=== PATIENT | male | born 1940 | race Caucasian/White ===

== ENCOUNTER → 2017-05-31 | Outpatient (CLI) | payer MEDICARE ==
--- NOTE | 2017-05-31 11:10 | US ---
EXAMINATION TYPE: US duplex aorta DATE OF EXAM: 05/31/2017 COMPARISON: NONE CLINICAL HISTORY: Z13.6 Enc for screening for cardiovascular disorde. EXAM MEASUREMENTS: Abdominal Aorta: Proximal: 2.1 x 2.1 cm Mid: 2.1 x 2.1 cm Distal: 1.7 x 2.1 cm Bifurcation: rt 1.3 x 1.0 cm lt 1.2 x 1.4 cm limited vis due to body habitus, normal aorta as visualized. IMPRESSION: No evidence for abdominal aortic aneurysm.
== END | disposition home or self-care (01) ==
LOC: RADUSWWP 10:08
PROVIDERS: ATTEND Family Medicine
DX: Z13.6 Encounter for screening for cardiovascular disorders (principal)
CPT/HCPCS: 93979

== ENCOUNTER 2018-05-27 13:32 | Inpatient (IN) | payer MEDICARE ==
[2018-05-27] MEDS ORDERED: IPRATROPIUM-ALBUTEROL 3 ML NEB INHALATION STA ×3 (14:02→17:06)
[2018-05-27] MEDS ORDERED: SODIUM CHLORIDE 0.9% 1,000 ML IV STA ×2 (14:02→16:07)
[2018-05-27] MEDS ORDERED: methylPREDNISolone SOD SUCCI 125 MG/2 ML VIAL IV STA (14:02)
--- NOTE | 2018-05-27 14:05 | ED ---
SOB HPI - General Chief Complaint: Shortness of Breath Stated Complaint: ELIUD Time Seen by Provider: 05/27/18 13:51 Source: patient, RN notes reviewed Mode of arrival: ambulatory Limitations: no limitations - History of Present Illness Initial Comments: This is a 78-year-old male history of asthma who states she's been having severe shortness of breath since last night just after he went to bed. He tries home inhalers without much relief. No chest pain reported no fevers chills or sweats he does state he saw his doctor earlier in week was placed on antibiotics and a Medrol Dosepak he is almost always a Dosepak. He has exertional dyspnea. He believes this is an asthma exacerbation he has no other complaints or modifying factors. MD Complaint: shortness of breath - Related Data Home Medications Medication Instructions Recorded Confirmed Aspirin 81 mg PO DAILY 11/26/15 05/27/18 Budesonide/Formoterol Fumarate 2 puff INHALATION RT-BID 11/26/15 05/27/18 [Symbicort 160-4.5 Mcg Inhaler] Cholecalciferol [Vitamin D3] 1,000 unit PO DAILY 11/26/15 05/27/18 Cinnamon Bark [Cinnamon] 500 mg PO BID 11/26/15 05/27/18 Losartan [Cozaar] 25 mg PO DAILY 11/26/15 05/27/18 Metoprolol Tartrate [Lopressor] 75 mg PO BID 11/26/15 05/27/18 Multivitamins, Thera [Multivitamin] 1 tab PO DAILY 11/26/15 05/27/18 Warfarin [Coumadin] 2.5 mg PO SUMOTHSA 11/26/15 05/27/18 Warfarin [Coumadin] 5 mg PO TUWEFR 11/26/15 05/27/18 Azithromycin [Zithromax Z-pack] See Taper PO DIRECTED 05/27/18 05/27/18 Fluticasone Nasal [place] [Flonase 2 spr EA NOSTRIL DAILY 05/27/18 05/27/18 Nasal [place]] Metoprolol Tartrate [Lopressor] 50 mg PO DAILY@1700 05/27/18 05/27/18 Pravastatin Sodium [Pravachol] 80 mg PO DAILY 05/27/18 05/27/18 methylPREDNISolone Dose Pack See Taper PO DIRECTED 05/27/18 05/27/18 [Medrol Dose Pack] Allergies Allergy/AdvReac Type Severity Reaction Status Date / Time No Known Allergies Allergy Verified 05/27/18 13:59 Review of Systems ROS Statement: Those systems with pertinent positive or pertinent negative responses have been documented in the HPI. ROS Other: All systems not noted in ROS Statement are negative. Past Medical History Past Medical History: Atrial Fibrillation, Asthma, Hyperlipidemia, Hypertension History of Any Multi-Drug Resistant Organisms: None Reported Past Surgical History: Heart Catheterization Additional Past Surgical History / Comment(s): EXC CATARACTS. CERVICAL FUSION. TOTAL SUNITHA HIPS. UMB HERNIA. RT SCOPE X2. 16 TOTAL RT KNEE Past Psychological History: No Psychological Hx Reported Smoking Status: Former smoker Past Alcohol Use History: Occasional Past Drug Use History: None Reported - Past Family History Mother Additional Family Medical History / Comment(s): LIVER/COLON CANCER Father Additional Family Medical History / Comment(s): CABG. AGE 83 General Exam - General Exam Comments Initial Comments: This is a well-developed well-nourished awake alert oriented 3 male Limitations: no limitations General appearance: alert, in no apparent distress Head exam: Present: atraumatic, normocephalic, normal inspection Eye exam: Present: normal appearance, PERRL, EOMI. Absent: scleral icterus, conjunctival injection, periorbital swelling ENT exam: Present: normal exam, mucous membranes moist Neck exam: Present: normal inspection, other (No stridor JVD or bruits). Absent : tenderness, meningismus, lymphadenopathy Respiratory exam: Present: wheezes, decreased breath sounds. Absent: respiratory distress, rales, rhonchi, stridor Cardiovascular Exam: Present: regular rate, normal rhythm, normal heart sounds. Absent: systolic murmur, diastolic murmur, rubs, gallop, clicks GI/Abdominal exam: Present: soft, normal bowel sounds. Absent: distended, tenderness, guarding, rebound, rigid Extremities exam: Present: normal inspection, full ROM, normal capillary refill. Absent: tenderness, pedal edema, joint swelling, calf tenderness Back exam: Present: normal inspection Neurological exam: Present: alert, oriented X3, CN II-XII intact Psychiatric exam: Present: normal affect, normal mood Skin exam: Present: warm, dry, intact, normal color. Absent: rash Course Vital Signs 05/27/18 05/27/18 05/27/18 13:46 14:17 14:28 Temperature 98.2 F Pulse Rate 76 104 H 96 Respiratory 18 Rate Blood Pressure 164/89 O2 Sat by Pulse 95 Oximetry 05/27/18 05/27/18 14:40 15:30 Temperature Pulse Rate 88 98 Respiratory 16 Rate Blood Pressure 132/93 O2 Sat by Pulse 96 Oximetry - Reevaluation(s) Reevaluation #1: 05/27/18 15:15 Patient is still dyspneic and only feels better with oxygen. Another updraft has been ordered Reevaluation #2: 05/27/18 17:04 Reevaluation patient reveals minimal improvement thus far with his treatment. The distal of breath will be ordered. Medical Decision Making - Medical Decision Making Patient is feeling to improve with aggressive severe treatment. He has not oral antibiotics and steroids I'll patient and his family. He will be admitted for inpatient treatment. - Lab Data Result diagrams: 05/27/18 14:22 05/27/18 14:22 Lab Results 05/27/18 05/27/18 05/27/18 Range/Units 14:22 14:22 14:22 WBC 6.7 (3.8-10.6) k/uL RBC 5.06 (4.30-5.90) m/uL Hgb 15.2 (13.0-17.5) gm/dL Hct 47.0 (39.0-53.0) % MCV 92.9 (80.0-100.0) fL MCH 30.0 (25.0-35.0) pg MCHC 32.3 (31.0-37.0) g/dL RDW 14.5 (11.5-15.5) % Plt Count 221 (150-450) k/uL Neutrophils % 85 % Lymphocytes % 8 % Monocytes % 4 % Eosinophils % 1 % Basophils % 0 % Neutrophils # 5.7 (1.3-7.7) k/uL Lymphocytes # 0.5 L (1.0-4.8) k/uL Monocytes # 0.3 (0-1.0) k/uL Eosinophils # 0.1 (0-0.7) k/uL Basophils # 0.0 (0-0.2) k/uL PT (9.0-12.0) sec INR (<1.2) APTT (22.0-30.0) sec Sodium 141 (137-145) mmol/L Potassium 4.3 (3.5-5.1) mmol/L Chloride 104 (98-107) mmol/L Carbon Dioxide 27 (22-30) mmol/L Anion Gap 10 mmol/L BUN 27 H (9-20) mg/dL Creatinine 1.04 (0.66-1.25) mg/dL Est GFR (CKD-EPI)AfAm 81 (>60 ml/min/1.73 sqM) Est GFR (CKD-EPI)NonAf 70 (>60 ml/min/1.73 sqM) Glucose 151 H (74-99) mg/dL Calcium 9.0 (8.4-10.2) mg/dL Magnesium 2.0 (1.6-2.3) mg/dL Total Bilirubin 0.6 (0.2-1.3) mg/dL AST 69 H (17-59) U/L ALT 60 (21-72) U/L Alkaline Phosphatase 81 (38-126) U/L Total Creatine Kinase 278 H (55-170) U/L CK-MB (CK-2) 4.3 H (0.0-2.4) ng/mL CK-MB (CK-2) Rel Index 1.5 Troponin I <0.012 (0.000-0.034) ng/mL NT-Pro-B Natriuret Pep pg/mL Total Protein 6.7 (6.3-8.2) g/dL Albumin 4.0 (3.5-5.0) g/dL 05/27/18 05/27/18 Range/Units 14:22 14:22 WBC (3.8-10.6) k/uL RBC (4.30-5.90) m/uL Hgb (13.0-17.5) gm/dL Hct (39.0-53.0) % MCV (80.0-100.0) fL MCH (25.0-35.0) pg MCHC (31.0-37.0) g/dL RDW (11.5-15.5) % Plt Count (150-450) k/uL Neutrophils % % Lymphocytes % % Monocytes % % Eosinophils % % Basophils % % Neutrophils # (1.3-7.7) k/uL Lymphocytes # (1.0-4.8) k/uL Monocytes # (0-1.0) k/uL Eosinophils # (0-0.7) k/uL Basophils # (0-0.2) k/uL PT 39.3 H (9.0-12.0) sec INR 4.1 H (<1.2) APTT 31.8 H (22.0-30.0) sec Sodium (137-145) mmol/L Potassium (3.5-5.1) mmol/L Chloride (98-107) mmol/L Carbon Dioxide (22-30) mmol/L Anion Gap mmol/L BUN (9-20) mg/dL Creatinine (0.66-1.25) mg/dL Est GFR (CKD-EPI)AfAm (>60 ml/min/1.73 sqM) Est GFR (CKD-EPI)NonAf (>60 ml/min/1.73 sqM) Glucose (74-99) mg/dL Calcium (8.4-10.2) mg/dL Magnesium (1.6-2.3) mg/dL Total Bilirubin (0.2-1.3) mg/dL AST (17-59) U/L ALT (21-72) U/L Alkaline Phosphatase (38-126) U/L Total Creatine Kinase (55-170) U/L CK-MB (CK-2) (0.0-2.4) ng/mL CK-MB (CK-2) Rel Index Troponin I (0.000-0.034) ng/mL NT-Pro-B Natriuret Pep 442 pg/mL Total Protein (6.3-8.2) g/dL Albumin (3.5-5.0) g/dL - EKG Data -: EKG Interpreted by Me (EKG shows atrial fibrillation with a rapid ventricular response rate of 105) - Radiology Data Radiology results: report reviewed (I did review the imaging and report no acute findings.), image reviewed Critical Care Time Critical Care Time: Yes Critical Care Time: 39 minutes of critical care time which includes initial presentation with history physical labs x-rays multiple reevaluation patient responsive therapy discuss with the patient family regarding findings discussed with the admitting physician admission orders and documentation of the above. Disposition Clinical Impression: Acute exacerbation of chronic obstructive airways disease, Adult respiratory distress syndrome, Failure of outpatient treatment Disposition: ADMITTED IP TO THIS HOSP Condition: Serious Referrals: Jonny Stuart MD [Primary Care Provider] - 1-2 days
[2018-05-27 14:35] LABS: Basophils % (A) 0 %; Eosinophils # (A) 0.1 k/uL (0-0.7); Eosinophils % (A) 1 %; HGB 15.2 gm/dL (13.0-17.5); Lymphocytes # (A) 0.5 k/uL (1.0-4.8); Lymphocytes % (A) 8 %; MCHC 32.3 g/dL (31.0-37.0); MCV 92.9 fL (80.0-100.0); Mean Platelet Volume 6.4; Monocytes # (A) 0.3 k/uL (0-1.0); Monocytes % (A) 4 %; Neutrophils # (A) 5.7 k/uL (1.3-7.7); Neutrophils % (A) 85 %; Platelet Count 221 k/uL (150-450); RBC 5.06 m/uL (4.30-5.90); RDW 14.5 % (11.5-15.5); WBC 6.7 k/uL (3.8-10.6)
[2018-05-27 14:45] LABS: Potassium 4.3 mmol/L (3.5-5.1); Total Bilirubin 0.6 mg/dL (0.2-1.3); Total Protein 6.7 g/dL (6.3-8.2)
[2018-05-27 14:55] LABS: INR 4.1 (<1.2); Partial Thromboplastin Time 31.8 sec (22.0-30.0); Prothrombin Time 39.3 sec (9.0-12.0)
[2018-05-27 14:59] LABS: Creatine Kinase 278 U/L (55-170)
--- NOTE | 2018-05-27 15:01 | XR ---
EXAMINATION TYPE: XR chest 2V DATE OF EXAM: 05/27/2018 COMPARISON: NONE HISTORY: Dyspnea, difficulty breathing TECHNIQUE: Frontal and lateral views of the chest are obtained. FINDINGS: There is no focal air space opacity, pleural effusion, or pneumothorax seen. The cardiac silhouette size is within normal limits. The osseous structures are intact. There are overlying car diac leads. Atheromatous change present within the aorta. Prominent lung volumes may be indicative of underlying COPD. There is thoracic spondylosis. IMPRESSION: No acute cardiopulmonary process.
[2018-05-27 15:10] LABS: Creatine Kinase MB 4.3 ng/mL (0.0-2.4); Troponin I <0.012 ng/mL (0.000-0.034)
[2018-05-27 18:21] VITALS: BMI 35.9
[2018-05-27] MEDS: methylPREDNISolone SOD SUCCI 125 MG/2 ML VIAL IV SCH ×2 (19:11→22:56)
[2018-05-27] MEDS: METOPROLOL TARTRATE 50 MG TAB PO SCH (19:21)
[2018-05-27 21:04] LABS: Glucose,Whole Blood 203 mg/dL (75-99)
[2018-05-27] MEDS: IPRATROPIUM-ALBUTEROL 3 ML NEB INHALATION SCH ×2 (21:24→23:37)
[2018-05-27] MEDS: INSULIN ASPART 100 UNIT/ML 1 ML 10 ML VIAL SQ SCH (21:37)
[2018-05-28] MEDS: IPRATROPIUM-ALBUTEROL 3 ML NEB INHALATION SCH ×5 (03:16→21:01)
[2018-05-28 06:10] LABS: Glucose,Whole Blood 172 mg/dL (75-99)
[2018-05-28] MEDS: methylPREDNISolone SOD SUCCI 125 MG/2 ML VIAL IV SCH ×2 (06:21→12:44)
[2018-05-28] MEDS: INSULIN ASPART 100 UNIT/ML 1 ML 10 ML VIAL SQ SCH ×4 (06:23→21:37)
[2018-05-28 07:03] LABS: INR 3.1 (<1.2); Prothrombin Time 29.9 sec (9.0-12.0)
[2018-05-28] MEDS: PRAVASTATIN SODIUM 80 MG TAB PO SCH (08:21)
[2018-05-28] MEDS: METOPROLOL TARTRATE 50 MG TAB PO SCH ×2 (08:21→17:45)
[2018-05-28] MEDS: CHOLECALCIFEROL 1,000 UNIT TAB PO SCH (08:21)
[2018-05-28] MEDS: ASPIRIN 81 MG PO SCH (08:21)
[2018-05-28] MEDS: LOSARTAN 25 MG TAB PO SCH (08:21)
[2018-05-28] MEDS ORDERED: AZITHROMYCIN 250 MG TAB PO SCH (09:00)
[2018-05-28 12:22] LABS: Glucose,Whole Blood 141 mg/dL (75-99)
[2018-05-28] MEDS: MULTIVITAMINS, THERA 1 EACH TAB PO SCH (12:44)
[2018-05-28] MEDS: FLUTICASONE 50MCG/SPRAY NASAL 16GM EA NOSTRIL SCH (12:44)
--- NOTE | 2018-05-28 13:32 | P.CRDCN ---
History of Present Illness History of present illness: This is a pleasant 78 showed male past medical history significant for chronic persistent atrial fibrillation status post failed cardioversion on long-term anticoagulation with Coumadin, asthma, dyslipidemia and hypertension. He denies history of coronary artery disease. We have asked to see him in consultation secondary to atrial fibrillation with poorly controlled ventricular rate. He follows with Dr. Guerrier in the office. He presented to the hospital yesterday with symptoms of shortness of breath and cough. He has been diagnosed with an acute exacerbation of COPD. He denies symptoms of chest discomfort, palpitations or dizziness. EKG on arrival revealed atrial fibrillation with a rate of 105 with right bundle branch block. He is currently maintained on Lopressor 75 mg twice a day with an additional dose of 50 mg taken around dinnertime. Chest x-ray on admission is negative for acute cardiopulmonary process. Laboratory data reviewed, WBC 6.7, hemoglobin 15.2, platelets 221, sodium 141, potassium 4.3, creatinine 1.04, magnesium 2.0, cardiac enzymes negative 1, NT proBNP 442, INR 4.1 on admission repeat this morning 3.1. Coumadin was held last night. Per the patient he had his level checked in the office last week and advised to take an additional dose of 5 mg. Most recent echocardiogram obtained in the office February 2018 reveals preserved left ventricular systolic function with ejection fraction 50-55%, mild mitral regurgitation and mildly dilated left atrium. At the time of my exam: CONSTITUTIONAL: Denies fever. Denies chills. EYES: Denies blurred vision. Denies vision changes. Denies eye pain. EARS, NOSE, MOUTH & THROAT: Denies headache. Denies sore throat. Denies ear pain. CARDIOVASCULAR: Denies chest pain. Denies shortness of breath. Denies orthopnea. Denies PND. Denies palpitations. RESPIRATORY: Complains of cough. GASTROINTESTINAL: Denies abdominal pain. Denies diarrhea. Denies constipation. Denies nausea. Denies vomiting. MUSCULOSKELETAL: Denies myalgias. INTEGUMENTARY: Denies pruitis. Denies rash. NEUROLOGIC: Denies numbness. Denies tingling. Denies weakness. PSYCHIATRIC: Denies anxiety. Denies depression. ENDOCRINE: Denies fatigue. Denies weight change. Denies polydipsia. Denies polyurina. GENITOURINARY: Denies burning, hematuria or urgency with micturation. HEMATOLOGIC: Denies history of anemia. Denies bleeding. Blood pressure 146/93 heart rate 102 afebrile maintaining oxygen saturation on room air GENERAL: This is a 78-year-old Arlene male in no apparent distress at the time of my examination. HEENT: Head is atraumatic, normocephalic. Pupils are equal, round. Sclerae anicteric. Conjunctivae are clear. Mucous membranes of the mouth are moist. Neck is supple. There is no jugular venous distention. No carotid bruit is heard. LUNGS: Clear to auscultation no wheezes, rales or rhonchi. No chest wall tenderness is noted on palpation or with deep breathing. HEART: Regular rate and rhythm without murmurs, rubs or gallops. S1 and S2 heard. ABDOMEN: Soft, nontender. Bowel sounds are heard. No organomegaly noted. EXTREMITIES: No evidence of peripheral edema and no calf tenderness noted. VASCULAR: Radial and dorsalis pedis pulses palpated, no evidence of clubbing. NEUROLOGIC: Patient is awake, alert and oriented x3. ASSESSMENT Permanent atrial fibrillation with poorly controlled ventricular rate on long- term anticoagulation with Coumadin Supratherapeutic INR, Coumadin was held last night Hypertension Dyslipidemia PLAN Continue current medical regimen. Ongoing telemetry monitoring. Review of the office records reveals this is a gentleman who frequently struggles with poorly controlled ventricular rates. Considering he is receiving duoneb as well as IV steroids we will not add any further medication at this time however if his rates continue to remain elevated we will consider adding Cardizem. Thank you kindly for this consultation. The above impression and plan of care have been discussed and directed by the signing physician. Teresita Peña, nurse practitioner, acting as scribe for signing physician. Past Medical History Past Medical History: Atrial Fibrillation, Asthma, Hyperlipidemia, Hypertension History of Any Multi-Drug Resistant Organisms: None Reported Past Surgical History: Heart Catheterization Additional Past Surgical History / Comment(s): EXC CATARACTS. CERVICAL FUSION. TOTAL SUNITHA HIPS. UMB HERNIA. RT SCOPE X2. 7--16 TOTAL RT KNEE Past Anesthesia/Blood Transfusion Reactions: No Reported Reaction Past Psychological History: No Psychological Hx Reported Smoking Status: Former smoker Past Alcohol Use History: Occasional Additional Past Alcohol Use History / Comment(s): SMOKED 15 YEARS EST, 1 PPD, QUIT 1988 EST. ALCOHOL ADMITS TO 2 SHOT OF ALCOHOL A DAY. Past Drug Use History: None Reported - Past Family History Mother Additional Family Medical History / Comment(s): LIVER/COLON CANCER Father Family Medical History: Myocardial Infarction ([place]) Additional Family Medical History / Comment(s): CABG. AGE 83 Medications and Allergies Home Medications Medication Instructions Recorded Confirmed Type Aspirin 81 mg PO DAILY 11/26/15 05/27/18 History Budesonide/Formoterol Fumarate 2 puff INHALATION RT-BID 11/26/15 05/27/18 History [Symbicort 160-4.5 Mcg Inhaler] Cholecalciferol [Vitamin D3] 1,000 unit PO DAILY 11/26/15 05/27/18 History Cinnamon Bark [Cinnamon] 500 mg PO BID 11/26/15 05/27/18 History Losartan [Cozaar] 25 mg PO DAILY 11/26/15 05/27/18 History Metoprolol Tartrate [Lopressor] 75 mg PO BID 11/26/15 05/27/18 History Multivitamins, Thera [Multivitamin] 1 tab PO DAILY 11/26/15 05/27/18 History Warfarin [Coumadin] 2.5 mg PO SUMOTHSA 11/26/15 05/27/18 History Warfarin [Coumadin] 5 mg PO TUWEFR 11/26/15 05/27/18 History Azithromycin [Zithromax Z-pack] See Taper PO DIRECTED 05/27/18 05/27/18 History Fluticasone Nasal [place] [Flonase 2 spr EA NOSTRIL DAILY 05/27/18 05/27/18 History Nasal [place]] Metoprolol Tartrate [Lopressor] 50 mg PO DAILY@1700 05/27/18 05/27/18 History Pravastatin Sodium [Pravachol] 80 mg PO DAILY 05/27/18 05/27/18 History methylPREDNISolone Dose Pack See Taper PO DIRECTED 05/27/18 05/27/18 History [Medrol Dose Pack] Allergies Allergy/AdvReac Type Severity Reaction Status Date / Time No Known Allergies Allergy Verified 05/27/18 13:59 Physical Exam Vitals: Vital Signs Temp Pulse Pulse Pulse Resp BP BP 05/28/18 12:11 102 H 05/28/18 12:02 108 H 05/28/18 08:52 110 H 05/28/18 08:34 100 05/28/18 08:00 98.1 F 110 H 146/93 05/28/18 04:00 98.1 F 108 H 18 135/78 05/28/18 03:26 118 H 05/28/18 03:16 117 H 05/28/18 00:00 97.8 F 100 18 124/87 05/27/18 23:46 108 H 05/27/18 23:37 109 H 05/27/18 21:35 112 H 05/27/18 21:24 110 H 20 05/27/18 20:00 98.2 F 104 H 20 143/73 05/27/18 18:03 116 H 20 146/75 05/27/18 17:39 121 H 05/27/18 17:29 117 H 05/27/18 17:28 98.1 F 107 H 18 128/94 05/27/18 17:00 105 H 13 120/98 05/27/18 16:30 115 H 10 L 128/92 05/27/18 16:00 110 H 18 122/76 05/27/18 15:40 112 H 05/27/18 15:30 98 05/27/18 14:40 88 16 132/93 05/27/18 14:28 96 05/27/18 14:17 104 H 05/27/18 13:46 98.2 F 76 18 164/89 Pulse Ox 05/28/18 12:11 05/28/18 12:02 05/28/18 08:52 05/28/18 08:34 05/28/18 08:00 93 L 05/28/18 04:00 94 L 05/28/18 03:26 05/28/18 03:16 05/28/18 00:00 93 L 05/27/18 23:46 05/27/18 23:37 05/27/18 21:35 05/27/18 21:24 92 L 05/27/18 20:00 97 05/27/18 18:03 94 L 05/27/18 17:39 05/27/18 17:29 05/27/18 17:28 95 05/27/18 17:00 95 05/27/18 16:30 94 L 05/27/18 16:00 97 05/27/18 15:40 05/27/18 15:30 05/27/18 14:40 96 05/27/18 14:28 05/27/18 14:17 05/27/18 13:46 95 Intake and Output 05/27/18 05/28/18 05/28/18 22:59 06:59 14:59 Intake Total 416 Output Total 1 Balance -1 416 Intake: Oral 416 Output: Urine/Stool Mix 1 Other: # Voids 1 Weight 113.4 kg 120.1 kg Results 05/27/18 14:22 05/27/18 14:22 Cardiac Enzymes 05/27/18 05/27/18 Range/Units 14:22 14:22 AST 69 H (17-59) U/L CK-MB (CK-2) 4.3 H (0.0-2.4) ng/mL Troponin I <0.012 (0.000-0.034) ng/mL Coagulation 05/27/18 05/28/18 Range/Units 14:22 06:20 PT 39.3 H 29.9 H (9.0-12.0) sec APTT 31.8 H (22.0-30.0) sec CBC 05/27/18 Range/Units 14:22 WBC 6.7 (3.8-10.6) k/uL RBC 5.06 (4.30-5.90) m/uL Hgb 15.2 (13.0-17.5) gm/dL Hct 47.0 (39.0-53.0) % Plt Count 221 (150-450) k/uL Comprehensive Metabolic Panel 05/27/18 Range/Units 14:22 Sodium 141 (137-145) mmol/L Potassium 4.3 (3.5-5.1) mmol/L Chloride 104 (98-107) mmol/L Carbon Dioxide 27 (22-30) mmol/L BUN 27 H (9-20) mg/dL Creatinine 1.04 (0.66-1.25) mg/dL Glucose 151 H (74-99) mg/dL Calcium 9.0 (8.4-10.2) mg/dL AST 69 H (17-59) U/L ALT 60 (21-72) U/L Alkaline Phosphatase 81 (38-126) U/L Total Protein 6.7 (6.3-8.2) g/dL Albumin 4.0 (3.5-5.0) g/dL Current Medications Generic Name Dose Route Start Last Admin Trade Name Freq PRN Reason Stop Dose Admin Albuterol/Ipratropium 3 ml 05/27/18 21:00 05/28/18 12:01 Duoneb 0.5 Mg-3 Mg/3 Ml Soln INHALATION 3 ml RT-Q4H [facility] Administration Aspirin 81 mg 05/28/18 09:00 05/28/18 08:21 Aspirin PO 81 mg DAILY [facility] Administration Budesonide 1 mg 05/28/18 20:00 Pulmicort INHALATION RT-BID [facility] Cholecalciferol 1,000 unit 05/28/18 09:00 05/28/18 08:21 Vitamin D3 PO 1,000 unit DAILY [facility] Administration Doxycycline Monohydrate 100 mg 05/28/18 21:00 Vibramycin PO BID [facility] Fluticasone Propionate 2 spray 05/28/18 09:00 05/28/18 12:44 Flonase Nasal [place] EA NOSTRIL 2 spray DAILY [facility] Administration Formoterol Fumarate 20 mcg 05/28/18 20:00 Perforomist INHALATION RT-BID [facility] Insulin Aspart 0 unit 05/27/18 21:17 05/28/18 12:44 Novolog SQ 2 unit ACHS [facility] Administration Protocol Losartan Potassium 25 mg 05/28/18 09:00 05/28/18 08:21 Cozaar PO 25 mg DAILY [facility] Administration Methylprednisolone Sodium Succinate 60 mg 05/27/18 18:00 05/28/18 12:44 Solu-Medrol IV 60 mg Q6HR [facility] Administration Metoprolol Tartrate 75 mg 05/28/18 09:00 05/28/18 08:21 Lopressor PO 75 mg DAILY [facility] Administration Metoprolol Tartrate 50 mg 05/27/18 19:30 05/27/18 19:21 Lopressor PO 50 mg DAILY@1700 [facility] Administration Multivitamins 1 each 05/28/18 12:00 05/28/18 12:44 Theragran PO 1 each DAILY@1200 [facility] Administration Pravastatin Sodium 80 mg 05/28/18 09:00 05/28/18 08:21 Pravachol PO 80 mg DAILY [facility] Administration Warfarin Sodium 5 mg 05/30/18 17:12 Coumadin PO TUWEFR [facility] Warfarin Sodium 2.5 mg 05/27/18 17:15 Coumadin PO SUMOTHSA [facility] Intake and Output 05/27/18 05/28/18 05/28/18 22:59 06:59 14:59 Intake Total 416 Output Total 1 Balance -1 416 Intake: Oral 416 Output: Urine/Stool Mix 1 Other: # Voids 1 Weight 113.4 kg 120.1 kg 05/27/18 14:22 05/27/18 14:22
--- NOTE | 2018-05-28 14:01 | CONS ---
CONSULTATION DATE OF SERVICE: May 28, 2018 This is a 78-year-old male who presented to the emergency department with complaints of having an asthma attack. He complains of shortness of breath, chest tightness, wheezing, coughing about a day or so prior to admission. He was tried using his regular medications which include a Ventolin HFA inhaler and Symbicort, but he states that they did not really help. He was seen in the emergency room. The patient was admitted to the hospital for an asthma exacerbation. He recently finished off some antibiotics and a Medrol Dosepak given to him by his primary doctor, Dr. Stuart in [place]. He was apparently being treated for asthma exacerbation and possible pneumonia. The patient sees my partner, Dr. Sauceda. HOME MEDICATIONS: Include Symbicort, vitamin D3, Sinemet, Cozaar, metoprolol, multivitamins, Coumadin, Zithromax, which he just finished, Flonase, metoprolol, pravastatin and Medrol Dosepak, which he just finished. ALLERGIES: Denied. MEDICAL HISTORY: Atrial fibrillation, asthma, hyperlipidemia, hypertension. SURGICAL HISTORY: Includes heart catheterization, cataract surgery, cervical fusion, bilateral hip surgery, umbilical hernia repair, right knee scope. SOCIAL HISTORY: Positive for previous tobacco use. He smoked for about 12 or so years when he was younger. Does not smoke currently. OCCUPATIONAL HISTORY: Noncontributory. Illicit drug history is negative. FAMILY HISTORY: Positive for liver and colon cancer as well as bypass grafting. REVIEW OF SYSTEMS: Constitutional: Negative. Neurologic: Negative. HEENT negative. CARDIOVASCULAR: Irregular rapid heartbeat. PULMONARY: Shortness of breath, chest tightness, wheezing and cough. GI/ negative. RHEUMATOLOGIC/IMMUNOLOGIC negative. ENDOCRINOLOGIC and DERMATOLOGIC: Negative. It should be noted the patient has a history of chronic atrial fibrillation. The patient developed a rapid ventricular response as a result of his history of chronic atrial fibrillation. For that, he was transferred down from the 4th floor to the 3rd. I think he was started up on four and was transferred down to the cardiac floor on 3 because of the RVR. PHYSICAL EXAMINATION: Current vital signs are reviewed temperature 98.1. Heart rate about 110, respiratory rate 18, blood pressure 146/93, mean 110, room air saturation 93-94 percent. Appears in no acute distress. HEENT examination is grossly unremarkable. Mucous membranes are moist. No nasal O2 noted. NECK: Supple. Full range of motion. No adenopathy or thyromegaly. Neck veins are flat. Cardiovascular examination reveals a regular rhythm and rate. Heart rate about 110. He is clearly in atrial fibrillation. S1, S2 normal. No murmur. LUNGS: Some expiratory wheezes and rhonchi. There is prolongation on forced maneuver. No crackles. Breath sounds equal bilaterally. ABDOMEN: Soft. Bowel sounds are heard. Extremities are intact. No cyanosis, clubbing, or edema. Skin without rash. Neurologic examination is brief but nonfocal. LABS: Reviewed. White count, hemoglobin, hematocrit and platelet count are all normal. PT/INR were 29.9 and 3.1 today. Sodium, potassium, chloride normal. CO2 normal. Anion gap is 10. BUN and creatinine were 27, 1.04. The rest of the labs look good. Chest x-ray is unremarkable. EKG is consistent with atrial fibrillation. Medications are reviewed. ASSESSMENT: 1. Acute asthma exacerbation, possibly complicated by purulent tracheobronchitis. 2. Atrial fibrillation, chronically, now with rapid ventricular response. 3. Obesity. 4. Vitamin D deficiency. 5. History of hypertension. 6. Hyperlipidemia. 7. History of cataract surgery. 8. History of multiple orthopedic procedures. 9. Recent purulent tracheobronchitis/bronchopneumonia, treated by his primary doctor, Dr. Jonny Stuart. 10.Chronic anticoagulation with Coumadin because of his atrial fibrillation. PLAN: His medications reviewed. We will make sure that he is an appropriate medications for his asthma flare up. That would include short-acting beta agonist, short-acting muscarinic antagonist, long-acting beta agonist, inhaled corticosteroids, systemic corticosteroids and oral antibiotics. Additional recommendations and suggestions are forthcoming. We will continue to follow. We will await Cardiology input for his rapid ventricular response. MMODL / IJN: [id number] / MTDD
[2018-05-28 16:50] LABS: Glucose,Whole Blood 163 mg/dL (75-99)
[2018-05-28] MEDS ORDERED: METOPROLOL TARTRATE 50 MG TAB PO SCH (17:00)
[2018-05-28] MEDS: methylPREDNISolone SOD SUCCI 40 MG/ML 1 ML VIAL IV SCH ×2 (17:44→23:25)
--- NOTE | 2018-05-28 18:33 | HP ---
HISTORY AND PHYSICAL DATE OF ADMISSION: May 27, 2018. DATE OF SERVICE: May 28, 2018. PRESENTING COMPLAINT: Short of breath, wheezing. HISTORY OF PRESENT COMPLAINT: Very pleasant 78-year-old patient of Dr. Stuart who follows with [employer] Dr. Sauceda. Chronic stable medical conditions include hypertension, hyperlipidemia, obesity. Three years ago, started getting short of breath and a lot of wheezing, had a cough, some clear sputum. No fever, some chills. Continued to get worse. This started off as an upper respiratory tract symptoms with some sinus drainage. Nasal congestion was also was his was having it. Decreased appetite. Tired, run down. Patient did go to a family doctor. Did feel better. Decided to come in. Was admitted with acute asthma exacerbation. Also found to be in atrial fibrillation, rapid ventricular rate. Admitted for the same. Does feel tired and run down. Denied any fever. There was no chest pain. REVIEW OF SYSTEMS: CONSTITUTIONAL: Tired. HEENT as above. RESPIRATORY: As above. CARDIOVASCULAR: No chest pain or pressure. GASTROINTESTINAL: None. GENITOURINARY: None. MUSCULOSKELETAL: None. DERMATOLOGICAL, HEMATOLOGIC, LYMPHATICS none. PSYCHIATRY: None. NEUROLOGICAL: None. PAST MEDICAL HISTORY: Atrial fibrillation, asthma, hyperlipidemia, hypertension. PAST SURGICAL HISTORY: Cardiac catheterization, cervical fusion, total bilateral hips, right knee replacement, umbilical hernia repair, cataract extraction. SOCIAL HISTORY: Has 2 shots daily of alcohol. Smoked a pack a day for 15 years. Stopped in 1988. . Retired. FAMILY HISTORY: Of liver and colon cancer, myocardial infarction. HOME MEDICATIONS: 1. Multivitamin 1 tablet p.o. daily. 2. Zithromax. 3. Z-Edgard. 4. Medrol Dosepak. 5. Pravachol 80 mg p.o. daily. 6. Lopressor 50 mg p.o. daily. 7. Flonase. 8. Lopressor 75 mg b.i.d. 9. Cozaar 25 mg a day. 10.Symbicort 160/4.5, 2 puffs b.i.d. 11.Coumadin 5 mg on Tuesday, Tuesday, Tuesday and 2.5 mg on Tuesday, Tuesday, , and Tuesday. 12.Cinnamon 500 mg p.o. b.i.d. 13.Vitamin D3 1000 units p.o. daily. 14.Aspirin 81 mg p.o. daily. ALLERGIES: None. PHYSICAL EXAMINATION: VITAL SIGNS ON PRESENTATION: Temperature 98.2, pulse 104, respiration 18, blood pressure 152/89, pulse ox 95% on room air. GENERAL APPEARANCE: Well built. BMI 38, sitting up. Tired. EYES: Pupils equal. Conjunctivae normal. HEENT: External appearance of nose and ears normal. Oral cavity normal. NECK: JVD not raised. Mass not palpable. RESPIRATORY: Effort increased. LUNGS: Decreased breath sounds. Prolonged expiration. Some wheezing. CARDIOVASCULAR: Heart sounds regular. No edema. ABDOMEN: Distended, soft. Liver and spleen not palpable. LYMPHATICS: No lymph nodes palpable in the neck or axilla. PSYCHIATRY: Alert and oriented x3. Mood and affect normal. NEUROLOGICAL: Pupils equal. Cranial nerves grossly intact. Power and sensation grossly intact. INVESTIGATIONS: White count 6.7, hemoglobin 15.2, INR 4.1, potassium 4.3, BUN 27, creatinine 1.04. Accu-Cheks 203, 172. Troponin less than 0.012. ProBNP 442. EKG tracing personally reviewed by me shows atrial fibrillation with a rate of 105. Chest x-ray film reviewed by me shows borderline cardiomegaly. No obvious infiltrates. ASSESSMENT: 1. Acute moderate asthma exacerbation from acute tracheobronchitis. 2. Persistent atrial fibrillation, rate uncontrolled. 3. Hyperlipidemia. 4. Essential hypertension. 5. Obesity BMI 38. PLAN: Patient is put on IV Solu-Medrol, bronchodilators, inhaled steroids. Home medications are resumed. Consultations both made to Pulmonary and Cardiology. Care was discussed with the patient and at the bedside. We will hold off Coumadin today. The patient probably needs 2 nights in the hospital. Questions were discussed. Copy to Dr. Stuart. MMODL / IJN: [id number] /
[2018-05-28] MEDS: FORMOTEROL FUMARATE 20 MCG/2 ML NEBU INHALATION SCH (21:01)
[2018-05-28] MEDS: BUDESONIDE 1 MG/2 ML NEBU INHALATION SCH (21:01)
[2018-05-28 21:04] LABS: Glucose,Whole Blood 146 mg/dL (75-99)
[2018-05-28] MEDS: DOXYCYCLINE 100 MG CAP PO SCH (21:37)
[2018-05-29] MEDS: IPRATROPIUM-ALBUTEROL 3 ML NEB INHALATION SCH ×5 (00:15→16:00)
[2018-05-29 00:46] VITALS: TEMP 97.1
[2018-05-29 06:15] LABS: INR 2.7 (<1.2); Prothrombin Time 25.7 sec (9.0-12.0)
[2018-05-29 06:27] LABS: Glucose,Whole Blood 160 mg/dL (75-99)
[2018-05-29] MEDS: INSULIN ASPART 100 UNIT/ML 1 ML 10 ML VIAL SQ SCH ×2 (06:33→12:31)
[2018-05-29] MEDS: FLUTICASONE 50MCG/SPRAY NASAL 16GM EA NOSTRIL SCH (08:27)
[2018-05-29] MEDS: MULTIVITAMINS, THERA 1 EACH TAB PO SCH (08:28)
[2018-05-29] MEDS: CHOLECALCIFEROL 1,000 UNIT TAB PO SCH (08:28)
[2018-05-29] MEDS: LOSARTAN 25 MG TAB PO SCH (08:28)
[2018-05-29] MEDS: methylPREDNISolone SOD SUCCI 40 MG/ML 1 ML VIAL IV SCH (08:28)
[2018-05-29] MEDS: ASPIRIN 81 MG PO SCH (08:28)
[2018-05-29] MEDS: PRAVASTATIN SODIUM 80 MG TAB PO SCH (08:28)
[2018-05-29] MEDS: DOXYCYCLINE 100 MG CAP PO SCH (08:28)
[2018-05-29] MEDS: METOPROLOL TARTRATE 50 MG TAB PO SCH (08:31)
[2018-05-29] MEDS: FORMOTEROL FUMARATE 20 MCG/2 ML NEBU INHALATION SCH (08:41)
[2018-05-29] MEDS: BUDESONIDE 1 MG/2 ML NEBU INHALATION SCH (08:41)
[2018-05-29 11:22] LABS: Glucose,Whole Blood 158 mg/dL (75-99)
[2018-05-29 11:27] VITALS: BP 117/78; RESP 16
[2018-05-29 12:23] VITALS: PULSE 68
[2018-05-29 12:31] LABS: Hemoglobin A1C 6.1 % (4.0-6.0)
--- NOTE | 2018-05-29 14:15 | P.PN ---
Subjective Progress Note Date: 05/29/18 This is a pleasant 78 showed male past medical history significant for chronic persistent atrial fibrillation status post failed cardioversion on long-term anticoagulation with Coumadin, asthma, dyslipidemia and hypertension. He denies history of coronary artery disease. We were asked to see him in consultation secondary to atrial fibrillation with poorly controlled ventricular rate. He follows with Dr. Burgess in the office. He presented to the hospital with symptoms of shortness of breath and cough. He has been diagnosed with an acute exacerbation of COPD. He denies symptoms of chest discomfort, palpitations or dizziness. EKG on arrival revealed atrial fibrillation with a rate of 105 with right bundle branch block. His strips today continue to show atrial fibrillation, heart rate in the 90s, blood pressure 120/80, INR today 2.7. A long discussion with the patient today regarding anticoagulation with one of the newer agents, as he did come in with an elevated INR and according to the patient has had some difficulty in maintaining steady INRs. Willing to be placed on one of the newer anticoagulants, we will check on coverage regarding this Objective - Vital Signs Vital signs: Vital Signs Temp 97.1 F L 05/29/18 08:25 Pulse 68 05/29/18 12:22 Resp 16 05/29/18 11:20 BP 117/78 05/29/18 11:20 Pulse Ox 94 L 05/29/18 11:20 Intake & Output 05/28/18 05/29/18 05/29/18 18:59 06:59 18:59 Intake Total 1256 480 582 Balance 1256 480 582 Weight 119.7 kg Intake: Intake, IV Titration 600 Amount Sodium Chloride 0.9% 1, 600 000 ml @ 100 mls/hr IV . Q10H STA Rx#:[id number] Oral [phone] Other: # Voids 2 2 1 - Exam Blood pressure 146/93 heart rate 102 afebrile maintaining oxygen saturation on room air GENERAL: This is a 78-year-old Arlene male in no apparent distress at the time of my examination. HEENT: Head is atraumatic, normocephalic. Pupils are equal, round. Sclerae anicteric. Conjunctivae are clear. Mucous membranes of the mouth are moist. Neck is supple. There is no jugular venous distention. No carotid bruit is heard. LUNGS: Clear to auscultation no wheezes, rales or rhonchi. No chest wall tenderness is noted on palpation or with deep breathing. HEART: Regular rate and rhythm without murmurs, rubs or gallops. S1 and S2 heard. ABDOMEN: Soft, nontender. Bowel sounds are heard. No organomegaly noted. EXTREMITIES: No evidence of peripheral edema and no calf tenderness noted. VASCULAR: Radial and dorsalis pedis pulses palpated, no evidence of clubbing. NEUROLOGIC: Patient is awake, alert and oriented x3. - Labs CBC & Chem 7: 05/27/18 14:22 05/27/18 14:22 Labs: Abnormal Lab Results - Last 24 Hours (Table) 05/28/18 05/28/18 05/28/18 Range/Units 06:20 16:41 21:03 PT (9.0-12.0) sec INR (<1.2) POC Glucose (mg/dL) 163 H 146 H (75-99) mg/dL Hemoglobin A1c 6.1 H (4.0-6.0) % 05/29/18 05/29/18 05/29/18 Range/Units 05:32 06:25 11:20 PT 25.7 H (9.0-12.0) sec INR 2.7 H (<1.2) POC Glucose (mg/dL) 160 H 158 H (75-99) mg/dL Hemoglobin A1c (4.0-6.0) % Assessment and Plan Plan: ASSESSMENT and plan #1 chronic persistent atrial fibrillation, rate under better control #2 Supratherapeutic INR, on admission, we will check to see if the patient has coverage for Eliquis, if so we will initiate Eliquis 5 mg one tablet by mouth twice a day #3 Hypertension #4 Dyslipidemia Plan Cardiology's perspective, if the patient has coverage we will start him on Eliquis 5 mg one tablet by mouth twice a day 10 you the heparin. Continue the rest of the patient's medication, heart rate today is under much better control. DNP note has been reviewed, I agree with a documented findings and plan of care. Patient was seen and examined.
[2018-05-29] MEDS ORDERED: OSELTAMIVIR 75 MG CAP PO STA (15:07)
--- NOTE | 2018-05-29 15:09 | P.PN ---
Subjective Progress Note Date: 05/29/18 78-year-old male patient was Hospital as for an acute COPD exacerbation that followed a symptoms of URI and bronchitis. The patient has been hostile for the past 2 days. Feeling much better. He is feeling that he is back to his baseline. Cough has subsided. No significant shortness of breath on today's evaluation. He is typically on Symbicort as maintenance and he uses S cane had an as-needed basis. He has a nebulizer at home however he has not been using it at all. No chest pain. No angina. He will be switched from Coumadin to Eliquis regarding his atrial fibrillation. He has history of hypertension and hyperlipidemia. Objective - Vital Signs Vital signs: Vital Signs Temp 97.1 F L 05/29/18 08:25 Pulse 68 05/29/18 12:22 Resp 16 05/29/18 11:20 BP 117/78 05/29/18 11:20 Pulse Ox 94 L 05/29/18 11:20 Intake & Output 05/28/18 05/29/18 05/29/18 18:59 06:59 18:59 Intake Total 1256 480 582 Balance 1256 480 582 Weight 119.7 kg Intake: Intake, IV Titration 600 Amount Sodium Chloride 0.9% 1, 600 000 ml @ 100 mls/hr IV . Q10H STA Rx#:[id number] Oral [phone] Other: # Voids 2 2 1 - Exam The patient appeared well nourished and normally developed. Vital signs as documented. Head exam is unremarkable. No scleral icterus or corneal arcus noted. Neck is without jugular venous distension, thyromegaly, or carotid bruits. Carotid upstrokes are brisk bilaterally. Lungs are clear to auscultation and percussion. Breath sounds are diminished bilaterally. No signs of an acute bronchospasm or wheezing on today's evaluation. Overall lung exam is improved considerably. Cardiac exam reveals the PMI to be normally sized and situated. Rhythm is irregular. First and second heart sounds normal. No murmurs, rubs or gallops. Abdominal exam reveals normal bowel sounds, no masses, no organomegaly and no aortic enlargement. Extremities are nonedematous and both femoral and pedal pulses are normal.Examination of the skin revealed no evidence of significant rashes, suspicious appearing nevi or other concerning lesions. Neurologically the patient is awake and alert and there is no focal neurological deficit - Labs CBC & Chem 7: 05/27/18 14:22 05/27/18 14:22 Labs: Abnormal Lab Results - Last 24 Hours (Table) 05/28/18 05/28/18 05/28/18 Range/Units 06:20 16:41 21:03 PT (9.0-12.0) sec INR (<1.2) POC Glucose (mg/dL) 163 H 146 H (75-99) mg/dL Hemoglobin A1c 6.1 H (4.0-6.0) % Influenza Type A RNA (Not Detectd) 05/29/18 05/29/18 05/29/18 Range/Units 05:32 06:25 11:20 PT 25.7 H (9.0-12.0) sec INR 2.7 H (<1.2) POC Glucose (mg/dL) 160 H 158 H (75-99) mg/dL Hemoglobin A1c (4.0-6.0) % Influenza Type A RNA (Not Detectd) 05/29/18 Range/Units 14:00 PT (9.0-12.0) sec INR (<1.2) POC Glucose (mg/dL) (75-99) mg/dL Hemoglobin A1c (4.0-6.0) % Influenza Type A RNA Detected H (Not Detectd) Assessment and Plan Plan: Assessment 1 exacerbation of a chronic COPD/asthma secondary to bronchitis/URI. Patient is recovered 2 history of atrial fibrillation 3 obesity with a BMI of 37.9 4 hypertension 5 hyperlipidemia 6 degenerative arthritis Plan The patient can discharge home on a prednisone burst taper. He'll be given Symbicort as maintenance and Ventolin HFA when necessary. He'll be given albuterol when necessary via his nebulizer.. At evaluation will be switched from warfarin to Eliquis. He will see me back in the office in a few weeks time in follow-up. He is clear for discharge from the pulmonary standpoint.
[2018-05-29] MEDS ORDERED: WARFARIN 2.5 MG TAB PO SCH (18:00)
[2018-05-29] MEDS ORDERED: APIXABAN 5 MG TAB PO SCH (21:00)
--- NOTE | 2018-05-30 06:17 | DS ---
DISCHARGE SUMMARY DATE OF ADMISSION: 05/27/2018 DATE OF DISCHARGE: 05/29/2018 FINAL DIAGNOSES: 1. Acute moderate asthma exacerbation secondary to acute influenza A. 2. Persistent atrial fibrillation, rate uncontrolled on presentation. 3. Hyperlipidemia. 4. Essential hypertension. 5. Obesity, body mass index 38. HOSPITAL COURSE: This patient presented with not feeling well, congested, short of breath. Found to have asthma exacerbation. The patient's was also sick earlier. Patient did come back positive for influenza A. The patient did respond well to bronchodilators, steroids. Doing much better on the day of discharge. Heart rate was initially controlled, did come down. PHYSICAL EXAMINATION: On examination, afebrile, pulse 95, respiration 18, blood pressure 128/85, pulse ox 93% on room air. LUNGS: Improved air entry. CARDIOVASCULAR: Heart sounds irregular. LABS: Influenza A positive. INR 2.7. CONSULTATION: Dr. Alvarez and colleagues from Pulmonary; Dr. Stefani Viera from Cardiology. The patient was cleared by the consultants to go home today. Care was discussed at length with the patient's . Questions were answered. Discussion and discharge planning more than 35 minutes. DISCHARGE MEDICATIONS: 1. Aspirin 81 mg a day. 2. Symbicort 160/4.5 two puffs b.i.d. 3. Cozaar 25 mg daily. 4. Lopressor 75 mg b.i.d. 5. Multivitamin 1 tablet p.o. daily. 6. Flonase 2 sprays each nostril daily. 7. Lopressor 50 mg b.i.d. 8. Pravachol 80 mg p.o. daily. 9. Eliquis 5 mg b.i.d. 10.DuoNeb q.i.d. p.r.n. 11.Tamiflu 75 mg q.12, ten capsules. 12.Prednisone taper. Follow up with Dr. Burgess on 06/23/2018. Follow up with Dr. Stuart on 06/01/2018. Follow up with Dr. Sauceda on 06/28/2018. MMFABL / DEJANN: [id number] /
[2018-05-30] MEDS ORDERED: WARFARIN 5 MG TAB PO SCH (18:00)
== END 2018-05-29 16:50 | disposition home or self-care (01) | DRG 194 ==
LOC: EC 13:32 → 3NMEDONC 17:14 → 3SCARD 20:00
PROVIDERS: ADMIT Hospitalist; ATTEND Hospitalist
DX: J10.1 Influenza due to other identified influenza virus with other respiratory manifestations (principal); J45.901 Unspecified asthma with (acute) exacerbation; I48.1 Persistent atrial fibrillation; J44.0 Chronic obstructive pulmonary disease with (acute) lower respiratory infection; J44.1 Chronic obstructive pulmonary disease with (acute) exacerbation; E55.9 Vitamin D deficiency, unspecified; E66.9 Obesity, unspecified; E78.5 Hyperlipidemia, unspecified; I10 Essential (primary) hypertension; I45.10 Unspecified right bundle-branch block; I48.2 Chronic atrial fibrillation; J20.9 Acute bronchitis, unspecified; M19.90 Unspecified osteoarthritis, unspecified site; R79.1 Abnormal coagulation profile; Z68.38 Body mass index [BMI] 38.0-38.9, adult; Z79.01 Long term (current) use of anticoagulants; Z79.51 Long term (current) use of inhaled steroids; Z79.82 Long term (current) use of aspirin; Z79.899 Other long term (current) drug therapy; Z80.0 Family history of malignant neoplasm of digestive organs; Z82.49 Family history of ischemic heart disease and other diseases of the circulatory system; Z87.891 Personal history of nicotine dependence; Z96.651 Presence of right artificial knee joint; Z98.49 Cataract extraction status, unspecified eye; T45.515A Adverse effect of anticoagulants, initial encounter; Z98.1 Arthrodesis status; Z87.01 Personal history of pneumonia (recurrent)
CPT/HCPCS: 36415; 71046; 80053; 82550; 82553; 83036; 83735; 83880; 84484; 85025; 85610; 85730; 87502; 93005; 94640; 94760; 96361; 96374; 99291

== ENCOUNTER → 2021-11-09 | Outpatient (CLI) | payer MEDICARE ==
--- NOTE | 2021-11-09 16:30 | MR ---
EXAMINATION TYPE: MR cervical spine wo/w con DATE OF EXAM: 11/09/2021 COMPARISON: HISTORY: Cervicalgia, pain x 50 years CONTRAST: Performed utilizing 12 mL intravenous Gadavist gadolinium contrast. TECHNIQUE: Multiplanar multiecho imaging on a 3.0 Dary magnet is performed through the cervical spin e. FINDINGS: The craniovertebral junction is normal. Vertebral body alignment has some scoliosis. Dif fuse loss of disc height throughout the cervical spine. C7-T1: No focal disc herniation or significant disc bulge is evident. No spinal canal stenosis or n eural foraminal stenosis is present. C6-7: Endplate spurring and central anterior thecal sac compression. No cord contact is evident. No s trung canal stenosis is present. Moderate bilateral foraminal narrowing is from 100 feet.. C5-6: There is loss of disc height is level. Uncovertebral joint producing severe bilateral foraminal stenosis. No apices spinal canal stenosis present. Small amount of central spurring is present. No c ord contact is evident.. C4-5: Loss of disc height is present at this level. Endplate spurring is moderate intrahepatic sac co mpression is uncertain) spinal cord. Moderate right and severe left foraminal stenosis is. C3-4: Disc space narrowing is present. Endplate spurring is greater to the right paracentral region a nd close approximation of the spinal cord. Some cord flattening may be present. Subtle signal change posterior to the C4 level may be within the spinal cord. C2-3: Central broad-based disc bulge is present with anterior thecal sac compression. Left foramen is patent. Right foramen narrowing.. No abnormal enhancement is present following contrast administration. IMPRESSIONS: 1. Multilevel degenerative disc changes with endplate spurring greatest at C3-4 in the right paracent ral region.. Some cord signal abnormality without loss of volume is present. No syrinx is present. No enhancement is evident.
== END | disposition home or self-care (01) ==
LOC: RADMRIMAIN 12:27
PROVIDERS: ATTEND Family Medicine
DX: M54.2 Cervicalgia (principal)
CPT/HCPCS: 72156; A9585

== ENCOUNTER → 2024-03-29 | Outpatient (CLI) | payer MEDICARE ==
--- NOTE | 2024-03-29 11:41 | XR ---
EXAMINATION TYPE: XR chest 2V DATE OF EXAM: 03/29/2024 10:27 AM COMPARISON: None CLINICAL INDICATION: Male, 84 years old with history of R05.9 Cough; [facility] TECHNIQUE: XR chest 2V Frontal and lateral views of the chest. FINDINGS: Lungs/Pleura: Blunting of the right costophrenic angle. There is no evidence of pleural effusion, foc al consolidation, or pneumothorax. Pulmonary vascularity: Unremarkable. Heart/mediastinum: Cardiomediastinal silhouette is enlarged and stable. Atherosclerotic calcificatio ns are seen in the aorta. Musculoskeletal: No acute osseous pathology. IMPRESSION: Right pleural effusion. No evidence for airspace disease. [facility], , 03/29/2024 11:38 AM
== END | disposition home or self-care (01) ==
LOC: RADXRMAIN 09:51
PROVIDERS: ATTEND Internal Medicine
DX: J90 Pleural effusion, not elsewhere classified (principal); I70.0 Atherosclerosis of aorta
CPT/HCPCS: 71046

== ENCOUNTER 2024-07-27 11:44 | Inpatient (IN) | payer MEDICARE ==
--- NOTE | 2024-07-27 11:49 | ED ---
SOB HPI - General Source: patient, RN notes reviewed Mode of arrival: wheelchair Limitations: no limitations <Bridgett Coleman - Last Filed: 07/27/24 11:48> - General Source: patient, family, RN notes reviewed Mode of arrival: wheelchair Limitations: no limitations <Jairo Peñaloza - Last Filed: 07/27/24 15:11> - General Stated Complaint: ELIUD Time Seen by Provider: 07/27/24 11:48 - History of Present Illness Initial Comments: Quick note:84 year old male presented to the ER for evaluation of shortness of breath. Patient states he was admitted at [facility] last week and had 1.5 L of fluid drained off of his right lung. He states that shortness of breath and returned and he believes he has more fluid on his lungs. No fevers. No home O2 use. (Bridgett Coleman) Patient is a 84-year-old male presenting to the emergency department with concerns with difficulty breathing. Onset of symptoms was 4 days ago. Patient does have occasional cough. No fever. Patient does have history of asthma/C OPD. No leg pain or leg swelling. Patient does have history of what sounds to be pleural effusions and has needed thoracentesis twice, last was just a couple of weeks ago where they drained a liter and a half off. Patient does have history of renal cancer and brain metastasis however no active cancer known at this time. (Jairo Peñaloza) - Related Data Home Medications Medication Instructions Recorded Confirmed Aspirin 81 mg PO DAILY 11/26/15 05/27/18 Budesonide/Formoterol Fumarate 2 puff INHALATION RT-BID 11/26/15 05/27/18 [Symbicort 160-4.5 Mcg Inhaler] Cholecalciferol [Vitamin D3 (25 1,000 unit PO DAILY 11/26/15 05/27/18 Mcg = 1000 Iu)] Cinnamon Bark [Cinnamon] 500 mg PO BID 11/26/15 05/27/18 Losartan [Cozaar] 25 mg PO DAILY 11/26/15 05/27/18 Metoprolol Tartrate [Lopressor] 75 mg PO BID 11/26/15 05/27/18 Multivitamins, Thera [Multivitamin 1 tab PO DAILY 11/26/15 05/27/18 (formulary)] Fluticasone Nasal [place] [Flonase 2 spr EA NOSTRIL DAILY 05/27/18 05/27/18 Nasal [place]] Metoprolol Tartrate [Lopressor] 50 mg PO DAILY@1700 05/27/18 05/27/18 Pravastatin Sodium [Pravachol] 80 mg PO DAILY 05/27/18 05/27/18 Previous Rx's Medication Instructions Recorded Apixaban [Eliquis] 5 mg PO BID #60 tab 05/29/18 Ipratropium-Albuterol Nebulize 3 ml INHALATION QID PRN 30 Days #1 05/29/18 [Duoneb 0.5 mg-3 mg/3 ml Soln] box Oseltamivir [Tamiflu] 75 mg PO Q12HR #10 cap 05/29/18 predniSONE 10 mg PO DAILY #30 tab 05/29/18 Allergies Allergy/AdvReac Type Severity Reaction Status Date / Time acetaminophen [From [place]] Allergy Rash/Hives Verified 07/27/24 11:49 empagliflozin Allergy Rash/Hives Verified 07/27/24 11:49 [From [place]] hydrocodone [From [place]] Allergy Rash/Hives Verified 07/27/24 11:49 Review of Systems ROS Other: All systems not noted in ROS Statement are negative. <Bridgett Coleman - Last Filed: 07/27/24 11:48> ROS Other: All systems not noted in ROS Statement are negative. Constitutional: Denies: fever Eyes: Denies: eye pain ENT: Denies: ear pain Respiratory: Reports: as per HPI, cough, dyspnea Cardiovascular: Denies: chest pain, edema <Jairo Peñaloza - Last Filed: 07/27/24 15:11> ROS Statement: Those systems with pertinent positive or pertinent negative responses have been documented in the HPI. Past Medical History Past Medical History: Atrial Fibrillation, Asthma, Hyperlipidemia, Hypertension History of Any Multi-Drug Resistant Organisms: None Reported Past Surgical History: Heart Catheterization Additional Past Surgical History / Comment(s): EXC CATARACTS. CERVICAL FUSION. TOTAL SUNITHA HIPS. UMB HERNIA. RT SCOPE X2. 7-26-16 TOTAL RT KNEE Past Anesthesia/Blood Transfusion Reactions: No Reported Reaction Past Psychological History: No Psychological Hx Reported Past Alcohol Use History: Occasional Additional Past Alcohol Use History / Comment(s): SMOKED 17 YEARS EST, 1 PPD, QUIT 1988 EST. ALCOHOL ADMITS TO 2 SHOT OF ALCOHOL A DAY. Past Drug Use History: None Reported - Past Family History Mother Additional Family Medical History / Comment(s): LIVER/COLON CANCER Father Family Medical History: Myocardial Infarction ([place]) Additional Family Medical History / Comment(s): CABG. AGE 83 <Bridgett Coleman - Last Filed: 07/27/24 11:48> General Exam <Bridgett Coleman - Last Filed: 07/27/24 11:48> Limitations: no limitations General appearance: alert, in no apparent distress Head exam: Present: normocephalic Eye exam: Present: normal appearance Neck exam: Present: normal inspection Respiratory exam: Present: wheezes, rales, decreased breath sounds Cardiovascular Exam: Present: regular rate, normal rhythm GI/Abdominal exam: Present: soft. Absent: tenderness Extremities exam: Present: normal inspection. Absent: pedal edema, calf tenderness Neurological exam: Present: alert Psychiatric exam: Present: normal affect, normal mood Skin exam: Present: normal color <Jairo Peñaloza - Last Filed: 07/27/24 15:11> - General Exam Comments Initial Comments: Visual Physical Exam Vital signs reviewed General: Well-appearing, nontoxic, no acute distress. Head: Normocephalic, atraumatic Eyes: PERRLA, EOMI ENT: Airway patent Chest: Nonlabored breathing Skin: No visual rash, normal skin tone Neuro: Alert and oriented 3 Musculoskeletal: No gross abnormalities (Bridgett Coleman) Course Vital Signs 07/27/24 07/27/24 07/27/24 11:46 12:48 13:00 Temperature 98 F Pulse Rate 90 56 L 60 Respiratory 22 16 20 Rate Blood Pressure 155/77 131/61 130/60 O2 Sat by Pulse 100 93 L 95 Oximetry 07/27/24 07/27/24 07/27/24 13:05 13:11 13:18 Temperature Pulse Rate 68 77 Respiratory 16 Rate Blood Pressure O2 Sat by Pulse Oximetry Medical Decision Making <Bridgett Coleman - Last Filed: 07/27/24 11:48> - Lab Data Result diagrams: 07/27/24 11:50 07/27/24 11:50 <Jairo Peñaloza - Last Filed: 07/27/24 15:11> - Medical Decision Making I performed the quick note portion of this chart. Electronically signed by Bridgett Coleman PA-C (Bridgett Coleman) EKG interpreted by myself shows A-fib with a rate of 60. Indeterminate axis. Q waves V1 through V4 with borderline ST change V3 V4. Was pt. sent in by a medical professional or institution ([facility] Bird, [employer], urgent care, hospital, or retirement...) When possible be specific @ -No Did you speak to anyone other than the patient for history (EMS, parent, family, police, friend...)? What history was obtained from this source @ - is present helps provide history including history of recent thoracentesis Did you review nursing and triage notes (agree or disagree)? Why? @ -I reviewed and agree with nursing and triage notes Were old charts reviewed (outside hosp., previous admission, EMS record, old EKG, old radiological studies, urgent care reports/EKG's, retirement records)? Report findings @ -No old charts were reviewed Differential Diagnosis (chest pain, altered mental status, abdominal pain women, abdominal pain men, vaginal bleeding, weakness, fever, dyspnea, syncope, headache, dizziness, GI bleed, back pain, seizure, CVA, palpatations, mental health, musculoskeletal)? @ -Differential Dyspnea: Coronary syndrome, arrhythmia, tamponade, asthma, COPD, pulmonary embolism, pneumonia, pneumothorax, pulmonary effusion, anaphylaxis, diabetic ketoacidosis, flailed chest, pulmonary contusion, diaphragmatic rupture, anemia, neuromuscular, this is not meant to be an all-inclusive list. EKG interpreted by me (3pts min.). @ -As above X-rays interpreted by me (1pt min.). @ -Chest x-ray shows small to moderate-sized right-sided effusion. CT interpreted by me (1pt min.). @ -None done U/S interpreted by me (1pt. min.). @ -None done What testing was considered but not performed or refused? (CT, X-rays, U/S, labs)? Why? @ -None What meds were considered but not given or refused? Why? @ -None Did you discuss the management of the patient with other professionals (professionals i.e. MONTRELL Bird, [employer], lab, RT, psych nurse, social welfare clerk, audio video repairer, teacher, horticultural technical officer, case management social worker)? Give summary @ -Case discussed with Dr. Martino who will admit his patient Was smoking cessation discussed for >3mins.? @ -No Was critical care preformed (if so, how long)? @ -No Were there social determinants of health that impacted care today? How? (Homelessness, low income, unemployed, alcoholism, drug addiction, transportat ion, low edu. Level, literacy, decrease access to med. care, half-way, rehab)? @ -No Was there de-escalation of care discussed even if they declined (Discuss DNR or withdrawal of care, Hospice)? DNR status @ -No What co-morbidities impacted this encounter? (DM, HTN, Smoking, COPD, CAD, Cancer, CVA, ARF, Chemo, Hep., AIDS, mental health diagnosis, sleep apnea, morbid obesity)? @ -History of previous pleural effusions. History of COPD/asthma Was patient admitted / discharged? Hospital course, mention meds given and route, prescriptions, significant lab abnormalities, going to OR and other pertinent info. @ -Patient presents with recurrent dyspnea. Patient does have effusion on the right side. Patient has some improvement with nebulizer treatment. Patient will be admitted with pulmonary consult, patient previously has seen Dr. Garcia. Admission orders written. Patient and family were updated. Undiagnosed new problem with uncertain prognosis? @ -No Drug Therapy requiring intensive monitoring for toxicity (Heparin, Nitro, Insulin, Cardizem)? @ -No Were any procedures done? @ -No Diagnosis/symptom? @ -Pleural effusion, COPD Acute, or Chronic, or Acute on Chronic? @ -Acute on chronic, acute on chronic Uncomplicated (without systemic symptoms) or Complicated (systemic symptoms)? @ -Default Side effects of treatment? @ -No Exacerbation, Progression, or Severe Exacerbation? @ -Exacerbation of COPD Poses a threat to life or bodily function? How? (Chest pain, [place], [place], pneumonia, PE, COPD, DKA, ARF, appy, cholecystitis, CVA, Diverticulitis, Homicidal, Suicidal, threat to staff... and all critical care pts) @ -Threat to pulmonary function (Jairo Peñaloza) - Lab Data Lab Results 07/27/24 07/27/24 07/27/24 Range/Units 11:50 11:50 11:50 WBC 8.4 (3.8-10.6) k/uL RBC 4.40 (4.30-5.90) m/uL Hgb 12.2 L (13.0-17.5) gm/dL Hct 38.5 L (39.0-53.0) % MCV 87.6 (80.0-100.0) fL MCH 27.8 (25.0-35.0) pg MCHC 31.7 (31.0-37.0) g/dL RDW 16.5 H (11.5-15.5) % Plt Count 247 (150-450) k/uL MPV 7.1 Neutrophils % 73 % Lymphocytes % 14 % Monocytes % 4 % Eosinophils % 8 % Basophils % 0 % Neutrophils # 6.1 (1.3-7.7) k/uL Lymphocytes # 1.2 (1.0-4.8) k/uL Monocytes # 0.4 (0-1.0) k/uL Eosinophils # 0.7 (0-0.7) k/uL Basophils # 0.0 (0-0.2) k/uL Anisocytosis Slight PT (10.0-12.5) sec INR (<1.2) APTT (22.0-30.0) sec Sodium 133 L (137-145) mmol/L Potassium 4.7 (3.5-5.1) mmol/L Chloride 96 L (98-107) mmol/L Carbon Dioxide 30 (22-30) mmol/L Anion Gap 7 mmol/L BUN 24 H (9-20) mg/dL Creatinine 1.24 (0.66-1.25) mg/dL Est GFR (CKD-EPI)AfAm 63 (>60 ml/min/1.73 sqM) Est GFR (CKD-EPI)NonAf 54 (>60 ml/min/1.73 sqM) Glucose 112 H (74-99) mg/dL Plasma Lactic Acid Omid (0.7-2.0) mmol/L Calcium 8.8 (8.4-10.2) mg/dL Magnesium (1.6-2.3) mg/dL Total Bilirubin 0.7 (0.2-1.3) mg/dL AST 25 (17-59) U/L ALT 18 (4-49) U/L Alkaline Phosphatase 94 (38-126) U/L Troponin I (0.000-0.034) ng/mL NT-Pro-B Natriuret Pep pg/mL Total Protein 6.4 (6.3-8.2) g/dL Albumin 3.9 (3.5-5.0) g/dL Influenza Type A (PCR) Not Detected (Not Detectd) Influenza Type B (PCR) Not Detected (Not Detectd) RSV (PCR) Not Detected (Not Detectd) SARS-CoV-2 (PCR) Not Detected (Not Detectd) 07/27/24 07/27/24 07/27/24 Range/Units 12:49 12:49 12:49 WBC (3.8-10.6) k/uL RBC (4.30-5.90) m/uL Hgb (13.0-17.5) gm/dL Hct (39.0-53.0) % MCV (80.0-100.0) fL MCH (25.0-35.0) pg MCHC (31.0-37.0) g/dL RDW (11.5-15.5) % Plt Count (150-450) k/uL MPV Neutrophils % % Lymphocytes % % Monocytes % % Eosinophils % % Basophils % % Neutrophils # (1.3-7.7) k/uL Lymphocytes # (1.0-4.8) k/uL Monocytes # (0-1.0) k/uL Eosinophils # (0-0.7) k/uL Basophils # (0-0.2) k/uL Anisocytosis PT 11.6 (10.0-12.5) sec INR 1.1 (<1.2) APTT 26.6 (22.0-30.0) sec Sodium (137-145) mmol/L Potassium (3.5-5.1) mmol/L Chloride (98-107) mmol/L Carbon Dioxide (22-30) mmol/L Anion Gap mmol/L BUN (9-20) mg/dL Creatinine (0.66-1.25) mg/dL Est GFR (CKD-EPI)AfAm (>60 ml/min/1.73 sqM) Est GFR (CKD-EPI)NonAf (>60 ml/min/1.73 sqM) Glucose (74-99) mg/dL Plasma Lactic Acid Omid 0.9 (0.7-2.0) mmol/L Calcium (8.4-10.2) mg/dL Magnesium 2.1 (1.6-2.3) mg/dL Total Bilirubin (0.2-1.3) mg/dL AST (17-59) U/L ALT (4-49) U/L Alkaline Phosphatase (38-126) U/L Troponin I (0.000-0.034) ng/mL NT-Pro-B Natriuret Pep 5410 pg/mL Total Protein (6.3-8.2) g/dL Albumin (3.5-5.0) g/dL Influenza Type A (PCR) (Not Detectd) Influenza Type B (PCR) (Not Detectd) RSV (PCR) (Not Detectd) SARS-CoV-2 (PCR) (Not Detectd) 07/27/24 Range/Units 12:49 WBC (3.8-10.6) k/uL RBC (4.30-5.90) m/uL Hgb (13.0-17.5) gm/dL Hct (39.0-53.0) % MCV (80.0-100.0) fL MCH (25.0-35.0) pg MCHC (31.0-37.0) g/dL RDW (11.5-15.5) % Plt Count (150-450) k/uL MPV Neutrophils % % Lymphocytes % % Monocytes % % Eosinophils % % Basophils % % Neutrophils # (1.3-7.7) k/uL Lymphocytes # (1.0-4.8) k/uL Monocytes # (0-1.0) k/uL Eosinophils # (0-0.7) k/uL Basophils # (0-0.2) k/uL Anisocytosis PT (10.0-12.5) sec INR (<1.2) APTT (22.0-30.0) sec Sodium (137-145) mmol/L Potassium (3.5-5.1) mmol/L Chloride (98-107) mmol/L Carbon Dioxide (22-30) mmol/L Anion Gap mmol/L BUN (9-20) mg/dL Creatinine (0.66-1.25) mg/dL Est GFR (CKD-EPI)AfAm (>60 ml/min/1.73 sqM) Est GFR (CKD-EPI)NonAf (>60 ml/min/1.73 sqM) Glucose (74-99) mg/dL Plasma Lactic Acid Omid (0.7-2.0) mmol/L Calcium (8.4-10.2) mg/dL Magnesium (1.6-2.3) mg/dL Total Bilirubin (0.2-1.3) mg/dL AST (17-59) U/L ALT (4-49) U/L Alkaline Phosphatase (38-126) U/L Troponin I <0.012 (0.000-0.034) ng/mL NT-Pro-B Natriuret Pep pg/mL Total Protein (6.3-8.2) g/dL Albumin (3.5-5.0) g/dL Influenza Type A (PCR) (Not Detectd) Influenza Type B (PCR) (Not Detectd) RSV (PCR) (Not Detectd) SARS-CoV-2 (PCR) (Not Detectd) Disposition <Bridgett Coleman - Last Filed: 07/27/24 11:48> Is patient prescribed a controlled substance at d/c from ED?: No Time of Disposition: 15:11 <Jairo Peñaloza - Last Filed: 07/27/24 15:11> Clinical Impression: Acute exacerbation of chronic obstructive airways disease, Pleural effusion Disposition: ADMITTED IP TO THIS HOSP Referrals: Messi Martino MD [Primary Care Provider] - 1-2 days
[2024-07-27 12:14] LABS: Anisocytosis Slight; Basophils % (A) 0 %; Eosinophils # (A) 0.7 k/uL (0-0.7); Eosinophils % (A) 8 %; HCT 38.5 % (39.0-53.0); HGB 12.2 gm/dL (13.0-17.5); Lymphocytes # (A) 1.2 k/uL (1.0-4.8); Lymphocytes % (A) 14 %; MCH 27.8 pg (25.0-35.0); MCHC 31.7 g/dL (31.0-37.0); MCV 87.6 fL (80.0-100.0); Mean Platelet Volume 7.1; Monocytes # (A) 0.4 k/uL (0-1.0); Monocytes % (A) 4 %; Neutrophils # (A) 6.1 k/uL (1.3-7.7); Neutrophils % (A) 73 %; Platelet Count 247 k/uL (150-450); RDW 16.5 % (11.5-15.5); WBC 8.4 k/uL (3.8-10.6)
[2024-07-27 12:29] LABS: ALT 18 U/L (4-49); AST 25 U/L (17-59); African American GFR (CKD) 63 (>60 ml/min/1.73 sqM); Albumin 3.9 g/dL (3.5-5.0); Alkaline Phosphatase 94 U/L (38-126); Anion Gap 7 mmol/L; Blood Urea Nitrogen 24 mg/dL (9-20); Calcium 8.8 mg/dL (8.4-10.2); Carbon Dioxide 30 mmol/L (22-30); Chloride 96 mmol/L (98-107); Glucose 112 mg/dL (74-99); Non-African American GFR(CKD) 54 (>60 ml/min/1.73 sqM); Potassium 4.7 mmol/L (3.5-5.1); Sodium 133 mmol/L (137-145); Total Bilirubin 0.7 mg/dL (0.2-1.3); Total Protein 6.4 g/dL (6.3-8.2)
[2024-07-27 12:47] LABS: Influenza A Not Detected (Not Detectd); Influenza B Not Detected (Not Detectd); RSV Not Detected (Not Detectd)
[2024-07-27] MEDS: methylPREDNISolone SOD SUCCI 125 MG/2 ML VIAL IV STA (12:58)
[2024-07-27] MEDS: IPRATROPIUM-ALBUTEROL 3 ML NEB INHALATION STA (13:05)
[2024-07-27 13:23] LABS: INR 1.1 (<1.2); Partial Thromboplastin Time 26.6 sec (22.0-30.0); Prothrombin Time 11.6 sec (10.0-12.5)
[2024-07-27 13:29] LABS: Magnesium 2.1 mg/dL (1.6-2.3)
--- NOTE | 2024-07-27 13:58 | XR ---
EXAMINATION TYPE: XR chest 2V DATE OF EXAM: 07/27/2024 CLINICAL INDICATION: Male, 84 years old with history of sob, TECHNIQUE: Frontal and lateral views of the chest are obtained. COMPARISON: Prior chest x-ray March 29, 2024 FINDINGS: Persistent cardiomegaly. New single lead pacemaker/AICD with lead terminating in the right ventricle. Persistent atherosclerotic thoracic aorta. More prominent small to moderate sized right pl eural effusion . Patchy left basilar opacity favors atelectasis. The osseous structures remain demine ralized. IMPRESSION: Slightly more prominent small to moderate size right pleural effusion. Cardiomegaly is re demonstrated. [facility], , 07/27/2024 1:56 PM
[2024-07-27] MEDS ORDERED: IPRATROPIUM-ALBUTEROL 3 ML NEB INHALATION PRN (15:11)
[2024-07-27] MEDS ORDERED: NALOXONE 0.4 MG/ML 1 ML VIAL IVP PRN (15:11)
[2024-07-27] MEDS: FUROSEMIDE 10 MG/ML 4 ML VIAL IV STA (15:39)
[2024-07-27] MEDS ORDERED: FUROSEMIDE 20 MG TAB PO PRN (16:18)
[2024-07-27] MEDS ORDERED: ALBUTEROL NEBULIZED 2.5 MG/3 ML INHALATION PRN (16:18)
[2024-07-27] MEDS: IPRATROPIUM-ALBUTEROL 3 ML NEB INHALATION SCH (16:27)
[2024-07-27] MEDS: methylPREDNISolone SOD SUCCI 125 MG/2 ML VIAL IV SCH (18:00)
--- NOTE | 2024-07-27 19:01 | P.CNPUL ---
History of Present Illness Consult date: 07/27/24 Reason for consult: dyspnea, pleural effusion History of present illness: 85-year-old male patient, presented to the emergency department with worsening shortness of breath. The patient is known to me and he has multiple medical problems and comorbidities. More recently, the patient was diagnosed having metastatic renal cell carcinoma. He has undergone a right nephrectomy that was performed at [facility]. 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 Subsequently, the patient was admitted to [facility] for acute chest pain and the patient was diagnosed having an acute myocardial infarction he underwent cardiac catheterization and coronary stenting x 3 involving the LAD and circumflex and obtuse marginal on 01/24/2024. He was also found to have severe ischemic cardiomyopathy I last saw the patient in my office back in April 2024. At that time, his chest x-ray showed a moderate-sized right- sided pleural effusion. He was hypoxic and he was placed on oxygen 2 L/min nasal cannula. Since then, the patient was seen and [facility] the patient underwent thoracentesis of the right lung approximately a week ago and a total of 1.5 L of fluid was drained from the right lung. The fluid was nonmalignant. He shortness of breath improved and subsequently recurred. No fever. No chest pain. He came into the emergency and the patient's white cell count is at 8.4 with a hemoglobin 12.2 and a platelet count of 247. Coagulation profile is within normal limits. BUN 25 with a creatinine 1.2. Sodium levels at 133. proBNP level is 5410 and troponins are negative and the viral screen came back negative. A follow-up chest x-ray was done in the emergency and the patient was found to have a small to moderate-sized right-sided pleural effusion. Based on that a pulmonary consultation was requested. The patient is currently on room air oxygen with a pulse ox of 96%. He was hospitalized accordingly. The patient's comorbid conditions include metastatic renal cell carcinoma, coronary artery disease with previous [place] requiring coronary stenting x 3 do on 01/24/2024,CHF, AICD, history of right-sided pleural effusion, moderate persistent bronchial asthma, asbestosis, chronic A-fib, obesity and obstructive sleep apnea and the patient has not been tolerant to CPAP therapy. He is currently on Eliquis for anticoagulants. He takes antiplatelet agents with aspirin and Plavix. Review of Systems Constitutional: Reports fatigue, Reports weight gain Eyes: denies as per HPI, denies blurred vision, denies bulging eye, denies decreased vision, denies diplopia, denies discharge, denies dry eye, denies irritation, denies itching, denies pain, denies photophobia, denies loss of peripheral vision, denies loss of vision, denies tunnel vision/blind spots Ears: deny: decreased hearing, ear discharge, earache, tinnitus Ears, nose, mouth and throat: Reports as per HPI Breasts: absent: as per HPI, gynecomastia Cardiovascular: Reports decreased exercise tolerance, Reports dyspnea on exertion, Reports irregular heart beat Respiratory: Reports as per HPI, Reports dyspnea, Reports sleep apnea, Reports snoring Gastrointestinal: Reports as per HPI Genitourinary: Reports as per HPI Musculoskeletal: Reports as per HPI Musculoskeletal: absent: ankle pain, ankle stiffness, ankle swelling, as per HPI, elbow pain, elbow stiffness, elbow swelling, foot pain, foot stiffness, foot swelling, hand pain, hand stiffness, hand swelling, hip pain, hip stiffness, hip swelling, knee pain, knee stiffness, knee swelling, shoulder pain, shoulder stiffness, shoulder swelling, wrist pain, wrist stiffness, wrist swelling Integumentary: Reports as per HPI Neurological: Reports as per HPI Psychiatric: Reports as per HPI Endocrine: Reports as per HPI Hematologic/Lymphatic: Reports as per HPI Allergic/Immunologic: Reports as per HPI Past Medical History Past Medical History: Atrial Fibrillation, Asthma, Coronary Artery Disease (CAD) (Previous history of myocardial infarction and coronary stenting x 3), Cancer (Renal cell carcinoma, metastatic), Hyperlipidemia, Hypertension, Sleep Apnea/CPAP/BIPAP History of Any Multi-Drug Resistant Organisms: None Reported Past Surgical History: Heart Catheterization Additional Past Surgical History / Comment(s): EXC CATARACTS. CERVICAL FUSION. TOTAL SUNITHA HIPS. UMB HERNIA. RT SCOPE X2. 7-26-16 TOTAL RT KNEE Past Anesthesia/Blood Transfusion Reactions: No Reported Reaction Past Psychological History: No Psychological Hx Reported Past Alcohol Use History: Occasional Additional Past Alcohol Use History / Comment(s): SMOKED 17 YEARS EST, 1 PPD, QUIT 1988 EST. ALCOHOL ADMITS TO 2 SHOT OF ALCOHOL A DAY. Past Drug Use History: None Reported - Past Family History Mother Additional Family Medical History / Comment(s): LIVER/COLON CANCER Father Family Medical History: Myocardial Infarction (HI) Additional Family Medical History / Comment(s): CABG. AGE 83 Medications and Allergies Home Medications Medication Instructions Recorded Confirmed Type Cholecalciferol [Vitamin D3 (25 25 mcg PO DAILY 11/26/15 07/27/24 History Mcg = 1000 Iu)] Cinnamon Bark [Cinnamon] 500 mg PO DAILY 11/26/15 07/27/24 History Losartan [Cozaar] 12.5 mg PO HS 11/26/15 07/27/24 History Pravastatin Sodium [Pravachol] 80 mg PO HS 05/27/18 07/27/24 History Apixaban [Eliquis] 5 mg PO BID #60 tab 05/29/18 07/27/24 Rx Albuterol Inhaler [Ventolin Hfa 2 puff INHALATION RT-Q4H PRN 07/27/24 07/27/24 History Inhaler] Clopidogrel [Plavix] 75 mg PO DAILY 07/27/24 07/27/24 History Digoxin [Digitek] 125 mcg PO Q2D 07/27/24 07/27/24 History Fluticasone Propion/Salmeterol 2 puff INHALATION RT-BID 07/27/24 07/27/24 History [Advair Hfa 45-21 Mcg Inhaler] Furosemide [Lasix] 20 mg PO DAILY PRN 07/27/24 07/27/24 History Levothyroxine Sodium [Synthroid] 25 mcg PO AC-BRKFST 07/27/24 07/27/24 History Metoprolol Succinate [Toprol XL] 50 mg PO BID 07/27/24 07/27/24 History Allergies Allergy/AdvReac Type Severity Reaction Status Date / Time empagliflozin Allergy Rash/Hives Verified 07/27/24 15:27 [From Jardiance] acetaminophen [From Hanna] AdvReac Nausea & Verified 07/27/24 15:27 Vomiting hydrocodone [From Hanna] AdvReac Nausea & Verified 07/27/24 15:27 Vomiting Physical Exam Vitals: Vital Signs Temp Pulse Resp BP Pulse Ox 07/27/24 18:00 86 16 130/70 94 L 07/27/24 16:50 76 16 120/74 96 07/27/24 16:39 82 07/27/24 16:27 80 07/27/24 16:00 60 16 103/60 98 07/27/24 14:00 64 16 134/61 98 07/27/24 13:18 77 07/27/24 13:11 16 07/27/24 13:05 68 07/27/24 13:00 60 20 130/60 95 07/27/24 12:48 56 L 16 131/61 93 L 07/27/24 11:46 98 F 90 22 155/77 100 Intake and Output 07/27/24 07/27/24 07/27/24 06:59 14:59 22:59 Other: Weight 95.254 kg The patient appeared well nourished and normally developed. Vital signs as documented. Patient is a body mass index of 30 Head exam is unremarkable. No scleral icterus or corneal arcus noted. Neck is without jugular venous distension, thyromegaly, or carotid bruits. Carotid upstrokes are brisk bilaterally. Lungs are clear to auscultation and percussion. There is diminished breath sound right lung base along with dullness to percussion Cardiac exam reveals the PMI to be normally sized and situated. Irregular consistent with atrial fibrillation with a controlled rate. First and second heart sounds normal. No murmurs, rubs or gallops. Abdominal exam reveals normal bowel sounds, no masses, no organomegaly and no aortic enlargement. Extremities are nonedematous and both femoral and pedal pulses are normal. Examination of the skin revealed no evidence of significant rashes, suspicious appearing nevi or other concerning lesions. Neurologically, the patient is awake and alert and the patient does not have any focal neurological deficit. Cranial nerves are essentially intact. Results - Laboratory Findings CBC and BMP: 07/27/24 11:50 07/27/24 11:50 PT/INR, D-dimer PT 11.6 sec (10.0-12.5) 07/27/24 12:49 INR 1.1 (<1.2) 07/27/24 12:49 Abnormal lab findings: Abnormal Labs 07/27/24 07/27/24 11:50 11:50 Hgb 12.2 L Hct 38.5 L RDW 16.5 H Sodium 133 L Chloride 96 L BUN 24 H Glucose 112 H - Diagnostic Findings Chest x-ray: image reviewed Assessment and Plan Plan: Acute on chronic shortness of breath, multifactorial. The patient is known to have CHF/ischemic cardiomyopathy and the patient has developed a right-sided pleural effusion. This was noted few months back and the patient has undergone recent thoracentesis at [facility] with removal of 1.5 L of pleural fluid. The fluid was nonmalignant, The analysis is not available. Chest x-ray shows a small to moderate-sized right-sided pleural effusion. proBNP is also elevated. metastatic renal cell carcinoma. This patient was diagnosed having renal cell carcinoma right-sided and the patient underwent a right nephrectomy. Noted the patient had encountered headaches and further workup showed that the patient had a brain lesion for which he underwent a craniotomy and the headaches have subsided. He is being treated through [facility] by the oncology, neurosurgery and urology teams. coronary arteriosclerosis. The patient is post [place] and he had cath and stenting [place] x 3 , [facility], 01/24/24, and the patient had stenting of LAD, Cx and OM and he has an AICD systolic heart failure, ayatolic heart failure, post AICD moderate persistent asthma, The patient is well controlled on a combination of Symbicort and Singulair. He is stable for now and he has no new complaints. His postnasal drainage is nonallergic in nature. chronic rhinitis,nonallergic in nature asbestosis atrial fibrillation, chronic osteoarthritis obesity obstructive sleep apnea syndrome, OREN with an AHI of 44 and severe nocturnal oxygen desaturation. He ass declining CPAP therapy and he was encouraged to loose weight. He totally understand the ill effect of OREN on asthma, cardiac disease and atrial fibrillation. He meanwhile had significant weight loss as the patient receiving therapy for renal cancer Plan Patient is currently on room air oxygen Patient is complaining of exertional dyspnea and even dyspnea at rest Reviewed the chest x-ray the pleural effusion is small to moderate in size I am going to keep anticoagulation on hold and the patient will be taken off the Eliquis for now Will obtain a noncontrast CAT scan of the chest to evaluate the right-sided pleural effusion and the mediastinum to rule out any metastatic disease Will start the patient on diuretics with IV Lasix 20 mg every 12 hours Will consider thoracentesis if there is no improvement within the next 24 hours. Will review all of the records from [facility] and [facility].
--- NOTE | 2024-07-27 19:52 | CT ---
EXAMINATION TYPE: CT chest wo con DATE OF EXAM: 07/27/2024 7:31 PM COMPARISON: Plain film same day CLINICAL INDICATION: Male, 84 years old with history of pleural effusion, rule out mets; PHH, Pleural effusion, rule out mets. TECHNIQUE: Multiple axial images were obtained through the chest. Sagittal and coronal reformats were created for review. MIP was performed on a separate workstation. Contrast used: mL of (None if empty) Oral contrast used: (None if empty) CT DLP: 549.3 mGycm, Automated exposure control for dose reduction was used. FINDINGS: LUNGS/ PLEURA: No focal consolidation, pneumothorax. There is a small to moderate right pleural effus ion. No pulmonary nodules or thickened pleura identified on the right. Few intrafissural lymph node a long the left major fissure. Ground glass opacity in the superior segment of the left lower lobe on t he periphery series 204 image 86. AIRWAY: Patent and unremarkable. HEART: Cardiomegaly is demonstrated. Severe coronary artery calcifications present. MEDIASTINUM: Prominent mediastinal lymph nodes pretracheal measuring up to 8 mm prevascular measuring up to 8 mm VASCULATURE: No aortic aneurysm. MUSCULOSKELETAL: Moderate disc degeneration changes are present throughout the thoracolumbar spine se condary to osteophyte formation and facet joint arthropathy. SOFT TISSUES/LYMPH NODES: Unremarkable. Scattered Schmorl's nodes are seen throughout the spine with surrounding sclerosis. LOWER NECK: No significant findings. UPPER ABDOMEN: No significant findings. IMPRESSION: 1. Right small to moderate pleural effusion without definitive nodularity to the pleura to suggest m alignant effusion. Few prominent nonenlarged by CT criteria lymph nodes in the mediastinum. Consider PET/CT for further evaluation. 2. Groundglass opacity in the superior segment of the left lower lobe medially. Correlate for pneumo danie. 3. Cardiomegaly. 4. Moderate to severe coronary artery atherosclerosis. 5. Moderate Aortic valve calcifications. [facility], , 07/27/2024 7:49 PM
[2024-07-27] MEDS: SYMBICORT 80-4.5 MCG INHALER INHALATION SCH (20:06)
[2024-07-27] MEDS: METOPROLOL SUCCINATE (ER) 50 MG TAB.ER.24H PO SCH (22:31)
[2024-07-27] MEDS: LOSARTAN 25 MG TAB PO SCH (22:31)
[2024-07-27] MEDS: PRAVASTATIN SODIUM 80 MG TAB PO SCH (22:31)
[2024-07-27] MEDS: FUROSEMIDE 10 MG/ML 2 ML VIAL IV SCH (22:31)
[2024-07-28] MEDS: LEVOTHYROXINE 25 MCG TAB PO SCH (06:05)
[2024-07-28] MEDS ORDERED: NON FORMULARY DRUG (Cinnamon Bark [Cinnamon] 500 MG Capsule) PO SCH (09:00)
[2024-07-28] MEDS: CHOLECALCIFEROL 25 MCG (1000 IU) TABLET PO SCH (09:09)
[2024-07-28] MEDS: CLOPIDOGREL 75 MG TAB PO SCH (09:09)
[2024-07-28 09:25] LABS: Basophils # (A) 0.01 X 10*3/uL (0.00-0.10); Basophils % (A) 0.1 %; Eosinophils # (A) 0 X 10*3/uL (0.04-0.35); Eosinophils % (A) 0 %; HCT 37.3 % (39.6-50.0); HGB 12.3 g/dL (13.0-17.0); Lymphocytes # (A) 0.53 X 10*3/uL (0.90-5.00); Lymphocytes % (A) 6.6 %; MCH 28.1 pg (27.0-32.0); MCV 85.4 FL (80.0-97.0); Mean Platelet Volume 9.2 FL (9.5-12.2); Monocytes # (A) 0.04 X 10*3/uL (0.20-1.00); Monocytes % (A) 0.5 %; NRBC Per 100 WBC 0 X 10*3/uL (0.00-0.01); Neutrophils # (A) 7.42 X 10*3/uL (1.80-7.70); Neutrophils % (A) 92.6 %; Platelet Count 223 X 10*3/uL (140-440); RBC 4.37 X 10*6/uL (4.40-5.60); RDW 15.9 % (11.5-14.5); WBC 8.02 X 10*3/uL (4.50-10.00)
[2024-07-28 09:28] LABS: ALT 17 U/L (10-49); AST 22 U/L (14-35); Albumin 4.1 g/dL (3.8-4.9); Albumin/Globulin Ratio 1.95 Ratio (1.60-3.17); Alkaline Phosphatase 91 U/L (41-126); BUN/Creat Ratio 20.08 Ratio (12.00-20.00); Blood Urea Nitrogen 26.1 mg/dL (9.0-27.0); Carbon Dioxide 26.5 mmol/L (21.6-31.8); Chloride 96 mmol/L (96-109); Globulin 2.1 g/dL (1.6-3.3); Glucose 180 mg/dL (70-110); Potassium 4.3 mmol/L (3.5-5.5); Sodium 136 mmol/L (135-145); Total Bilirubin 0.5 mg/dL (0.3-1.2); Total Protein 6.2 g/dL (6.2-8.2)
--- NOTE | 2024-07-28 12:18 | XR ---
EXAMINATION TYPE: XR chest 1V portable DATE OF EXAM: 07/28/2024 12:12 PM COMPARISON: Chest radiographs from 07/27/2024, CT chest 07/27/2024 TECHNIQUE: XR chest 1V portable Portable AP radiograph of the chest. CLINICAL INDICATION:Male, 84 years old with history of post thoracentesis; FINDINGS: Lungs/Pleura: Decreasing small right pleural effusion with associated atelectasis. No focal consolida tion or pneumothorax. Pulmonary vascularity: Unremarkable. Heart/mediastinum: Cardiomediastinal silhouette is enlarged and stable. Single-lead cardiac conductio n device overlying the left hemithorax with lead projecting over the right ventricle. Musculoskeletal: No acute osseous pathology. IMPRESSION: Decreased small right pleural effusion status post thoracentesis with associated atelectasis. No pneu mothorax. [facility], , 07/28/2024 12:15 PM
--- NOTE | 2024-07-28 14:40 | P.PN ---
Subjective Progress Note Date: 07/28/24 85-year-old male patient, presented to the emergency department with worsening shortness of breath. The patient is known to me and he has multiple medical problems and comorbidities. More recently, the patient was diagnosed having metastatic renal cell carcinoma. He has undergone a right nephrectomy that was performed at [facility]. 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 Subsequently, the patient was admitted to [facility] for acute chest pain and the patient was diagnosed having an acute myocardial infarction he underwent cardiac catheterization and coronary stenting x 3 involving the LAD a nd circumflex and obtuse marginal on 01/24/2024. He was also found to have severe ischemic cardiomyopathy I last saw the patient in my office back in April 2024. At that time, his chest x-ray showed a moderate-sized right- sided pleural effusion. He was hypoxic and he was placed on oxygen 2 L/min nasal cannula. Since then, the patient was seen and [facility] the patient underwent thoracentesis of the right lung approximately a week ago and a total of 1.5 L of fluid was drained from the right lung. The fluid was nonmalignant. He shortness of breath improved and subsequently recurred. No fever. No chest pain. He came into the emergency and the patient's white cell count is at 8.4 with a hemoglobin 12.2 and a platelet count of 247. Coagulation profile is within normal limits. BUN 25 with a creatinine 1.2. Sodium levels at 133. proBNP level is 5410 and troponins are negative and the viral screen came back negative. A follow-up chest x-ray was done in the emergency and the patient was found to have a small to moderate-sized right-sided pleural effusion. Based on that a pulmonary consultation was requested. The patient is currently on room air oxygen with a pulse ox of 96%. He was hospitalized accordingly. The patient's comorbid conditions include metastatic renal cell carcinoma, coronary artery disease with previous [place] requiring coronary stenting x 3 do on 01/24/2024,CHF, AICD, history of right-sided pleural effusion, moderate persistent bronchial asthma, asbestosis, chronic A-fib, obesity and obstructive sleep apnea and the patient has not been tolerant to CPAP therapy. He is currently on Eliquis for anticoagulants. He takes antiplatelet agents with aspirin and Plavix. On 07/28/2024, the patient continues to have shortness of breath. Reviewed the CAT scan of the chest that was obtained yesterday and this was a noncontrast CAT scan of the chest. The patient was found to have a moderate-sized right-sided pleural effusion along with compressive atelectatic changes right lung base. In addition, there is cardiomegaly, moderate to severe atherosclerotic changes and nodularity along the right pleura and some nonspecific mediastinal lymph nodes were also noted. The white cell count is at 8 with a heme of 12.3 and a platelet count of 223. Electrolytes are stable. BUN is 26 with a creatinine of 1.3. The patient remains on IV Lasix. He remains on room air oxygen. Objective - Vital Signs Vital signs: Vital Signs Temp 98.2 F 07/28/24 08:00 Pulse 76 07/28/24 08:37 Resp 17 07/28/24 08:00 BP 109/60 07/28/24 08:00 Pulse Ox 94 L 07/28/24 08:23 FiO2 21 07/28/24 08:23 Intake & Output 07/27/24 07/28/24 07/28/24 18:59 06:59 18:59 Weight 95.254 kg 95.254 kg Other: # Voids 2 - Exam The patient appeared well nourished and normally developed. Vital signs as documented. Patient is a body mass index of 30 Head exam is unremarkable. No scleral icterus or corneal arcus noted. Neck is without jugular venous distension, thyromegaly, or carotid bruits. Carotid upstrokes are brisk bilaterally. Lungs are clear to auscultation and percussion. There is diminished breath sound right lung base along with dullness to percussion Cardiac exam reveals the PMI to be normally sized and situated. Irregular consistent with atrial fibrillation with a controlled rate. First and second heart sounds normal. No murmurs, rubs or gallops. Abdominal exam reveals normal bowel sounds, no masses, no organomegaly and no aortic enlargement. Extremities are nonedematous and both femoral and pedal pulses are normal. Examination of the skin revealed no evidence of significant rashes, suspicious appearing nevi or other concerning lesions. Neurologically, the patient is awake and alert and the patient does not have any focal neurological deficit. Cranial nerves are essentially intact. - Labs CBC & Chem 7: 07/28/24 03:57 07/28/24 03:57 Labs: Abnormal Lab Results - Last 24 Hours (Table) 07/27/24 07/27/24 07/28/24 Range/Units 11:50 11:50 03:57 RBC 4.37 L (4.40-5.60) X 10*6/uL Hgb 12.2 L 12.3 L (13.0-17.5) gm/dL Hct 38.5 L 37.3 L (39.0-53.0) % RDW 16.5 H 15.9 H (11.5-15.5) % MPV 9.2 L (9.5-12.2) FL Lymphocytes # 0.53 L (0.90-5.00) X 10*3/uL Monocytes # 0.04 L (0.20-1.00) X 10*3/uL Eosinophils # 0 L (0.04-0.35) X 10*3/uL Sodium 133 L (137-145) mmol/L Chloride 96 L (98-107) mmol/L Anion Gap (4.00-12.00) mmol/L BUN 24 H (9-20) mg/dL Est GFR (CKD-EPI) (>=60) BUN/Creatinine Ratio (12.00-20.00) Ratio Glucose 112 H (74-99) mg/dL 07/28/24 Range/Units 03:57 RBC (4.40-5.60) X 10*6/uL Hgb (13.0-17.5) gm/dL Hct (39.0-53.0) % RDW (11.5-15.5) % MPV (9.5-12.2) FL Lymphocytes # (0.90-5.00) X 10*3/uL Monocytes # (0.20-1.00) X 10*3/uL Eosinophils # (0.04-0.35) X 10*3/uL Sodium (137-145) mmol/L Chloride (98-107) mmol/L Anion Gap 13.50 H (4.00-12.00) mmol/L BUN (9-20) mg/dL Est GFR (CKD-EPI) 55 L (>=60) BUN/Creatinine Ratio 20.08 H (12.00-20.00) Ratio Glucose 180 H (74-99) mg/dL Assessment and Plan Plan: Acute on chronic shortness of breath, multifactorial. The patient is known to have CHF/ischemic cardiomyopathy and the patient has developed a right-sided pleural effusion. This was noted few months back and the patient has undergone recent thoracentesis at [facility] with removal of 1.5 L of pleural fluid. The fluid was nonmalignant, The analysis is not available. Chest x-ray shows a small to moderate-sized right-sided pleural effusion. proBNP is also elevated. metastatic renal cell carcinoma. This patient was diagnosed having renal cell carcinoma right-sided and the patient underwent a right nephrectomy. Noted the patient had encountered headaches and further workup showed that the patient had a brain lesion for which he underwent a craniotomy and the headaches have subsided. He is being treated through [facility] by the oncology, neurosurgery and urology teams. coronary arteriosclerosis. The patient is post [place] and he had cath and stenting [place] x 3 , [facility], 01/24/24, and the patient had stenting of LAD, Cx and OM and he has an AICD systolic heart failure, ayatolic heart failure, post AICD moderate persistent asthma, The patient is well controlled on a combination of Symbicort and Singulair. He is stable for now and he has no new complaints. His postnasal drainage is nonallergic in nature. chronic rhinitis,nonallergic in nature asbestosis atrial fibrillation, chronic osteoarthritis obesity obstructive sleep apnea syndrome, OREN with an AHI of 44 and severe nocturnal oxygen desaturation. He ass declining CPAP therapy and he was encouraged to loose weight. He totally understand the ill effect of OREN on asthma, cardiac disease and atrial fibrillation. He meanwhile had significant weight loss as the patient receiving therapy for renal cancer Plan Patient is currently on room air oxygen Patient is complaining of exertional dyspnea and even dyspnea at rest Reviewed the chest x-ray the pleural effusion is small to moderate in size Reviewed the CAT scan of the chest and there is a suspicion for malignant right- sided pleural effusion We will perform a diagnostic and therapeutic thoracentesis today Will restart anticoagulation for thoracentesis Switch Lasix to p.o. Will follow
--- NOTE | 2024-07-28 14:41 | P.PCN ---
Date of Procedure: 07/28/24 Preoperative Diagnosis: Pleural effusion, right Postoperative Diagnosis: Same Procedure(s) Performed: Thoracentesis, right Anesthesia: local Surgeon: Eamon Sacueda Estimated Blood Loss (ml): 0 Pathology: other Condition: stable Disposition: floor Operative Findings: A time out was performed and the chest x-ray was reviewed, the appropriate side was confirmed and marked. My hands were washed immediately prior to the procedure. I wore a surgical cap, mask with protective eyewear, sterile gown and sterile gloves throughout the procedure. The patient was prepped and draped in a sterile manner using chlorhexidine scrub after the appropriate level was percussed and confirmed by ultrasound. 1% lidocaine was used to anesthesize the skin, subcutaneous tissue, superior aspect of the rib periosteum and parietal pleura. A finder needle was then introduced over the superior aspect of the rib to locate the pleural fluid; 2colored fluid was aspirated at a depth of approximately 2 cm. A 10-blade scalpel was used to elsa the skin at the insertion site. The [id number] needle was then introduced through the skin incision into the pleural space using negative aspiration pressure and the red colometric indicator to confirm appropriate positioning of the needle. The thora centesis catheter was then threaded without difficulty. 1200 ml of turbid colored fluid was removed without difficulty. The catheter was then removed. No immediate complications were noted during the procedure. A post-procedure chest x-ray is pending at the time of this note. The fluid will be sent for studies. Estimated blood loss is 0cc
[2024-07-28] MEDS: FUROSEMIDE 40 MG TAB PO SCH (17:19)
[2024-07-28 20:08] VITALS: RESP 18
--- NOTE | 2024-07-29 06:58 | P.HPIM ---
History of Present Illness H&P Date: 07/28/24 Miguel A Romo, is an 84-year-old male who presented to [facility] emergency room with a chief complaint of worsening shortness of breath He was evaluated in the emergency room vital examination on presentation revealed a temperature of 98 pulse 90 respiration 22 blood pressure 155/77 pulse ox 93% on room air Laboratory data revealed a white blood count of 8.4 hemoglobin 12.2 platelet count 247 sodium 133 potassium 4.7 chloride 96 CO2 30 BUN 24 creatinine 1.24 BNP 5410 troponin 0.012 Testing in the emergency room revealed chest x-ray done in the emergency room revealed small to moderate size right pleural effusion and cardiomegaly. EKG revealed atrial fibrillation with incomplete right bundle branch block Patient was admitted to medical floor for further evaluation and treatment, pulmonary consultation was requested. Past Medical History Past Medical History: Atrial Fibrillation, Asthma, Coronary Artery Disease (CAD), Cancer, Hyperlipidemia, Hypertension, Sleep Apnea/CPAP/BIPAP Additional Past Medical History / Comment(s): ICD placed in 2024. pt says he doesn't wear bipap at home. History of Any Multi-Drug Resistant Organisms: None Reported Past Surgical History: Heart Catheterization Additional Past Surgical History / Comment(s): EXC CATARACTS. CERVICAL FUSION. TOTAL SUNITHA HIPS. UMB HERNIA. RT SCOPE X2. TOTAL RT KNEE. Past Anesthesia/Blood Transfusion Reactions: No Reported Reaction Past Psychological History: No Psychological Hx Reported Smoking Status: Never smoker Past Alcohol Use History: Occasional Additional Past Alcohol Use History / Comment(s): SMOKED 15 YEARS EST, 1 PPD, Q UIT 1988 EST. ALCOHOL ADMITS TO 2 SHOT OF ALCOHOL A DAY. Past Drug Use History: None Reported - Past Family History Mother Additional Family Medical History / Comment(s): LIVER/COLON CANCER. Father Family Medical History: Myocardial Infarction ([place]) Additional Family Medical History / Comment(s): CABG. AGE 83. Medications and Allergies Home Medications Medication Instructions Recorded Confirmed Type Cholecalciferol [Vitamin D3 (25 25 mcg PO DAILY 11/26/15 07/27/24 History Mcg = 1000 Iu)] Cinnamon Bark [Cinnamon] 500 mg PO DAILY 11/26/15 07/27/24 History Losartan [Cozaar] 12.5 mg PO HS 11/26/15 07/27/24 History Pravastatin Sodium [Pravachol] 80 mg PO HS 05/27/18 07/27/24 History Apixaban [Eliquis] 5 mg PO BID #60 tab 05/29/18 07/27/24 Rx Albuterol Inhaler [Ventolin Hfa 2 puff INHALATION RT-Q4H PRN 07/27/24 07/27/24 History Inhaler] Clopidogrel [Plavix] 75 mg PO DAILY 07/27/24 07/27/24 History Digoxin [Digitek] 125 mcg PO Q2D 07/27/24 07/27/24 History Fluticasone Propion/Salmeterol 2 puff INHALATION RT-BID 07/27/24 07/27/24 History [Advair Hfa 45-21 Mcg Inhaler] Furosemide [Lasix] 20 mg PO DAILY PRN 07/27/24 07/27/24 History Levothyroxine Sodium [Synthroid] 25 mcg PO AC-BRKFST 07/27/24 07/27/24 History Metoprolol Succinate [Toprol XL] 50 mg PO BID 07/27/24 07/27/24 History Allergies Allergy/AdvReac Type Severity Reaction Status Date / Time empagliflozin Allergy Rash/Hives Verified 07/27/24 15:27 [From Jardiance] acetaminophen [From Wilson] AdvReac Nausea & Verified 07/27/24 15:27 Vomiting hydrocodone [From Wilson] AdvReac Nausea & Verified 07/27/24 15:27 Vomiting Physical Exam Vitals: Vital Signs Temp Pulse Pulse Resp BP BP Pulse Ox 07/28/24 08:37 76 07/28/24 08:23 72 94 L 07/28/24 08:00 98.2 F 84 17 109/60 95 07/28/24 01:11 98.1 F 82 17 116/57 92 L 07/27/24 21:24 97.8 F 63 18 135/69 99 07/27/24 21:03 78 18 122/79 90 L 07/27/24 20:17 72 07/27/24 20:07 68 07/27/24 19:33 97.9 F 71 18 122/79 95 07/27/24 18:00 86 16 130/70 94 L 07/27/24 16:50 76 16 120/74 96 07/27/24 16:39 82 07/27/24 16:27 80 07/27/24 16:00 60 16 103/60 98 07/27/24 14:00 64 16 134/61 98 07/27/24 13:18 77 07/27/24 13:11 16 07/27/24 13:05 68 07/27/24 13:00 60 20 130/60 95 07/27/24 12:48 56 L 16 131/61 93 L 07/27/24 11:46 98 F 90 22 155/77 100 FiO2 07/28/24 08:37 07/28/24 08:23 21 07/28/24 08:00 07/28/24 01:11 07/27/24 21:24 07/27/24 21:03 07/27/24 20:17 07/27/24 20:07 07/27/24 19:33 07/27/24 18:00 07/27/24 16:50 07/27/24 16:39 07/27/24 16:27 07/27/24 16:00 07/27/24 14:00 07/27/24 13:18 07/27/24 13:11 07/27/24 13:05 07/27/24 13:00 07/27/24 12:48 07/27/24 11:46 Intake and Output 07/27/24 07/28/24 07/28/24 22:59 06:59 14:59 Other: # Voids 2 Weight 95.254 kg In general patient is alert and oriented x 3 in no distress HEENT head normocephalic and atraumatic Neck is supple no JVD no goiter no lymphadenopathy no carotid bruit Chest examination is clear to auscultation no crackles no wheezing Cardiac exam reveals regular heart sounds S1 and S2 no gallops no murmurs Abdomen is soft nontender no organomegaly with normal bowel sounds Extremity exam reveals no edema no cyanosis or clubbing Neurological examination reveals no gross focal deficits Results CBC & Chem 7: 07/28/24 03:57 07/28/24 03:57 Labs: Abnormal Lab Results - Last 24 Hours (Table) 07/27/24 07/27/24 07/28/24 Range/Units 11:50 11:50 03:57 RBC 4.37 L (4.40-5.60) X 10*6/uL Hgb 12.2 L 12.3 L (13.0-17.5) gm/dL Hct 38.5 L 37.3 L (39.0-53.0) % RDW 16.5 H 15.9 H (11.5-15.5) % MPV 9.2 L (9.5-12.2) FL Lymphocytes # 0.53 L (0.90-5.00) X 10*3/uL Monocytes # 0.04 L (0.20-1.00) X 10*3/uL Eosinophils # 0 L (0.04-0.35) X 10*3/uL Sodium 133 L (137-145) mmol/L Chloride 96 L (98-107) mmol/L Anion Gap (4.00-12.00) mmol/L BUN 24 H (9-20) mg/dL Est GFR (CKD-EPI) (>=60) BUN/Creatinine Ratio (12.00-20.00) Ratio Glucose 112 H (74-99) mg/dL / Range/Units 03:57 RBC (4.40-5.60) X 10*6/uL Hgb (13.0-17.5) gm/dL Hct (39.0-53.0) % RDW (11.5-15.5) % MPV (9.5-12.2) FL Lymphocytes # (0.90-5.00) X 10*3/uL Monocytes # (0.20-1.00) X 10*3/uL Eosinophils # (0.04-0.35) X 10*3/uL Sodium (137-145) mmol/L Chloride (98-107) mmol/L Anion Gap 13.50 H (4.00-12.00) mmol/L BUN (9-20) mg/dL Est GFR (CKD-EPI) 55 L (>=60) BUN/Creatinine Ratio 20.08 H (12.00-20.00) Ratio Glucose 180 H (74-99) mg/dL Thrombosis Risk Factor Assmnt - Choose All That Apply Any of the Below Risk Factors Present?: Yes Each Factor Represents 1 point: Abnormal pulmonary function (COPD), Obesity (BMI >25) Other Risk Factors: Yes Each Risk Factor Represents 3 Points: Age 75 years or older Thrombosis Risk Factor Assessment Total Risk Factor Score: 5 Thrombosis Risk Factor Assessment Level: High Risk Assessment and Plan Plan: Worsening shortness of breath, Right-sided pleural effusion Underlying history of asthma Underlying history of congestive heart failure with cardiomyopathy Underlying history of coronary artery disease with history of cardiac catheterization and stent placement in 2023 Underlying history of metastatic renal cell carcinoma, status post right nep hrectomy Underlying history of chronic atrial fibrillation Underlying history of obstructive sleep apnea Underlying history of osteoarthritis Underlying history of morbid obesity Remote history of asbestos exposure At this time patient was seen and examined Home medications reviewed and reordered Anticoagulation is on hold for possible thoracentesis Pulmonary consultation was requested
--- NOTE | 2024-07-29 07:28 | P.PN ---
Subjective Progress Note Date: 07/29/24 Miguel A Romo, is an 84-year-old male who presented to [facility] emergency room with a chief complaint of worsening shortness of breath He was evaluated in the emergency room vital examination on presentation revealed a temperature of 98 pulse 90 respiration 22 blood pressure 155/77 pulse ox 93% on room air Laboratory data revealed a white blood count of 8.4 hemoglobin 12.2 platelet c ount 247 sodium 133 potassium 4.7 chloride 96 CO2 30 BUN 24 creatinine 1.24 BNP 5410 troponin 0.012 Testing in the emergency room revealed chest x-ray done in the emergency room revealed small to moderate size right pleural effusion and cardiomegaly. EKG revealed atrial fibrillation with incomplete right bundle branch block Patient was admitted to medical floor for further evaluation and treatment, pulmonary consultation was requested. On 07/29/2024 patient was seen and examined on the medical floor he is alert and oriented x 3 in no apparent distress there is no fever or chills no headache or dizziness no chest pain, his shortness of breath has improved and he has minimal cough there is no nausea or vomiting no abdominal pain no diarrhea no blood in the stools no burning with urination no frequency or urgency and no hematuria. Objective - Vital Signs Vital signs: Vital Signs Temp 98.5 F 07/29/24 01:15 Pulse 71 07/29/24 01:15 Resp 18 07/29/24 01:15 BP 102/58 07/29/24 01:15 Pulse Ox 94 L 07/29/24 01:15 FiO2 21 07/28/24 08:23 Intake & Output 07/28/24 07/28/24 07/29/24 06:59 18:59 06:59 Intake Total 920 Balance 920 Weight 95.254 kg Intake: Oral 920 Other: # Voids 2 2 3 - Exam In general patient is alert and oriented x 3 in no distress HEENT head normocephalic and atraumatic Neck is supple no JVD no goiter no lymphadenopathy no carotid bruit Chest examination is clear to auscultation no crackles no wheezing Cardiac exam reveals regular heart sounds S1 and S2 no gallops no murmurs Abdomen is soft nontender no organomegaly with normal bowel sounds Extremity exam reveals no edema no cyanosis or clubbing Neurological examination reveals no gross focal deficits - Labs CBC & Chem 7: 07/28/24 03:57 07/28/24 03:57 Labs: Abnormal Lab Results - Last 24 Hours (Table) 07/28/24 07/28/24 Range/Units 03:57 03:57 RBC 4.37 L (4.40-5.60) X 10*6/uL Hgb 12.3 L (13.0-17.0) g/dL Hct 37.3 L (39.6-50.0) % RDW 15.9 H (11.5-14.5) % MPV 9.2 L (9.5-12.2) FL Lymphocytes # 0.53 L (0.90-5.00) X 10*3/uL Monocytes # 0.04 L (0.20-1.00) X 10*3/uL Eosinophils # 0 L (0.04-0.35) X 10*3/uL Anion Gap 13.50 H (4.00-12.00) mmol/L Est GFR (CKD-EPI) 55 L (>=60) BUN/Creatinine Ratio 20.08 H (12.00-20.00) Ratio Glucose 180 H (70-110) mg/dL Assessment and Plan Plan: Worsening shortness of breath, Right-sided pleural effusion Underlying history of asthma Underlying history of congestive heart failure with cardiomyopathy Underlying history of coronary artery disease with history of cardiac catheterization and stent placement in 2023 Underlying history of metastatic renal cell carcinoma, status post right nephrectomy Underlying history of chronic atrial fibrillation Underlying history of obstructive sleep apnea Underlying history of osteoarthritis Underlying history of morbid obesity Remote history of asbestos exposure At this time patient was seen and examined Home medications reviewed and reordered Anticoagulation is on hold for possible thoracentesis Pulmonary consultation was requested
[2024-07-29 07:54] LABS: Anisocytosis Slight; Basophils % (A) 0 %; Eosinophils % (A) 0 %; HCT 36.7 % (39.0-53.0); HGB 11.8 gm/dL (13.0-17.5); Lymphocytes # (A) 0.5 k/uL (1.0-4.8); Lymphocytes % (A) 3 %; MCHC 32.2 g/dL (31.0-37.0); MCV 86.8 fL (80.0-100.0); Mean Platelet Volume 7.3; Monocytes # (A) 0.3 k/uL (0-1.0); Monocytes % (A) 2 %; Neutrophils # (A) 13.9 k/uL (1.3-7.7); Neutrophils % (A) 94 %; Platelet Count 253 k/uL (150-450); RBC 4.23 m/uL (4.30-5.90); RDW 16.6 % (11.5-15.5); WBC 14.7 k/uL (3.8-10.6)
[2024-07-29 07:56] LABS: Glucose, BF Source Pleural Fluid; Glucose, Body Fluid 217 mg/dL; LDH, Body Fluid Source Pleural Fluid; T. Protein, Body Fluid Source Pleural Fluid; Total Protein, Body Fluid 3170 mg/dL
[2024-07-29 08:03] LABS: Appearance,BF Blood Tinged (Clear)
[2024-07-29 08:16] LABS: ALT 18 U/L (4-49); AST 21 U/L (17-59); African American GFR (CKD) 82 (>60 ml/min/1.73 sqM); Albumin 4.1 g/dL (3.5-5.0); Albumin/Globulin Ratio 1.7; Alkaline Phosphatase 74 U/L (38-126); Anion Gap 11 mmol/L; Blood Urea Nitrogen 35 mg/dL (9-20); Calcium 8.9 mg/dL (8.4-10.2); Carbon Dioxide 29 mmol/L (22-30); Chloride 92 mmol/L (98-107); Globulin 2.4 g/dL; Glucose 159 mg/dL (74-99); Non-African American GFR(CKD) 71 (>60 ml/min/1.73 sqM); Potassium 4.2 mmol/L (3.5-5.1); Sodium 132 mmol/L (137-145); Total Bilirubin 0.7 mg/dL (0.2-1.3); Total Protein 6.5 g/dL (6.3-8.2)
[2024-07-29 08:41] VITALS: BP 118/66; TEMP 98.1
[2024-07-29] MEDS: APIXABAN 5 MG TAB PO SCH (09:49)
[2024-07-29] MEDS: DIGOXIN 125 MCG TAB PO SCH (09:50)
[2024-07-29 12:58] VITALS: PULSE 70
--- NOTE | 2024-07-29 14:32 | P.PN ---
Subjective Progress Note Date: 07/29/24 85-year-old male patient, presented to the emergency department with worsening shortness of breath. The patient is known to me and he has multiple medical problems and comorbidities. More recently, the patient was diagnosed having metastatic renal cell carcinoma. He has undergone a right nephrectomy that was performed at [facility]. 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 Subsequently, the patient was admitted to [facility] for acute chest pain and the patient was diagnosed having an acute myocardial infarction he underwent cardiac catheterization and coronary stenting x 3 involving the LAD a nd circumflex and obtuse marginal on 01/24/2024. He was also found to have severe ischemic cardiomyopathy I last saw the patient in my office back in April 2024. At that time, his chest x-ray showed a moderate-sized right- sided pleural effusion. He was hypoxic and he was placed on oxygen 2 L/min nasal cannula. Since then, the patient was seen and [facility] the patient underwent thoracentesis of the right lung approximately a week ago and a total of 1.5 L of fluid was drained from the right lung. The fluid was nonmalignant. He shortness of breath improved and subsequently recurred. No fever. No chest pain. He came into the emergency and the patient's white cell count is at 8.4 with a hemoglobin 12.2 and a platelet count of 247. Coagulation profile is within normal limits. BUN 25 with a creatinine 1.2. Sodium levels at 133. proBNP level is 5410 and troponins are negative and the viral screen came back negative. A follow-up chest x-ray was done in the emergency and the patient was found to have a small to moderate-sized right-sided pleural effusion. Based on that a pulmonary consultation was requested. The patient is currently on room air oxygen with a pulse ox of 96%. He was hospitalized accordingly. The patient's comorbid conditions include metastatic renal cell carcinoma, coronary artery disease with previous NH requiring coronary stenting x 3 do on 01/24/2024,CHF, AICD, history of right-sided pleural effusion, moderate persistent bronchial asthma, asbestosis, chronic A-fib, obesity and obstructive sleep apnea and the patient has not been tolerant to CPAP therapy. He is currently on Eliquis for anticoagulants. He takes antiplatelet agents with aspirin and Plavix. On 07/28/2024, the patient continues to have shortness of breath. Reviewed the CAT scan of the chest that was obtained yesterday and this was a noncontrast CAT scan of the chest. The patient was found to have a moderate-sized right-sided pleural effusion along with compressive atelectatic changes right lung base. In addition, there is cardiomegaly, moderate to severe atherosclerotic changes and nodularity along the right pleura and some nonspecific mediastinal lymph nodes were also noted. The white cell count is at 8 with a heme of 12.3 and a platelet count of 223. Electrolytes are stable. BUN is 26 with a creatinine of 1.3. The patient remains on IV Lasix. He remains on room air oxygen. On 07/29/2024, the patient is feeling better following his thoracentesis. No complication following the procedure. He is calm and comfortable. No respiratory difficulties and he remains on room air oxygen. The white cell count is 14 with a hemoglobin 9.8 and a platelet count of 253. Electrolytes are all stable with a BUN of 75 and a creatinine of 0.99. The fluid chemistry showed a protein level that is consistent with transudate. LDH is slightly elevated. Cytology still pending for now. No chest pain. No pleurisy. No hemoptysis. No swelling in lower extremities. Objective - Vital Signs Vital signs: Vital Signs Temp 98.1 F 07/29/24 07:05 Pulse 76 07/29/24 07:05 Resp 18 07/29/24 07:05 BP 118/66 07/29/24 07:05 Pulse Ox 98 07/29/24 07:05 FiO2 21 07/28/24 08:23 Intake & Output 07/28/24 07/29/24 07/29/24 18:59 06:59 18:59 Intake Total 920 Balance 920 Intake: Oral 920 Other: Voiding Method Toilet # Voids 2 3 - Exam The patient appeared well nourished and normally developed. Vital signs as documented. Patient is a body mass index of 30 Head exam is unremarkable. No scleral icterus or corneal arcus noted. Neck is without jugular venous distension, thyromegaly, or carotid bruits. Carotid upstrokes are brisk bilaterally. Lungs are clear to auscultation and percussion. There is diminished breath sound right lung base along with dullness to percussion Cardiac exam reveals the PMI to be normally sized and situated. Irregular consistent with atrial fibrillation with a controlled rate. First and second heart sounds normal. No murmurs, rubs or gallops. Abdominal exam reveals normal bowel sounds, no masses, no organomegaly and no aortic enlargement. Extremities are nonedematous and both femoral and pedal pulses are normal. Examination of the skin revealed no evidence of significant rashes, suspicious appearing nevi or other concerning lesions. Neurologically, the patient is awake and alert and the patient does not have any focal neurological deficit. Cranial nerves are essentially intact. - Labs CBC & Chem 7: 07/29/24 07:16 07/29/24 07:16 Labs: Abnormal Lab Results - Last 24 Hours (Table) 07/28/24 07/29/24 07/29/24 Range/Units 12:15 07:16 07:16 WBC 14.7 H (3.8-10.6) k/uL RBC 4.23 L (4.30-5.90) m/uL Hgb 11.8 L (13.0-17.5) gm/dL Hct 36.7 L (39.0-53.0) % RDW 16.6 H (11.5-15.5) % Neutrophils # 13.9 H (1.3-7.7) k/uL Lymphocytes # 0.5 L (1.0-4.8) k/uL Sodium 132 L (137-145) mmol/L Chloride 92 L (98-107) mmol/L BUN 35 H (9-20) mg/dL Glucose 159 H (74-99) mg/dL Fluid Appearance Blood Tinged A (Clear) Assessment and Plan Plan: Acute on chronic shortness of breath, multifactorial. The patient is known to have CHF/ischemic cardiomyopathy and the patient has developed a right-sided pleural effusion. This was noted few months back and the patient has undergone recent thoracentesis at [facility] with removal of 1.5 L of pleural fluid. The fluid was nonmalignant, The analysis is not available. Chest x-ray shows a small to moderate-sized right-sided pleural effusion. proBNP is also elevated. Noted the patient underwent another thoracentesis on 07/28/2024. I performed the procedure and a total of 1.2 L of fluid was aspirated. No complications. Clinically much improved. Fluid cytology still pending for now. The fluid is a chance that based on the protein criteria. LDH is also low. metastatic renal cell carcinoma. This patient was diagnosed having renal cell carcinoma right-sided and the patient underwent a right nephrectomy. Noted the patient had encountered headaches and further workup showed that the patient had a brain lesion for which he underwent a craniotomy and the headaches have subsided. He is being treated through [facility] by the oncology, neurosurgery and urology teams. coronary arteriosclerosis. The patient is post NH and he had cath and stenting NH x 3 , [facility], 01/24/24, and the patient had stenting of LAD, Cx and OM and he has an AICD systolic heart failure, ayatolic heart failure, post AICD moderate persistent asthma, The patient is well controlled on a combination of Symbicort and Singulair. He is stable for now and he has no new complaints. His postnasal drainage is nonallergic in nature. chronic rhinitis,nonallergic in nature asbestosis atrial fibrillation, chronic osteoarthritis obesity obstructive sleep apnea syndrome, OREN with an AHI of 44 and severe nocturnal oxygen desaturation. He ass declining CPAP therapy and he was encouraged to lo ose weight. He totally understand the ill effect of OREN on asthma, cardiac disease and atrial fibrillation. He meanwhile had significant weight loss as the patient receiving therapy for renal cancer Plan Patient is currently on room air oxygen Patient is complaining of exertional dyspnea and even dyspnea at rest Reviewed the chest x-ray the pleural effusion is small to moderate in size Reviewed the CAT scan of the chest and there is a suspicion for malignant right- sided pleural effusion Thoracentesis was done and a total of 1.2 L of fluid was aspirated from the right lung without any complications. The patient is already feeling better and the patient can be discharged home on oral Lasix to be followed up on outpatient basis. This fluid cytology will be checked on outpatient basis.
--- NOTE | 2024-07-31 11:38 | CDI ---
Documentation Clarification Form Date: 07/31/2024 11:24:45 AM From: Sophie Leigh Phone: Admit Date: 07/27/2024 03:29:00 PM Patient Name: Miguel A Romo Visit Number: [id number] Discharge Date: 07/29/2024 03:23:00 PM ATTENTION: The Clinical Documentation Specialists (CDI) and [facility] Coding Staff appreciate your assistance in clarifying documentation. Please respond to the clarification below the line at the bottom and electronically sign. The CDI & [facility] Coding staff will review the response and follow-up if needed. Please note: Queries are made part of the Legal Health Record. If you have any questions, please contact the author of this message via ITS. Doctor/Provider: Eamon Sauceda Your patient has the documented diagnosis of unspecified CHF in consult note . Additional information regarding the type of CHF is requested. History/Risk Factors: pt is 84-year-old male who presented [facility] emergency room with a chief complaint of worseningshortness of breath He was evaluated in the emergency room vital examination on presentation revealed a temperature of 98 pulse 90 respiration 22 [id number] pulse ox 93% on room air The patient's comorbid conditions includemetastaticrenal cell carcinoma, coronary artery diseasewithprevious MIrequiringcoronary stentingx 3 do on 01/24/2024,CHF,AICD, history of right-sidedpleural effusion, moderate pers istentbronchial asthma,asbestosis,chronic A-fib,obesityandobstructive sleep apneaand the patienthas not beentolerant toCPAPtherapy. He is currently on Eliquisfor anticoagulants. He takes antiplatelet agents with aspirin and Plavix. Clinical Indicators: Laboratory data revealed a white blood count of 8. 4 hemoglobin 12. 2 platelet count 247 sodium 133 potassium 4. 7 chloride 96 CO2 30 BUN 24 creatinine 1. 24 BNP 5410 troponin 0. 012 Echocardiogram Results: EKG revealedatrial fibrillationwith incompleteright bundle branch block Chest X Ray: chest x-raydone in the emergency room revealed small to moderate size rightpleural effusionandcardiomegaly On 07/27 consult note -systolic heart failure, ayatolicheart failure, postAICD On 07/28 pn -On07/28/2024, the patient continues to haveshortness of breath. Reviewed the CAT scanof the chest that was obtained yesterday and this was a noncontrastCAT scanof the chest. The patient was found to have a moderate-sized right-sided pleural effusionalong withcompressiveatelectatic changes right lung base. In addition, there iscardiomegaly, moderate to severeatheroscleroticchanges and nodularity along the right pleura and some nonspecific mediastinal lymphnodes were also noted. The white cell count is at 8 with a heme of 12. 3 and a platelet count of 223. Electrolytes are stable. BUN is 26 with a creatinine of 1. 3. The patient remains on IV Lasix. He remains on room air oxygen. On 07/29 pn -Acute on chronicshortness of breath, multifactorial. The patient is known to haveCHF/ischemic cardiomyopathyand the patient has developed a right-sided pleural effusion. This was noted few months back and [facility] withrem[facility]of [facility]. 5 L of pleural fluid. The fluid was nonmalignant, Theanalysisis not available. Chest x-ray shows a small to moderate-sized right-sidedpleural effusion. proBNP is also elevated. Noted the patient underwent anotherthoracentesison07/28/2024. I performed the procedure and a total of 1. 2 L of fluid wasaspirated. No complications. Clinically much improved. Fluid cytology still pending for now. The fluid is a chance that based on the protein criteria. LDH is also low. Treatment: thoracentesis rt side , Will start the patient on diuretics with IV Lasix 20 mg every 12 hours In your professional opinion, can you please clarify the type of CHF if known? [ ] Acute Systolic Heart Failure (reduced EF) [ ] Chronic Systolic Heart Failure (reduced EF) [ ] Acute on Chronic Systolic Heart Failure (reduced EF) [ ] Acute Diastolic Heart Failure (preserved EF) [ x ] Chronic Diastolic Heart Failure (preserved EF) [ ] Acute on Chronic Diastolic Heart Failure (preserved EF) [ ] Acute Systolic & Diastolic Heart Failure [ ] Chronic Systolic & Diastolic Heart Failure [ ] Acute on Chronic Heart Failure Systolic & Diastolic Heart Failure [ ] Other, please specify [ ] Unable to determine (Template Last Revised: June 2020) MTDD
== END 2024-07-29 15:23 | disposition home or self-care (01) | DRG 187 ==
LOC: EC 11:44 → 4SSUR 15:29
PROVIDERS: ADMIT Internal Medicine; ATTEND Internal Medicine
PROC: 0W993ZZ Drainage of Right Pleural Cavity, Percutaneous Approach (ICD-10-PCS; principal; 2024-07-28)
DX: J90 Pleural effusion, not elsewhere classified (principal); I48.20 Chronic atrial fibrillation, unspecified; I50.32 Chronic diastolic (congestive) heart failure; I11.0 Hypertensive heart disease with heart failure; J44.1 Chronic obstructive pulmonary disease with (acute) exacerbation; E66.9 Obesity, unspecified; I25.5 Ischemic cardiomyopathy; J45.40 Moderate persistent asthma, uncomplicated; I25.10 Atherosclerotic heart disease of native coronary artery without angina pectoris; G47.33 Obstructive sleep apnea (adult) (pediatric); J31.0 Chronic rhinitis; M19.90 Unspecified osteoarthritis, unspecified site; I45.10 Unspecified right bundle-branch block; R09.02 Hypoxemia; Z77.090 Contact with and (suspected) exposure to asbestos; Z85.528 Personal history of other malignant neoplasm of kidney; Z79.82 Long term (current) use of aspirin; Z95.5 Presence of coronary angioplasty implant and graft; I25.2 Old myocardial infarction; Z79.890 Hormone replacement therapy; Z88.8 Allergy status to other drugs, medicaments and biological substances; Z79.01 Long term (current) use of anticoagulants; Z79.02 Long term (current) use of antithrombotics/antiplatelets; Z79.51 Long term (current) use of inhaled steroids; Z95.810 Presence of automatic (implantable) cardiac defibrillator; Z90.5 Acquired absence of kidney; Z68.30 Body mass index [BMI] 30.0-30.9, adult
CPT/HCPCS: 36415; 71045; 71046; 71250; 80053; 80162; 82945; 83605; 83615; 83735; 83880; 84157; 84484; 85025; 85610; 85730; 87070; 87205; 87636; 88108; 88305; 89050; 93005; 94640; 94760; 96374; 96375; 96376; 99285

== ENCOUNTER 2024-08-27 11:25 | Day surgery (SDC) | payer MEDICARE ==
[2024-08-27 11:51] VITALS: TEMP 97.4
--- NOTE | 2024-08-27 12:51 | P.PCN ---
Date of Procedure: 08/27/24 Operative Findings: Preoperative Diagnosis: Pleural effusion, right Postoperative Diagnosis: Same Procedure(s) Performed: Thoracentesis, right Anesthesia: local Surgeon: Eamon Sauceda Estimated Blood Loss (ml): 0 Pathology: other Condition: stable Disposition: home Operative Findings: A time out was performed and the chest x-ray was reviewed, the appropriate side was confirmed and marked. My hands were washed immediately prior to the p rocedure. I wore a surgical cap, mask with protective eyewear, sterile gown and sterile gloves throughout the procedure. The patient was prepped and draped in a sterile manner using chlorhexidine scrub after the appropriate level was percussed and confirmed by ultrasound. 1% lidocaine was used to anesthesize the skin, subcutaneous tissue, superior aspect of the rib periosteum and parietal pleura. A finder needle was then introduced over the superior aspect of the rib to locate the pleural fluid; 2colored fluid was aspirated at a depth of approximately 2 cm. A 10-blade scalpel was used to elsa the skin at the insertion site. The [id number] needle was then introduced through the skin incision into the pleural space using negative aspiration pressure and the red colometric indicator to confirm appropriate positioning of the needle. The thoracentesis catheter was then threaded without difficulty. 1400 ml of turbid colored fluid was removed without difficulty. The catheter was then removed. No immediate complications were noted during the procedure. A post-procedure chest x-ray is pending at the time of this note. The fluid will be sent for studies. Estimated blood loss is 0cc
[2024-08-27 13:03] VITALS: RESP 18
[2024-08-27 13:27] VITALS: BP 107/63
--- NOTE | 2024-08-27 13:55 | XR ---
EXAMINATION TYPE: XR chest 1V portable DATE OF EXAM: 08/27/2024 1:18 PM COMPARISON: 08/24/2024 CLINICAL INDICATION: Male, 84 years old with history of POST THORACENTESIS, , FINDINGS: Left anterior chest wall AICD generator with right atrial and right ventricular leads. Heart borderli ne enlarged. Mild perihilar dominance. Interval improvement of previous right pleural effusion but no w with a small to moderate-sized right pneumothorax measuring up to 2.9 cm at the lung base and 8 mm along the lateral upper chest. IMPRESSION: Interval right-sided thoracentesis with improvement in the pleural effusion. However, there is now a small to moderate pneumothorax measuring 2.9 cm at the base and 8 mm at the upper chest. Possibly gladys und 30% in size. [facility], , 08/27/2024 1:53 PM
[2024-08-27 14:42] VITALS: PULSE 81
[2024-08-27 19:21] LABS: Appearance,BF Slightly Cloudy (Clear)
[2024-08-27 21:09] LABS: Glucose, BF Source Pleural Fluid; Glucose, Body Fluid 112 mg/dL; LDH, Body Fluid Source Pleural Fluid; T. Protein, Body Fluid Source Pleural Fluid; Total Protein, Body Fluid 3440 mg/dL
== END 2024-08-27 14:09 | disposition home or self-care (01) ==
LOC: ORWHC2ENDO 11:25
PROVIDERS: ATTEND Internal Medicine Critical Care Medicine
DX: J90 Pleural effusion, not elsewhere classified (principal); Z88.5 Allergy status to narcotic agent; Z88.8 Allergy status to other drugs, medicaments and biological substances; Z88.6 Allergy status to analgesic agent
CPT/HCPCS: 32554; 71045; 82945; 83615; 84157; 89050

== ENCOUNTER 2024-08-28 13:39 | Inpatient (IN) | payer MEDICARE ==
[2024-08-28 14:19] LABS: Basophils # (A) 0.01 10*3/uL (0.00-0.10); Basophils % (A) 0.1 %; Eosinophils # (A) 0.01 10*3/uL (0.04-0.35); Eosinophils % (A) 0.1 %; HCT 37.7 % (39.6-50.0); HGB 12.9 g/dL (13.0-17.0); Lymphocytes # (A) 0.52 10*3/uL (0.90-5.00); Lymphocytes % (A) 5.9 %; MCH 29.3 pg (27.0-32.0); MCHC 34.2 g/dL (32.0-37.0); MCV 85.7 fL (80.0-97.0); Mean Platelet Volume 9.2 fL (9.5-12.2); Monocytes # (A) 0.16 10*3/uL (0.20-1.00); Monocytes % (A) 1.8 %; Neutrophils # (A) 8.14 10*3/uL (1.80-7.70); Neutrophils % (A) 91.8 %; Platelet Count 217 10*3/uL (140-440); RDW 14.1 % (11.5-14.5); WBC 8.87 10*3/uL (4.50-10.00)
[2024-08-28 14:29] LABS: INR 1.1 (<1.2); Partial Thromboplastin Time 25.7 sec (22.0-30.0); Prothrombin Time 11.6 sec (10.0-12.5)
[2024-08-28] MEDS ORDERED: ONDANSETRON 4 MG/2 ML VIAL IVP PRN (14:32)
[2024-08-28] MEDS ORDERED: NALOXONE 0.4 MG/ML 1 ML VIAL IV PRN (14:32)
--- NOTE | 2024-08-28 14:32 | ED ---
General Adult HPI - General Chief complaint: Shortness of Breath Stated complaint: ELIUD Time Seen by Provider: 08/28/24 13:43 Source: patient Mode of arrival: ambulatory Limitations: no limitations - History of Present Illness Initial comments: 84-year-old male presents emergency department with chief complaint of collapsed lung. Patient states that he had his fourth thoracentesis by and has been a recurrent issue. Patient has a collapsed lung. Patient was sent in for admission and further evaluation by pulmonary and psych patient denies any difficulty breathing at this time denies chest pain headache dizziness no other complaints. - Related Data Home Medications Medication Instructions Recorded Confirmed Losartan [Cozaar] 12.5 mg PO HS 11/26/15 08/24/24 Pravastatin Sodium [Pravachol] 80 mg PO HS 05/27/18 08/24/24 Albuterol Inhaler [Ventolin Hfa 2 puff INHALATION RT-Q4H PRN 07/27/24 08/24/24 Inhaler] Clopidogrel [Plavix] 75 mg PO DAILY 07/27/24 08/24/24 Digoxin [Digitek] 125 mcg PO Q2D 07/27/24 08/24/24 Fluticasone Propion/Salmeterol 2 puff INHALATION RT-BID 07/27/24 08/24/24 [Advair Hfa 45-21 Mcg Inhaler] Furosemide [Lasix] 40 mg PO DAILY 07/27/24 08/24/24 Levothyroxine Sodium [Synthroid] 25 mcg PO AC-BRKFST 07/27/24 08/24/24 Metoprolol Succinate [Toprol XL] 50 mg PO BID 07/27/24 08/24/24 Previous Rx's Medication Instructions Recorded Apixaban [Eliquis] 5 mg PO BID #60 tab 05/29/18 Allergies Allergy/AdvReac Type Severity Reaction Status Date / Time empagliflozin Allergy Rash/Hives Verified 08/28/24 13:51 [From Jardiance] acetaminophen [From [place]] AdvReac Nausea & Verified 08/28/24 13:51 Vomiting hydrocodone [From [place]] AdvReac Nausea & Verified 08/28/24 13:51 Vomiting Review of Systems ROS Statement: Those systems with pertinent positive or pertinent negative responses have been documented in the HPI. ROS Other: All systems not noted in ROS Statement are negative. 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 CERVICAL FUSION. TOTAL SUNITHA HIPS. UMB HERNIA. RT SCOPE X2. TOTAL RT KNEE. right kidney removed, right brain tumor removed. thoracentesis 07/28/24. Past Anesthesia/Blood Transfusion Reactions: No Reported Reaction Date of Last Stent Placement:: Jan 2024 Type of Cardiac Device: AICD Device Placement Date:: Jun 2024 Past Psychological History: No Psychological Hx Reported Smoking Status: Former smoker - Past Family History Mother Additional Family Medical History / Comment(s): LIVER/COLON CANCER. Father Family Medical History: Myocardial Infarction ([place]) Additional Family Medical History / Comment(s): CABG. AGE 83. General Exam Limitations: no limitations General appearance: alert, in no apparent distress Head exam: Present: atraumatic, normocephalic, normal inspection Eye exam: Present: normal appearance, PERRL, EOMI. Absent: scleral icterus, conjunctival injection, periorbital swelling ENT exam: Present: normal exam, normal oropharynx, mucous membranes moist Neck exam: Present: normal inspection, full ROM. Absent: tenderness, meningismus, lymphadenopathy Respiratory exam: Present: decreased breath sounds. Absent: normal lung sounds bilaterally, respiratory distress, wheezes, rales, rhonchi, stridor Cardiovascular Exam: Present: regular rate, normal rhythm, normal heart sounds. Absent: systolic murmur, diastolic murmur, rubs, gallop, clicks GI/Abdominal exam: Present: soft, normal bowel sounds. Absent: distended, tenderness, guarding, rebound, rigid Course Vital Signs 08/28/24 08/28/24 08/28/24 13:44 13:51 14:26 Temperature 98.2 F Pulse Rate 71 70 Respiratory 20 20 20 Rate Blood Pressure 124/76 133/80 O2 Sat by Pulse 96 95 Oximetry Medical Decision Making - Medical Decision Making Was pt. sent in by a medical professional or institution ([facility] Bird, [employer], urgent care, hospital, or [facility]...) When possible be specific @ -Information Support Project Manager Did you speak to anyone other than the patient for history (EMS, parent, family, police, friend...)? What history was obtained from this source @ -No Did you review nursing and triage notes (agree or disagree)? Why? @ -I reviewed and agree with nursing and triage notes Were old charts reviewed (outside hosp., previous admission, EMS record, old EKG, old radiological studies, urgent care reports/EKG's, [facility] records)? Report findings @ -No old charts were reviewed Differential Diagnosis (chest pain, altered mental status, abdominal pain women, abdominal pain men, vaginal bleeding, weakness, fever, dyspnea, syncope, headache, dizziness, GI bleed, back pain, seizure, CVA, palpatations, mental health, musculoskeletal)? @ -Differential Dyspnea: Coronary syndrome, arrhythmia, tamponade, asthma, COPD, pulmonary embolism, pneumonia, pneumothorax, pulmonary effusion, anaphylaxis, diabetic ketoacidosis, flailed chest, pulmonary contusion, diaphragmatic rupture, anemia, neuromuscular, this is not meant to be an all-inclusive list. EKG interpreted by me (3pts min.). @ -As above X-rays interpreted by me (1pt min.). @ -Chest x-ray shows right-sided pneumothorax CT interpreted by me (1pt min.). @ -None done U/S interpreted by me (1pt. min.). @ -None done What testing was considered but not performed or refused? (CT, X-rays, U/S, labs)? Why? @ -None What meds were considered but not given or refused? Why? @ -None Did you discuss the management of the patient with other professionals (pro fessionals i.e. MONTRELL Bird, [employer], lab, RT, psych nurse, social sciences instructor, laborer vegetable farm, teacher, adult parole officer, pillowcase turner)? Give summary @ -[Dr. Martino for admission, Dr. Alvarez regarding patient's current status. Was smoking cessation discussed for >3mins.? @ -No Was critical care preformed (if so, how long)? @ -No Were there social determinants of health that impacted care today? How? (Homelessness, low income, unemployed, alcoholism, drug addiction, transportation, low edu. Level, literacy, decrease access to med. care, prison, rehab)? @ -No Was there de-escalation of care discussed even if they declined (Discuss DNR or withdrawal of care, Hospice)? DNR status @ -No What co-morbidities impacted this encounter? (DM, HTN, Smoking, COPD, CAD, Cancer, CVA, ARF, Chemo, Hep., AIDS, mental health diagnosis, sleep apnea, morbid obesity)? @ -None Was patient admitted / discharged? Hospital course, mention meds given and route, prescriptions, significant lab abnormalities, going to OR and other pertinent info. @ -The patient was sent in by encoding clerk for recurrent pleural effusion, pneumothorax. He did not recommend any treatment including Thora vent or chest tube. Patient will have consults to pulmonology and cardiothoracic. Undiagnosed new problem with uncertain prognosis? @ -No Drug Therapy requiring intensive monitoring for toxicity (Heparin, Nitro, Insulin, Cardizem)? @ -No Were any procedures done? @ -No Diagnosis/symptom? @ -Recurrent pleural effusion, pneumothorax Acute, or Chronic, or Acute on Chronic? @ -Acute Uncomplicated (without systemic symptoms) or Complicated (systemic symptoms)? @ -Complicated Side effects of treatment? @ -No Exacerbation, Progression, or Severe Exacerbation? @ -No Poses a threat to life or bodily function? How? (Chest pain, [place], [place], pneumonia, PE, COPD, DKA, ARF, appy, cholecystitis, CVA, Diverticulitis, Homicidal, Suicidal, threat to staff... and all critical care pts) @ -Yes risk, threat to pulmonary function - Lab Data Result diagrams: 08/28/24 13:52 08/28/24 13:52 Lab Results 08/28/24 08/28/24 08/28/24 Range/Units 13:52 13:52 13:52 WBC 8.87 (4.50-10.00) 10*3/uL RBC 4.40 (4.40-5.60) 10*6/uL Hgb 12.9 L (13.0-17.0) g/dL Hct 37.7 L (39.6-50.0) % MCV 85.7 (80.0-97.0) fL MCH 29.3 (27.0-32.0) pg MCHC 34.2 (32.0-37.0) g/dL Plt Count 217 (140-440) 10*3/uL MPV 9.2 L (9.5-12.2) fL Immature Gran % (Auto) 0.3 % Neutrophils % 91.8 % Lymphocytes % 5.9 % Monocytes % 1.8 % Eosinophils % 0.1 % Basophils % 0.1 % Immature Gran # 0.03 (0.00-0.04) 10*3/uL Neutrophils # 8.14 H (1.80-7.70) 10*3/uL Lymphocytes # 0.52 L (0.90-5.00) 10*3/uL Monocytes # 0.16 L (0.20-1.00) 10*3/uL Eosinophils # 0.01 L (0.04-0.35) 10*3/uL Basophils # 0.01 (0.00-0.10) 10*3/uL PT 11.6 (10.0-12.5) sec INR 1.1 (<1.2) APTT 25.7 (22.0-30.0) sec Sodium 137 (137-145) mmol/L Potassium 4.8 (3.5-5.1) mmol/L Chloride 97 L (98-107) mmol/L Carbon Dioxide 30 (22-30) mmol/L Anion Gap 10 mmol/L BUN 24 H (9-20) mg/dL Creatinine 1.36 H (0.66-1.25) mg/dL Est GFR (CKD-EPI)AfAm 56 (>60 ml/min/1.73 sqM) Est GFR (CKD-EPI)NonAf 48 (>60 ml/min/1.73 sqM) Glucose 155 H (74-99) mg/dL Calcium 9.3 (8.4-10.2) mg/dL Total Bilirubin 0.6 (0.2-1.3) mg/dL AST 28 (17-59) U/L ALT 16 (4-49) U/L Alkaline Phosphatase 82 (38-126) U/L Total Protein 6.8 (6.3-8.2) g/dL Albumin 4.1 (3.5-5.0) g/dL Disposition Clinical Impression: Pleural effusion on right, Pneumothorax Disposition: ADMITTED IP TO THIS HOSP Condition: Fair Referrals: Messi Martino MD [Primary Care Provider] - 1-2 days Time of Disposition: 14:32
[2024-08-28 14:33] LABS: ALT 16 U/L (4-49); AST 28 U/L (17-59); African American GFR (CKD) 56 (>60 ml/min/1.73 sqM); Albumin 4.1 g/dL (3.5-5.0); Alkaline Phosphatase 82 U/L (38-126); Anion Gap 10 mmol/L; Blood Urea Nitrogen 24 mg/dL (9-20); Calcium 9.3 mg/dL (8.4-10.2); Carbon Dioxide 30 mmol/L (22-30); Chloride 97 mmol/L (98-107); Glucose 155 mg/dL (74-99); Non-African American GFR(CKD) 48 (>60 ml/min/1.73 sqM); Potassium 4.8 mmol/L (3.5-5.1); Sodium 137 mmol/L (137-145); Total Bilirubin 0.6 mg/dL (0.2-1.3); Total Protein 6.8 g/dL (6.3-8.2)
--- NOTE | 2024-08-28 16:03 | XR ---
EXAMINATION TYPE: XR chest 2V DATE OF EXAM: 08/28/2024 2:42 PM COMPARISON: Multiple radiographs, with the most recent on 08/27/2024 TECHNIQUE: XR chest 2V Frontal and lateral views of the chest. CLINICAL INDICATION:Male, 84 years old with history of Pneumothorax; FINDINGS: Lungs/Pleura: No focal consolidation. Left lung is clear. Small right pleural effusion. Increasing mo derate to large size right pneumothorax (50%). There is some surrounding atelectasis of the right mid dle and lower lobes. Pulmonary vascularity: Unremarkable. Heart/mediastinum: Cardiomediastinal silhouette is unremarkable. Atherosclerotic calcifications are seen in the aorta. Single-lead cardiac conduction device overlying the left hemithorax with lead proj ecting over the right ventricle. Musculoskeletal: No acute osseous pathology. IMPRESSION: 1. Increasing moderate to large size right pneumothorax (50%) from prior radiograph. 2. Small right pleural effusion. [facility], , 08/28/2024 4:01 PM
[2024-08-28] MEDS ORDERED: ALBUTEROL NEBULIZED 2.5 MG/3 ML INHALATION PRN (16:32)
[2024-08-28] MEDS: ALBUTEROL NEBULIZED 2.5 MG/3 ML INHALATION SCH (19:28)
[2024-08-28] MEDS: SYMBICORT 80-4.5 MCG INHALER INHALATION SCH (19:29)
[2024-08-28] MEDS: LOSARTAN 25 MG TAB PO SCH (19:51)
[2024-08-28] MEDS: PRAVASTATIN SODIUM 80 MG TAB PO SCH (19:51)
[2024-08-28] MEDS: METOPROLOL SUCCINATE (ER) 50 MG TAB.ER.24H PO SCH (19:51)
[2024-08-28] MEDS: ACETAMINOPHEN TAB 325 MG TAB PO PRN (23:50)
--- NOTE | 2024-08-29 04:52 | P.CNPUL ---
History of Present Illness Consult date: 08/29/24 Requesting physician: Tristen Almean Reason for consult: other (Right-sided hydropneumothorax) Chief complaint: Sent in from the pulmonary office History of present illness: Patient is an 84-year-old male with past medical history significant for metastatic renal cell carcinoma with previous right-sided nephrectomy, ischemic cardiomyopathy with AICD/pacemaker, hypertension, hyperlipidemia, obesity, severe obstructive sleep apnea, moderate persistent bronchial asthma, coronary artery disease with previous PCI/stenting, chronic atrial fibrillation, asbestosis, recurrent right-sided pleural effusion. Patient has underwent multiple previous right-sided thoracentesis. Previous pleural fluid technically transudate based on lights criteria. Cytology has been unremarkable for malignant cells. Most recently, right-sided thoracentesis performed on 08/27/[address] Sauceda in the outpatient [facility]. A total of 1.4 L was removed from the pleural space. Fluid cytology still pending. Follow-up chest x-ray showing a right-sided hydropneumothorax. Findings thought to represent trapped lung. Patient followed up in the pulmonary office yesterday. Repeat chest x-ray did not show any improvement in the right-sided pneumothorax. Patient was directed to emergency department. Cardiothoracic surgery consulted for possible Pleurx catheter insertions versus thoracoscopic surgery and pleural biopsies. Patient currently being evaluated on the observation unit. Follow-up chest x-ray showing increasing moderate to large size right-sided hydropneumothorax estimated at 50% with air-fluid level. No thoracotomy tube was placed. Patient is currently on room air. SpO2 recorded at 95%. Reports increased work of breathing with exertion. No notable tracheal shift. No significant chest pain. Nontachycardic and blood pressure is stable. CBC: WBC count 8.9, hemoglobin 13, platelets 217. Coagulation profile with a PT of 11.6, INR 1.1, APTT 25. CMP: Sodium 137, potassium 4.8, chloride 97, serum bicarb 30, BUN 24, creatinine 1.36, glucose 155. Vital signs: Afebrile, heart rate 67 bpm, blood pressure 130/78 mmHg, SpO2 recorded at 95% on room air. Review of Systems REVIEW OF SYSTEMS: CONSTITUTIONAL: Denies any recent significant weight loss or weight gain. EYES: Denies change in vision. EARS, NOSE, MOUTH, THROAT: Denies headaches, denies sore throat. CARDIOVASCULAR: Denies chest pain, palpitations or syncopal episodes. RESPIRATORY: Endorses increased work of breathing. Denies any chest pain, coughing, hemoptysis. GASTROINTESTINAL: Denies change in appetite, abdominal pain, nausea and vomiting, or diarrhea GENITOURINARY: Denies hematuria, denies infections. MUSKULOSKELETAL: Denies pain, denies swelling. INTEGUMENTARY: Denies rash, denies eczema. NEUROLOGICAL: Denies recent memory loss, no recent seizure activity. PSYCHIATRIC: Denies anxiety, denies depression. 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 CERVICAL FUSION. TOTAL SUNITHA HIPS. UMB HERNIA. RT SCOPE X2. TOTAL RT KNEE. right kidney removed, right brain tumor removed. thoracentesis 07/28/24. Past Anesthesia/Blood Transfusion Reactions: No Reported Reaction Date of Last Stent Placement:: Jan 2024 Type of Cardiac Device: AICD Device Placement Date:: Jun 2024 Past Psychological History: No Psychological Hx Reported Smoking Status: Former smoker Past Alcohol Use History: None Reported Additional Past Alcohol Use History / Comment(s): SMOKED 15 YEARS EST, 1 PPD, QUIT age 42 Past Drug Use History: None Reported - Past Family History Mother Additional Family Medical History / Comment(s): LIVER/COLON CANCER. Father Family Medical History: Myocardial Infarction ([place]) Additional Family Medical History / Comment(s): CABG. AGE 83. Medications and Allergies Home Medications Medication Instructions Recorded Confirmed Type Losartan [Cozaar] 12.5 mg PO HS 11/26/15 08/28/24 History Pravastatin Sodium [Pravachol] 80 mg PO HS 05/27/18 08/28/24 History Apixaban [Eliquis] 5 mg PO BID #60 tab 05/29/18 08/28/24 Rx Albuterol Inhaler [Ventolin Hfa 2 puff INHALATION RT-Q4H PRN 07/27/24 08/28/24 History Inhaler] Clopidogrel [Plavix] 75 mg PO DAILY 07/27/24 08/28/24 History Digoxin [Digitek] 125 mcg PO Q2D 07/27/24 08/28/24 History Fluticasone Propion/Salmeterol 1 puff INHALATION RT-BID 07/27/24 08/28/24 History [Advair Hfa 45-21 Mcg Inhaler] Levothyroxine Sodium [Synthroid] 25 mcg PO AC-BRKFST 07/27/24 08/28/24 History Metoprolol Succinate [Toprol XL] 50 mg PO BID 07/27/24 08/28/24 History Albuterol Nebulized [Ventolin 2.5 mg INHALATION RT-TID 08/28/24 08/28/24 History Nebulized] Furosemide [Lasix] 40 mg PO DAILY 08/28/24 08/28/24 History predniSONE See Taper PO DAILY 08/28/24 08/28/24 History Allergies Allergy/AdvReac Type Severity Reaction Status Date / Time empagliflozin Allergy Rash/Hives Verified 08/28/24 15:21 [From Jardiance] acetaminophen [From [place]] AdvReac Nausea & Verified 08/28/24 15:21 Vomiting hydrocodone [From [place]] AdvReac Nausea & Verified 08/28/24 15:21 Vomiting Physical Exam Vitals: Vital Signs Temp Pulse Pulse Resp BP BP Pulse Ox 08/29/24 03:05 95 08/29/24 02:07 97.5 F L 67 130/78 90 L 08/28/24 19:43 98.1 F 89 16 97/58 96 08/28/24 19:39 76 08/28/24 19:29 80 08/28/24 16:14 98.1 F 60 18 116/52 98 08/28/24 15:29 98.5 F 60 19 115/90 95 08/28/24 14:26 20 08/28/24 13:51 70 20 133/80 95 08/28/24 13:44 98.2 F 71 20 124/76 96 Intake and Output 08/28/24 08/28/24 08/29/24 14:59 22:59 06:59 Other: Voiding Method Toilet Toilet # Voids 1 Weight 95.254 kg 95.254 kg GENERAL EXAM: Alert, 84-year-old male, on room air, speaking complete sentences without any acute respiratory distress. HEAD: Normocephalic and atraumatic EYES: Normal reaction of pupils, equal size. NOSE: Clear with pink turbinates. THROAT: No erythema or exudates. No tracheal shift. NECK: No masses, no JVD. CHEST: No chest wall deformity. No subcutaneous emphysema or crepitus. LUNGS: Right chest hyperresonance with percussion and diminished right lung sounds on auscultation. no conversational dyspnea or accessory muscle use.. CVS: S1 and S2 normal with soft systolic murmur, irregular rhythm. No extra heart sounds ABDOMEN: No hepatosplenomegaly, active bowel sounds, no guarding or rigidity. SPINE: No scoliosis or deformity SKIN: No rashes CENTRAL NERVOUS SYSTEM: No focal deficits, tone is normal in all 4 extremities. EXTREMITIES: There is no peripheral edema, clubbing, or cyanosis. Peripheral pulses are intact. Results - Laboratory Findings CBC and BMP: 08/28/24 13:52 08/28/24 13:52 PT/INR, D-dimer PT 11.6 sec (10.0-12.5) 08/28/24 13:52 INR 1.1 (<1.2) 08/28/24 13:52 Abnormal lab findings: Abnormal Labs 08/28/24 08/28/24 13:52 13:52 Hgb 12.9 L Hct 37.7 L MPV 9.2 L Neutrophils # 8.14 H Lymphocytes # 0.52 L Monocytes # 0.16 L Eosinophils # 0.01 L Chloride 97 L BUN 24 H Creatinine 1.36 H Glucose 155 H - Diagnostic Findings Chest x-ray: image reviewed Assessment and Plan Assessment: Right-sided hydropneumothorax, iatrogenic versus trapped lung, repeat chest x- ray showing large, approximately 50% pneumothorax. Initial management in the ED was conservative without thoracotomy tube or ThoraVent placement. Acute dyspnea, secondary to above Recurrent right-sided pleural effusion with multiple previous thoracentesis History of renal cell carcinoma with previous right-sided nephrectomy Acute kidney injury History of asbestosis History of ischemic cardiomyopathy with AICD/pacemaker Coronary artery disease with previous PCI/stenting Chronic atrial fibrillation, maintained on long-term anticoagulation with Eliquis Obesity, with a BMI of 31 kg/m Severe obstructive sleep apnea, AHI 44, nontolerant of CPAP Moderate persistent bronchial asthma, stable and inactive Plan: Initial management of patient's right-sided hydropneumothorax was conservative in the ED, no thoracotomy tube or ThoraVent was placed. Cardiothoracic surgery consulted for possible Pleurx catheter insertion or thoracoscopy surgery with pleural biopsy, or thoracotomy tube placement. Chest x-ray showing a rather large 50% right-sided pneumothorax. Patient will l ikely require right-sided chest tube for ThoraVent Currently on room air. No respiratory distress noted. No tension-like features. Encourage incentive spirometer Pleural fluid cytology pending; previously pleural fluid was cytologically unremarkable for malignant cells. Case will be reviewed with Dr. Alvarez, further recommendations will be forthcoming I have personally seen and examined the patient, performed the documentation and the assessment and plan as written. Number of minutes spent on the visit:20 This dictation was produced using [employer] dictation software please excuse grammatical errors Time with Patient: Greater than 30
[2024-08-29 05:25] LABS: Basophils # (A) 0.02 10*3/uL (0.00-0.10); Basophils % (A) 0.2 %; Eosinophils # (A) 0.07 10*3/uL (0.04-0.35); Eosinophils % (A) 0.8 %; HCT 34.6 % (39.6-50.0); HGB 11.7 g/dL (13.0-17.0); Lymphocytes # (A) 1.19 10*3/uL (0.90-5.00); MCH 28.9 pg (27.0-32.0); MCHC 33.8 g/dL (32.0-37.0); MCV 85.4 fL (80.0-97.0); Mean Platelet Volume 9.3 fL (9.5-12.2); Monocytes # (A) 0.79 10*3/uL (0.20-1.00); Monocytes % (A) 9.3 %; Neutrophils # (A) 6.36 10*3/uL (1.80-7.70); Platelet Count 195 10*3/uL (140-440); RBC 4.05 10*6/uL (4.40-5.60); RDW 14.3 % (11.5-14.5); WBC 8.49 10*3/uL (4.50-10.00)
[2024-08-29 05:38] LABS: ALT 13 U/L (4-49); AST 20 U/L (17-59); African American GFR (CKD) 68 (>60 ml/min/1.73 sqM); Albumin 3.6 g/dL (3.5-5.0); Alkaline Phosphatase 77 U/L (38-126); Anion Gap 6 mmol/L; Blood Urea Nitrogen 26 mg/dL (9-20); Calcium 9.2 mg/dL (8.4-10.2); Carbon Dioxide 30 mmol/L (22-30); Chloride 97 mmol/L (98-107); Glucose 112 mg/dL (74-99); Non-African American GFR(CKD) 59 (>60 ml/min/1.73 sqM); Potassium 3.6 mmol/L (3.5-5.1); Sodium 133 mmol/L (137-145); Total Bilirubin 0.5 mg/dL (0.2-1.3); Total Protein 5.9 g/dL (6.3-8.2)
[2024-08-29] MEDS: LEVOTHYROXINE 25 MCG TAB PO SCH (06:14)
[2024-08-29] MEDS: POTASSIUM CHLORIDE 10 MEQ in WATER FOR INJECTION 1 100ML.BAG IVPB SCH (06:25)
--- NOTE | 2024-08-29 06:50 | XR ---
EXAM: XR Chest, 1 View CLINICAL HISTORY: ITS.REASON XR Reason: f/u right sided hydropneumothorax TECHNIQUE: Frontal view of the chest. COMPARISON: X-ray dated 08/28/2024. FINDINGS: Lungs: Partial atelectasis of the right middle and right lower lobes. No consolidation. Pleural space: Stable right-sided pneumothorax. The right costophrenic angle is excluded from the film. No definitive right-sided pleural effusion. Heart: Mild enlargement of the cardiac silhouette. Mediastinum: Unremarkable. Normal mediastinal contour. Bones/joints: Degenerative changes are seen in the spine and shoulders. No acute fracture. Vasculature: Calcifications overlie the aorta. Tubes, lines and devices: Cardiac conduction device overlies the left chest with single lead overlying the cardiac silhouette. IMPRESSION: Stable right-sided pneumothorax. No mediastinal shift.
[2024-08-29] MEDS: CLOPIDOGREL 75 MG TAB PO SCH (08:22)
[2024-08-29] MEDS: FUROSEMIDE 40 MG TAB PO SCH (08:22)
[2024-08-29] MEDS: predniSONE 10 MG TAB PO SCH (08:22)
--- NOTE | 2024-08-29 09:26 | P.GSCN ---
History of Present Illness Consult date: 08/29/24 Reason for Consult: Recurrent right pleural effusion Requesting physician: Eamon Sauceda History of present illness: This is an 84-year-old gentleman who follows on an outpatient basis for his primary care with Dr. Martino, and follows with Dr. Sauceda for his pulmonary care. He has a past medical history significant for hypertension, hyperlipidemia, hypothyroid, chronic atrial fibrillation on Eliquis for antico agulation, metastatic renal cell carcinoma with previous right-sided nephrectomy, ischemic cardiomyopathy with an AICD/pacemaker, congestive heart failure, severe obstructive sleep apnea noncompliant with CPAP use, obesity with a BMI of 31.0 kg/m, asthma, coronary artery disease with previous PCI/stenting in December 2023, history of myocardial infarction in December 2023, asbestosis, history of brain tumor, osteoarthritis, recurrent right pleural effusion status post 4 previous thoracentesis on the right side and previous tobacco dependence, quit smoking 40 years ago. Thoracentesis cytology results from July 30, 2024, was negative for malignancy. Cytology results from thoracentesis completed yesterday August 27, 2024 remain pending, and the cytology results from his previous thoracentesis completed at [facility] are unavailable at this time. Recently, the patient has had complaints of progressive shortness of breath over the last 2 weeks. He reports he is unable to lay flat at night to sleep and has been sleeping upright. He denies any recent fever, chills, nausea, vomiting, diarrhea, constipation, hemoptysis, hematemesis, chest pain, chest pressure, presyncope or syncope. The patient underwent a right sided thoracentesis on August 27, [address] Sauceda in the outpatient [facility]. A total of 1.4 L was drained from the right pleural space. A follow-up chest x-ray was completed which showed a right sided small to moderate pneumothorax around 30% in size. Subsequently, due to the findings of the right-sided pneumothorax the patient presented to the emergency department here at [facility] for further evaluation and treatment r ecommendations. Due to the patient's history of recurrent right-sided pleural effusions and subsequent right-sided thoracentesis, Dr. Miller from cardiothoracic surgery was consulted for possible Pleurx catheter insertion versus thoracoscopic surgery and pleural biopsies. A repeat chest x-ray was completed this morning with the report showing a stable right-sided pneumothorax. The patient is currently on 3 L nasal cannula with oxygen saturations 95% and he is achieving 1850 mL on his incentive spirometry with encouragement. He denies any complaints of pain or shortness of breath at this time, although he reports he is still unable to lay flat. The patient underwent a CT scan of the chest on July 27, 2024 with the impression showing a right small to moderate pleural effusion without definitive nodularity to the pleura to suggest malignant effusion, few prominent nonenlarged by CT criteria lymph nodes in the mediastinum, groundglass opacity in the superior segment of the left lower lobe medially, correlate for pneumonia, cardiomegaly, moderate to severe coronary artery atherosclerosis, moderate aortic valve calcifications. Laboratory results today show a WBC count of 8.49, hemoglobin 11.7, hematocrit 34.6, platelets 195, PT 11.6, INR 1.1, PTT 25.7, sodium 133, potassium 3.6, chloride 97, BUN 26, creatinine 1.16, glucose 112, AST 20, ALT 13, and albumin 3.6. Review of Systems A review of systems was completed and negative except as mentioned in the HPI. Past Medical History Past Medical History: Atrial Fibrillation, Asthma, Coronary Artery Disease (CAD), Cancer, Heart Failure, Hyperlipidemia, Hypertension, Myocardial Infarction (CT), Osteoarthritis (OA), Sleep Apnea/CPAP/BIPAP, Thyroid Disorder Additional Past Medical History / Comment(s): hx right kidney ca, metastasized to brain; no CPAP; right side pleural effusion Last Myocardial Infarction Date:: Jan 2024 History of Any Multi-Drug Resistant Organisms: None Reported Past Surgical History: AICD, Back Surgery, Heart Catheterization, Heart C atheterization With Stent, Hernia Repair, Joint Replacement, Orthopedic Surgery, Tonsillectomy Additional Past Surgical History / Comment(s): EXC CATARACTS. CERVICAL FUSION. T OTAL SUNITHA HIPS. UMB HERNIA. RT SCOPE X2. TOTAL RT KNEE. right kidney removed, right brain tumor removed. thoracentesis 07/28/24. Past Anesthesia/Blood Transfusion Reactions: No Reported Reaction Date of Last Stent Placement:: Jan 2024 Type of Cardiac Device: AICD Device Placement Date:: Jun 2024 Past Psychological History: No Psychological Hx Reported Smoking Status: Former smoker Past Alcohol Use History: None Reported (Quit EtOH use in December 2023) Additional Past Alcohol Use History / Comment(s): SMOKED 15 YEARS EST, 1 PPD, QUIT age 42 Past Drug Use History: None Reported - Past Family History Mother Family Medical History: Cancer Additional Family Medical History / Comment(s): LIVER/COLON CANCER. Father Family Medical History: Myocardial Infarction (CT) Additional Family Medical History / Comment(s): CABG. AGE 94. Medications and Allergies Home Medications Medication Instructions Recorded Confirmed Type Losartan [Cozaar] 12.5 mg PO HS 11/26/15 08/28/24 History Pravastatin Sodium [Pravachol] 80 mg PO HS 05/27/18 08/28/24 History Apixaban [Eliquis] 5 mg PO BID #60 tab 05/29/18 08/28/24 Rx Albuterol Inhaler [Ventolin Hfa 2 puff INHALATION RT-Q4H PRN 07/27/24 08/28/24 History Inhaler] Clopidogrel [Plavix] 75 mg PO DAILY 07/27/24 08/28/24 History Digoxin [Digitek] 125 mcg PO Q2D 07/27/24 08/28/24 History Fluticasone Propion/Salmeterol 1 puff INHALATION RT-BID 07/27/24 08/28/24 History [Advair Hfa 45-21 Mcg Inhaler] Levothyroxine Sodium [Synthroid] 25 mcg PO AC-BRKFST 07/27/24 08/28/24 History Metoprolol Succinate [Toprol XL] 50 mg PO BID 07/27/24 08/28/24 History Albuterol Nebulized [Ventolin 2.5 mg INHALATION RT-TID 08/28/24 08/28/24 History Nebulized] Furosemide [Lasix] 40 mg PO DAILY 08/28/24 08/28/24 History predniSONE See Taper PO DAILY 08/28/24 08/28/24 History Allergies Allergy/AdvReac Type Severity Reaction Status Date / Time empagliflozin Allergy Rash/Hives Verified 08/28/24 15:21 [From [place]] acetaminophen [From [place]] AdvReac Nausea & Verified 08/28/24 15:21 Vomiting hydrocodone [From [place]] AdvReac Nausea & Verified 08/28/24 15:21 Vomiting Surgical - Exam Vital Signs Temp Pulse Resp BP Pulse Ox 98.2 F 71 20 124/76 96 08/28/24 13:44 08/28/24 13:44 08/28/24 13:44 08/28/24 13:44 08/28/24 13:44 - General well developed, well nourished, no distress, no pain, chronically ill, obese - Eyes PERRL, normal ocular movement, no pale, no icteric - ENT normal pinna, normal nares, normal mucosa, no hearing loss, no congestion, poor fpc - Neck Neck is supple, no lymphadenopathy. no masses, no bruits, trachea midline, no venous distension - Respiratory Lung sounds essentially clear throughout, diminished to his right lobes, few expiratory wheezes throughout. No wheezes or rhonchi. Respirations are symmetrical and nonlabored. Oxygen saturation 95% on 3 L nasal cannula. Achieving 1850 mL on his incentive spirometry with encouragement. - Cardiovascular Irregular rhythm and controlled rate. S1 and S2 present, negative for S3, or gallop. Soft systolic murmur 2/6 heard best to his left sternal border. - Abdomen Abdomen is soft, nontender and nondistended. Active bowel sounds present all 4 abdominal quadrants. No guarding or rigidity. No organomegaly appreciated. - Genitourinary Deferred - Rectum Deferred - Integumentary Skin is warm and dry. No clubbing or cyanosis is present. No edema present. no rash, no growths, no abnormal pigmentation - Neurologic No focal deficits. normal coordination, normal sensation - Musculoskeletal Moves all 4 extremities with equal strength bilateral. normal gait, normal posture - Psychiatric oriented to time, oriented to person, oriented to place, speech is normal, m liberty intact Results - Labs 08/29/24 04:54 08/29/24 04:54 Abnormal Lab Results - Last 24 Hours (Table) 08/28/24 08/28/24 08/29/24 Range/Units 13:52 13:52 04:54 RBC 4.05 L (4.40-5.60) 10*6/uL Hgb 12.9 L 11.7 L (13.0-17.0) g/dL Hct 37.7 L 34.6 L (39.6-50.0) % MPV 9.2 L 9.3 L (9.5-12.2) fL Immature Gran # 0.06 H (0.00-0.04) 10*3/uL Neutrophils # 8.14 H (1.80-7.70) 10*3/uL Lymphocytes # 0.52 L (0.90-5.00) 10*3/uL Monocytes # 0.16 L (0.20-1.00) 10*3/uL Eosinophils # 0.01 L (0.04-0.35) 10*3/uL Sodium (137-145) mmol/L Chloride 97 L (98-107) mmol/L BUN 24 H (9-20) mg/dL Creatinine 1.36 H (0.66-1.25) mg/dL Glucose 155 H (74-99) mg/dL Total Protein (6.3-8.2) g/dL 08/29/24 Range/Units 04:54 RBC (4.40-5.60) 10*6/uL Hgb (13.0-17.0) g/dL Hct (39.6-50.0) % MPV (9.5-12.2) fL Immature Gran # (0.00-0.04) 10*3/uL Neutrophils # (1.80-7.70) 10*3/uL Lymphocytes # (0.90-5.00) 10*3/uL Monocytes # (0.20-1.00) 10*3/uL Eosinophils # (0.04-0.35) 10*3/uL Sodium 133 L (137-145) mmol/L Chloride 97 L (98-107) mmol/L BUN 26 H (9-20) mg/dL Creatinine (0.66-1.25) mg/dL Glucose 112 H (74-99) mg/dL Total Protein 5.9 L (6.3-8.2) g/dL Diabetes panel 08/28/24 08/29/24 Range/Units 13:52 04:54 Sodium 137 133 L (137-145) mmol/L Potassium 4.8 3.6 (3.5-5.1) mmol/L Chloride 97 L 97 L (98-107) mmol/L Carbon Dioxide 30 30 (22-30) mmol/L BUN 24 H 26 H (9-20) mg/dL Creatinine 1.36 H 1.16 (0.66-1.25) mg/dL Glucose 155 H 112 H (74-99) mg/dL Calcium 9.3 9.2 (8.4-10.2) mg/dL AST 28 20 (17-59) U/L ALT 16 13 (4-49) U/L Alkaline Phosphatase 82 77 (38-126) U/L Total Protein 6.8 5.9 L (6.3-8.2) g/dL Albumin 4.1 3.6 (3.5-5.0) g/dL Calcium panel 08/28/24 08/29/24 Range/Units 13:52 04:54 Calcium 9.3 9.2 (8.4-10.2) mg/dL Albumin 4.1 3.6 (3.5-5.0) g/dL Pituitary panel 08/28/24 08/29/24 Range/Units 13:52 04:54 Sodium 137 133 L (137-145) mmol/L Potassium 4.8 3.6 (3.5-5.1) mmol/L Chloride 97 L 97 L (98-107) mmol/L Carbon Dioxide 30 30 (22-30) mmol/L BUN 24 H 26 H (9-20) mg/dL Creatinine 1.36 H 1.16 (0.66-1.25) mg/dL Glucose 155 H 112 H (74-99) mg/dL Calcium 9.3 9.2 (8.4-10.2) mg/dL Adrenal panel 08/28/24 08/29/24 Range/Units 13:52 04:54 Sodium 137 133 L (137-145) mmol/L Potassium 4.8 3.6 (3.5-5.1) mmol/L Chloride 97 L 97 L (98-107) mmol/L Carbon Dioxide 30 30 (22-30) mmol/L BUN 24 H 26 H (9-20) mg/dL Creatinine 1.36 H 1.16 (0.66-1.25) mg/dL Glucose 155 H 112 H (74-99) mg/dL Calcium 9.3 9.2 (8.4-10.2) mg/dL Total Bilirubin 0.6 0.5 (0.2-1.3) mg/dL AST 28 20 (17-59) U/L ALT 16 13 (4-49) U/L Alkaline Phosphatase 82 77 (38-126) U/L Total Protein 6.8 5.9 L (6.3-8.2) g/dL Albumin 4.1 3.6 (3.5-5.0) g/dL - Imaging Chest x-ray: report reviewed, image reviewed Assessment and Plan Assessment: Right-sided pneumothorax, status post right-sided thoracentesis Recurrent right-sided pleural effusion with 4 previous thoracentesis right side, Cytology from July 2024 negative for malignancy History of renal cell carcinoma with previous right-sided nephrectomy History of brain tumor, status post surgery with subsequent removal Coronary artery disease with previous PCI/stent in January 2024 History of myocardial infarction Hypertension Hyperlipidemia Hypothyroid Chronic atrial fibrillation on Eliquis for anticoagulation Ischemic cardiomyopathy status post AICD/pacemaker placement Congestive heart failure Asbestosis Severe obstructive sleep apnea, noncompliant with CPAP use Obesity with a BMI of 31.0 kg/m History of asthma Osteoarthritis Remote history of nicotine dependence, quit smoking 40 years ago Plan: The patient was seen and examined at his bedside on the first floor observation unit. His chart and diagnostics reviewed. His case was discussed in detail with Dr. Breezy Miller from cardiothoracic surgery. Patient is currently sitting up to the bedside chair, and is in no acute apparent distress. His chest x-ray this morning shows a stable right-sided pneumothorax. If the patient was to undergo a thoracoscopic surgery with biopsies his Plavix would need to be held for 5 to 7 days prior to surgery. The patient's last dose of Eliquis was on August 28, 2024. Continue to encourage use of incentive spirometry 10 times every hour while awake. Once Dr. Miller reviews the patient chart and diagnostics more recommendations to follow. Medical management of other comorbidities per Dr. Martino and per pulmonary/critical care medicine. More re commendations to follow based on patient's clinical course. Thank you Dr. Sauceda for this consult and we look forward to working with you in the care of this patient. I have personally seen and examined the patient, performed the documentation and the assessment and plan as written. Number of minutes spent on the visit: 30. DENNISE Willams
--- NOTE | 2024-08-29 11:32 | XR ---
EXAMINATION TYPE: XR chest 1V portable DATE OF EXAM: 08/29/2024 11:20 AM COMPARISON: 08/29/2024 CLINICAL INDICATION: Male, 84 years old with history of thoravent placement, , FINDINGS: Left anterior chest wall ICD generator with right ventricular lead. Heart mildly enlarged. Interstiti al density. Interval placement of right-sided Thoravent device. Previous pneumothorax appears to have resolved. There is a small right pleural effusion. IMPRESSION: 1. Interval placement of right-sided Thoravent device with reexpansion of the right lung. 2. Correlate for mild CHF with pulmonary vascular congestion. 3. Small right pleural effusion with adjacent atelectasis and/or consolidation. [facility], , 08/29/2024 11:30 AM
--- NOTE | 2024-08-30 07:21 | XR ---
EXAMINATION TYPE: XR chest 2V DATE OF EXAM: 08/30/2024 5:16 AM COMPARISON: 08/29/2024 CLINICAL INDICATION: Male, 84 years old with history of Right-sided pneumothorax, , TECHNIQUE: PA and lateral views FINDINGS: Left anterior chest wall AICD generator with right ventricular lead. A right-sided pleural catheter i s present. No appreciable pneumothorax. Heart borderline to mildly enlarged. Mild interstitial densit y persists. Small right pleural effusion remains. Patchy right basilar opacity is improving. IMPRESSION: 1. Right-sided Thoravent catheter in place. No appreciable pneumothorax. 2. Similar interstitial change, possible mild pulmonary vascular congestion. 3. Similar small right pleural effusion but with improving adjacent atelectasis and/or consolidation. [facility], , 08/30/2024 7:19 AM
--- NOTE | 2024-08-30 08:52 | P.PN ---
Subjective Progress Note Date: 08/30/24 Principal diagnosis: Right pneumothorax, recurrent right pleural effusion. past medical history significant for hypertension, hyperlipidemia, hypothyroid, chronic atrial fibrillation on Eliquis for anticoagulation, metastatic renal cell carcinoma with previous right-sided nephrectomy, ischemic cardiomyopathy with an AICD/pacemaker, congestive heart failure, severe obstructive sleep apnea noncompliant with CPAP use, obesity with a BMI of 31.0 kg/m, asthma, coronary artery disease with previous PCI/stenting in December 2023, history of myocardial infarction in December 2023, asbestosis, history of brain tumor, osteoarthritis, recurrent right pleural effusion status post 4 previous thoracentesis on the right side and previous tobacco dependence, quit smoking 40 years ago. POD #1 placement of right Thoravent The patient was seen and examined in follow-up today August 30, 2024 at his bedside on the first floor observation unit. The patient is currently sitting up to the bedside chair, is awake, alert, oriented x 3 and is in no acute apparent distress. He denies any complaints of pain or shortness of breath at this time. He has been afebrile in the last 24 hours. Oxygen saturations are 98% on room air and he is achieving 2500 mL on his incentive spirometry. Right Thora vent remains in place to low continuous wall suction -20 cm H2O. No airleak is present. Draining thin serosanguineous drainage with 120 mL output in the last 24 hours. Remote telemetry is showing atrial fibrillation with occasional V paced rhythm heart rate 54 bpm. Chest x-ray results reviewed. Objective - Vital Signs Vital signs: Vital Signs Temp 97.9 F 08/30/24 02:00 Pulse 85 08/30/24 02:00 Resp 16 08/29/24 14:00 BP 120/72 08/30/24 02:00 Pulse Ox 98 08/29/24 14:00 FiO2 Intake & Output 08/29/24 08/30/24 08/30/24 18:59 06:59 18:59 Intake Total 850 Output Total 1800 Balance -950 Intake: IV 200 Potassium Chloride 10 meq 200 In Water For Injection 1 100ml.bag @ 100 mls/hr IVPB Q1H BRODY Rx#: [id number] Oral 650 Output: Urine 1800 Other: Voiding Method Toilet Toilet # Voids 1 # Bowel Movements 1 - Exam CONSTITUTIONAL: Appears comfortable, cooperative, no acute distress RESPIRATORY: Lungs sounds diminished bilaterally. Respirations symmetrical, nonlabored. Currently on room air with oxygen saturation 98%. Able to achieve 2500 mL on incentive spirometry. Strong cough. CARDIOVASCULAR: S1, S2 present. Irregular rate and rhythm, atrial fibrillation rhythm on telemetry. Palpable peripheral pulses bilaterally. No edema present. No calf pain or tenderness noted. SCDs present. GASTROINTESTINAL: Abdomen soft, nontender, nondistended. Active bowel sounds present 4 quadrants. Tolerating diet. GENITOURINARY: Continues to void clear, yellow urine. INTEGUMENTARY: Skin is warm and dry with no clubbing or cyanosis present. NEUROLOGIC: Cranial nerves II through XII intact. No focal deficits. MUSKULOSKELETAL: Able to move all extremities, strength equal bilaterally, gait normal. PSYCHIATRIC: Alert and oriented to person place and time, appropriate affect, intact judgment and insight. INVASIVE LINES AND TUBES: Right Thoravent chest tube remains in place to low continuous wall suction -20 cm H2O. No airleak is present. Draining thin serosanguineous drainage with 120 mL output in the last 24 hours. - Allied health notes Allied health notes reviewed: nursing - Labs CBC & Chem 7: 08/29/24 04:54 08/29/24 04:54 - Imaging and Cardiology Chest x-ray: report reviewed, image reviewed Assessment and Plan Assessment: Right-sided pneumothorax, status post right-sided thoracentesis, status post placement of right Thoravent chest tube Recurrent right-sided pleural effusion with 4 previous thoracentesis right side, Cytology from July 2024 negative for malignancy History of renal cell carcinoma with previous right-sided nephrectomy History of brain tumor, status post surgery with subsequent removal Coronary artery disease with previous PCI/stent in January 2024 History of myocardial infarction Hypertension Hyperlipidemia Hypothyroid Chronic atrial fibrillation on Eliquis for anticoagulation Ischemic cardiomyopathy status post AICD/pacemaker placement Congestive heart failure Asbestosis Severe obstructive sleep apnea, noncompliant with CPAP use Obesity with a BMI of 31.0 kg/m History of asthma Osteoarthritis Remote history of nicotine dependence, quit smoking 40 years ago Plan: We will place the right Thoravent chest tube to waterseal, removed from wall suction. Continue to encourage use of incentive spirometry 10 times every hour while awake. Encourage ambulation, increase activity as tolerated. Pleural fluid cytology results from his thoracentesis on August 28, 2024 remain pending. We will continue to follow. Medical management of other comorbidities per Dr. Martino and pulmonary/critical care medicine. Continue to monitor daily chest x-rays. More recommendations to follow based on patient's clinical course. Time with Patient: Greater than 30
[2024-08-30] MEDS: DIGOXIN 125 MCG TAB PO SCH (09:08)
--- NOTE | 2024-08-30 09:54 | P.PN ---
Subjective Progress Note Date: 08/30/24 Patient is an 84-year-old male with past medical history significant for metastatic renal cell carcinoma with previous right-sided nephrectomy, ischemic cardiomyopathy with AICD/pacemaker, hypertension, hyperlipidemia, obesity, severe obstructive sleep apnea, moderate persistent bronchial asthma, coronary artery disease with previous PCI/stenting, chronic atrial fibrillation, asbestosis, recurrent right-sided pleural effusion. Patient has underwent multiple previous right-sided thoracentesis. Previous pleural fluid technically transudate based on lights criteria. Cytology has been unremarkable for malignant cells. Most recently, right-sided thoracentesis performed on 08/27/[address] Sauceda in the outpatient [facility]. A total of 1.4 L was removed from the pleural space. Fluid cytology still pending. Follow-up chest x-ray showing a right-sided hydropneumothorax. Findings thought to represent trapped lung. Patient followed up in the pulmonary office yesterday. Repeat chest x-ray did not show any improvement in the right-sided pneumothorax. Patient was directed to emergency department. Cardiothoracic surgery consulted for possible Pleurx catheter insertions versus thoracoscopic surgery and pleural biopsies. Patient currently being evaluated on the observation unit. Follow-up chest x-ray showing increasing moderate to large size right-sided hydropneumothorax estimated at 50% with air-fluid level. No thoracotomy tube was placed. Patient is currently on room air. SpO2 recorded at 95%. Reports increased work of breathing with exertion. No notable tracheal shift. No significant chest pain. Nontachycardic and blood pressure is stable. CBC: WBC count 8.9, hemoglobin 13, platelets 217. Coagulation profile with a PT of 11.6, INR 1.1, APTT 25. CMP: Sodium 137, potassium 4.8, chloride 97, serum bicarb 30, BUN 24, creatinine 1.36, glucose 155. Vital signs: Afebrile, heart rate 67 bpm, blood pressure 130/78 mmHg, SpO2 recorded at 95% on room air. The patient is seen today August 30, 2024 in follow-up in the observation unit. He is currently sitting up in a chair. Awake and alert in no acute distress. Maintaining O2 saturations in the 90s on room air. His right sided chest tube has been placed to waterseal. He had approximately 120 mL of serosanguineous fluid out. No leak noted. Chest x-ray shows no appreciable pneumothorax. Improved small right pleural effusion. White count 8.4. Hemoglobin 11.7. Platelets 195. Sodium 133. Potassium 3.6. Bicarb 30. BUN 26. Creatinine 1.16. Glucose 112. He remains on Symbicort and albuterol along with 10 mg of prednisone daily. Continued on oral diuretics. Objective - Vital Signs Vital signs: Vital Signs Temp 97.9 F 08/30/24 08:19 Pulse 61 08/30/24 08:19 Resp 16 08/29/24 14:00 BP 100/66 08/30/24 08:19 Pulse Ox 100 08/30/24 08:19 FiO2 Intake & Output 08/29/24 08/30/24 08/30/24 18:59 06:59 18:59 Intake Total 850 Output Total 1800 Balance -950 Intake: IV 200 Potassium Chloride 10 meq 200 In Water For Injection 1 100ml.bag @ 100 mls/hr IVPB Q1H [facility] Rx#: [id number] Oral 650 Output: Urine 1800 Other: Voiding Method Toilet Toilet # Voids 1 # Bowel Movements 1 - Exam GENERAL EXAM: Alert, active, 84-year-old male patient, up in a chair, on room air, comfortable in no apparent distress. HEAD: Normocephalic. EYES: Normal reaction of pupils, equal size. NOSE: Clear with pink turbinates. THROAT: No erythema or exudates. NECK: No masses, no JVD. CHEST: No chest wall deformity. Right sided Thora vent catheter in place to Pleur-evac to waterseal LUNGS: Equal air entry with no crackles, wheeze, rhonchi or dullness. CVS: S1 and S2 normal with no audible murmur, regular rhythm. ABDOMEN: No hepatosplenomegaly, normal bowel sounds, no guarding or rigidity. SPINE: No scoliosis or deformity SKIN: No rashes CENTRAL NERVOUS SYSTEM: No focal deficits, tone is normal in all 4 extremities. EXTREMITIES: There is no peripheral edema. No clubbing, no cyanosis. Peripheral pulses are intact. - Labs CBC & Chem 7: 08/29/24 04:54 08/29/24 04:54 Assessment and Plan Assessment: Right-sided hydropneumothorax, iatrogenic versus trapped lung, chest x-ray showing large, approximately 50% pneumothorax. Thora vent catheter placed 08/29/2024. Chest x-ray shows no significant pneumothorax. Currently to Pleur- evac and to waterseal. No leak Acute dyspnea, secondary to above, recovered, on room air oxygen Recurrent right-sided pleural effusion with multiple previous thoracentesis History of renal cell carcinoma with previous right-sided nephrectomy Acute kidney injury History of asbestosis History of ischemic cardiomyopathy with AICD/pacemaker Coronary artery disease with previous PCI/stenting Chronic atrial fibrillation, maintained on long-term anticoagulation with Eliquis Obesity, with a BMI of 31 kg/m Severe obstructive sleep apnea, AHI 44, nontolerant of CPAP Moderate persistent bronchial asthma, stable and inactive Plan: The patient was seen and evaluated Labs, chest x-ray and medications reviewed No significant pneumothorax, no leak Right sided Thora vent remains in place Follow-up chest x-ray in a.m. Continue Symbicort, albuterol Continue oral diuretics Stable and on room air oxygen We will continue to follow I have personally seen and examined the patient, performed the documentation and the assessment and plan as written. Number of minutes spent on the visit: 10 Dictation was produced using [employer] dictation software. Please excuse any grammatical, word or spelling errors.
--- NOTE | 2024-08-30 10:47 | P.HPIM ---
History of Present Illness H&P Date: 08/28/24 Miguel A Sierra, is an 84-year-old male who presented to [facility] emergency room with a chief complaint of worsening shortness of breath. Patient recently underwent pleurocentesis on 08/27/2024 with Attending outpatient with a total of 1.4 L removed. Patient has a history of frequent thoracentesis is unremarkable for malignant cells. He was evaluated in the emergency room vital examination on presentation revealed. vital signs temp 97.9, heart 61, blood pressure 100/66 with pulse ox of 100% on room air Laboratory data reveals white blood cell 8.87, hemoglobin 12.9, creatinine 1.36 bun 24 Testing in the emergency room revealed chest x-ray completed showing moderate to large size pneumothorax 50% small right pleural effusion Patient was admitted to medical floor for further evaluation and treatment patient will be admitted pulmonary cardiothoracic surgery consulted for pneumothorax. Past medical history is significant for reoccurring pleural effusions requiring thoracentesis nonmalignant, asthma, CHF, coronary artery disease, metastatic onur al cell carcinoma status post right nephrectomy, chronic atrial fibrillation, obstructive sleep apnea, osteoarthritis and previous asbestos exposure On review of systems patient is alert and oriented x 3. Patient denies chest pain. Patient reports some shortness of breath. Patient denies nausea vomiting or diarrhea. 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 CERVICAL FUSION. TOTAL SUNITHA HIPS. UMB HERNIA. RT SCOPE X2. TOTAL RT KNEE. right kidney removed, right brain tumor removed. thoracentesis 07/28/24. Past Anesthesia/Blood Transfusion Reactions: No Reported Reaction Date of Last Stent Placement:: Jan 2024 Type of Cardiac Device: AICD Device Placement Date:: Jun 2024 Past Psychological History: No Psychological Hx Reported Smoking Status: Former smoker - Past Family History Mother Additional Family Medical History / Comment(s): LIVER/COLON CANCER. Father Family Medical History: Myocardial Infarction ([place]) Additional Family Medical History / Comment(s): CABG. AGE 83. Medications and Allergies Home Medications Medication Instructions Recorded Confirmed Type Losartan [Cozaar] 12.5 mg PO HS 11/26/15 08/28/24 History Pravastatin Sodium [Pravachol] 80 mg PO HS 05/27/18 08/28/24 History Apixaban [Eliquis] 5 mg PO BID #60 tab 05/29/18 08/28/24 Rx Albuterol Inhaler [Ventolin Hfa 2 puff INHALATION RT-Q4H PRN 07/27/24 08/28/24 History Inhaler] Clopidogrel [Plavix] 75 mg PO DAILY 07/27/24 08/28/24 History Digoxin [Digitek] 125 mcg PO Q2D 07/27/24 08/28/24 History Fluticasone Propion/Salmeterol 1 puff INHALATION RT-BID 07/27/24 08/28/24 History [Advair Hfa 45-21 Mcg Inhaler] Levothyroxine Sodium [Synthroid] 25 mcg PO AC-BRKFST 07/27/24 08/28/24 History Metoprolol Succinate [Toprol XL] 50 mg PO BID 07/27/24 08/28/24 History Albuterol Nebulized [Ventolin 2.5 mg INHALATION RT-TID 08/28/24 08/28/24 History Nebulized] Furosemide [Lasix] 40 mg PO DAILY 08/28/24 08/28/24 History predniSONE See Taper PO DAILY 08/28/24 08/28/24 History Allergies Allergy/AdvReac Type Severity Reaction Status Date / Time empagliflozin Allergy Rash/Hives Verified 08/28/24 15:21 [From [facility]] acetaminophen [From [place]] AdvReac Nausea & Verified 08/28/24 15:21 Vomiting hydrocodone [From [place]] AdvReac Nausea & Verified 08/28/24 15:21 Vomiting Physical Exam Vitals: Vital Signs Temp Pulse Resp BP Pulse Ox 08/28/24 15:29 98.5 F 60 19 115/90 95 08/28/24 14:26 20 08/28/24 13:51 70 20 133/80 95 08/28/24 13:44 98.2 F 71 20 124/76 96 Intake and Output 08/28/24 08/28/24 08/28/24 06:59 14:59 22:59 Other: Weight 95.254 kg In general patient is alert and oriented x 3 in no distress HEENT head normocephalic and atraumatic Neck is supple no JVD no goiter no lymphadenopathy no carotid bruit Chest examination is clear to auscultation no crackles no wheezing Cardiac exam reveals regular heart sounds S1 and S2 no gallops no murmurs Abdomen is soft nontender no organomegaly with normal bowel sounds Extremity exam reveals no edema no cyanosis or clubbing Neurological examination reveals no gross focal deficits Results CBC & Chem 7: 08/29/24 04:54 08/29/24 04:54 Labs: Abnormal Lab Results - Last 24 Hours (Table) 08/28/24 08/28/24 Range/Units 13:52 13:52 Hgb 12.9 L (13.0-17.0) g/dL Hct 37.7 L (39.6-50.0) % MPV 9.2 L (9.5-12.2) fL Neutrophils # 8.14 H (1.80-7.70) 10*3/uL Lymphocytes # 0.52 L (0.90-5.00) 10*3/uL Monocytes # 0.16 L (0.20-1.00) 10*3/uL Eosinophils # 0.01 L (0.04-0.35) 10*3/uL Chloride 97 L (98-107) mmol/L BUN 24 H (9-20) mg/dL Creatinine 1.36 H (0.66-1.25) mg/dL Glucose 155 H (74-99) mg/dL Assessment and Plan Assessment: 1. Shortness of breath secondary to right sided pneumothorax 2. Recurrent right-sided pleural effusion with multiple previous thoracentesis 3. History of renal cell carcinoma with previous right-sided nephrectomy 4. History of ischemic cardiomyopathy with AICD and pacemaker placement 5. History of chronic atrial fibrillation maintained on long-term anticoagulation with Eliquis 6. History of ischemic cardiomyopathy with AICD pacemaker placement 7. Acute kidney injury 8. History of asbestos exposure DVT prophylaxis SCDs Eliquis on hold awaiting cardiothoracic input. GI prophylax Protonix Pulmonary and cardiothoracic surgery consulted Repeat labs ordered Chest tube placement Time with Patient: Greater than 30 (Greater than 60% of the total time spent in counseling and coordination of care)
--- NOTE | 2024-08-30 10:48 | P.PN ---
Subjective Progress Note Date: 08/29/24 Miguel A Sierra, is an 84-year-old male who presented to [facility] emergency room with a chief complaint of worsening shortness of breath. Patient recently underwent pleurocentesis on 08/27/2024 with Attending outpatient with a total of 1.4 L removed. Patient has a history of frequent thoracentesis is unremarkable for malignant cells. He was evaluated in the emergency room vital examination on presentation revealed. vital signs temp 97.9, heart 61, blood pressure 100/66 with pulse ox of 100% on room air Laboratory data reveals white blood cell 8.87, hemoglobin 12.9, creatinine 1.36 bun 24 Testing in the emergency room revealed chest x-ray completed showing moderate to large size pneumothorax 50% small right pleural effusion Patient was admitted to medical floor for further evaluation and treatment patient will be admitted pulmonary cardiothoracic surgery consulted for pneumothorax. Past medical history is significant for reoccurring pleural effusions requiring thoracentesis nonmalignant, asthma, CHF, coronary artery disease, metastatic renal cell carcinoma status post right nephrectomy, chronic atrial fibrillation, obstructive sleep apnea, osteoarthritis and previous asbestos exposure On review of systems patient is alert and oriented x 3. Patient denies chest pain. Patient reports some shortness of breath. Patient denies nausea vomiting or diarrhea. Patient denies any urinary burning or frequency On 08/29/2024 patient is alert and oriented x 3. Patient has chest tube to wall suction. Cardiothoracic and pulmonary services are following. Patient reports improvement in shortness of breath. Patient denies chest pain. Patient denies nausea vomiting or diarrhea. Patient denies any urinary burning or frequency Objective - Vital Signs Vital signs: Vital Signs Temp 97.8 F 08/29/24 14:00 Pulse 74 08/29/24 14:00 Resp 16 08/29/24 14:00 BP 117/70 08/29/24 14:00 Pulse Ox 98 08/29/24 14:00 FiO2 Intake & Output 08/28/24 08/29/24 08/29/24 18:59 06:59 18:59 Intake Total 700 Output Total 900 1800 Balance -900 -1100 Weight 95.254 kg Intake: IV 200 Potassium Chloride 10 meq 200 In Water For Injection 1 100ml.bag @ 100 mls/hr IVPB Q1H [facility] Rx#: [id number] Oral 500 Output: Urine 900 1800 Other: Voiding Method Toilet Toilet # Voids 1 # Bowel Movements 1 - Exam In general patient is alert and oriented x 3 in no distress HEENT head normocephalic and atraumatic Neck is supple no JVD no goiter no lymphadenopathy no carotid bruit Chest examination is clear to auscultation no crackles no wheezing Cardiac exam reveals regular heart sounds S1 and S2 no gallops no murmurs Abdomen is soft nontender no organomegaly with normal bowel sounds Extremity exam reveals no edema no cyanosis or clubbing Neurological examination reveals no gross focal deficits - Labs CBC & Chem 7: 08/29/24 04:54 08/29/24 04:54 Labs: Abnormal Lab Results - Last 24 Hours (Table) 08/29/24 08/29/24 Range/Units 04:54 04:54 RBC 4.05 L (4.40-5.60) 10*6/uL Hgb 11.7 L (13.0-17.0) g/dL Hct 34.6 L (39.6-50.0) % MPV 9.3 L (9.5-12.2) fL Immature Gran # 0.06 H (0.00-0.04) 10*3/uL Sodium 133 L (137-145) mmol/L Chloride 97 L (98-107) mmol/L BUN 26 H (9-20) mg/dL Glucose 112 H (74-99) mg/dL Total Protein 5.9 L (6.3-8.2) g/dL Assessment and Plan Assessment: 1. Shortness of breath secondary to right sided pneumothorax 2. Recurrent right-sided pleural effusion with multiple previous thoracentesis 3. History of renal cell carcinoma with previous right-sided nephrectomy 4. History of ischemic cardiomyopathy with AICD and pacemaker placement 5. History of chronic atrial fibrillation maintained on long-term anticoagulation with Eliquis 6. History of ischemic cardiomyopathy with AICD pacemaker placement 7. Acute kidney injury 8. History of asbestos exposure DVT prophylaxis SCDs Eliquis on hold awaiting cardiothoracic input. GI prophylax Protonix Pulmonary and cardiothoracic surgery consulted Repeat labs ordered Chest tube placement
--- NOTE | 2024-08-30 10:50 | P.PN ---
Subjective Progress Note Date: 08/30/24 Miguel A Sierra, is an 84-year-old male who presented to [facility] emergency room with a chief complaint of worsening shortness of breath. Patient recently underwent pleurocentesis on 08/27/2024 with Attending outpatient with a total of 1.4 L removed. Patient has a history of frequent thoracentesis is unremarkable for malignant cells. He was evaluated in the emergency room vital examination on presentation revealed. vital signs temp 97.9, heart 61, blood pressure 100/66 with pulse ox of 100% on room air Laboratory data reveals white blood cell 8.87, hemoglobin 12.9, creatinine 1.36 bun 24 Testing in the emergency room revealed chest x-ray completed showing moderate to large size pneumothorax 50% small right pleural effusion Patient was admitted to medical floor for further evaluation and treatment patient will be admitted pulmonary cardiothoracic surgery consulted for pneumothorax. Past medical history is significant for reoccurring pleural effusions requiring thoracentesis nonmalignant, asthma, CHF, coronary artery disease, metastatic renal cell carcinoma status post right nephrectomy, chronic atrial fibrillation, obstructive sleep apnea, osteoarthritis and previous asbestos exposure On review of systems patient is alert and oriented x 3. Patient denies chest pain. Patient reports some shortness of breath. Patient denies nausea vomiting or diarrhea. Patient denies any urinary burning or frequency On 08/29/2024 patient is alert and oriented x 3. Patient has chest tube to wall suction. Cardiothoracic and pulmonary services are following. Patient reports improvement in shortness of breath. Patient denies chest pain. Patient denies nausea vomiting or diarrhea. Patient denies any urinary burning or frequency On 08/30/2024 patient is alert and oriented x 3. Chest tube has been taken off wall suction. Patient reports he feels well denies chest pain or shortness of breath. Patient denies nausea vomiting or diarrhea. Patient denies any urinary burning or frequency. Current vital signs temp 97.9, heart 61, blood pressure 100/66 on room air at 100%. Creatinine improving to 1.16 bun 26. Hemoglobin 11.7. Objective - Vital Signs Vital signs: Vital Signs Temp 97.9 F 08/30/24 08:19 Pulse 61 08/30/24 08:19 Resp 16 08/29/24 14:00 BP 100/66 08/30/24 08:19 Pulse Ox 100 08/30/24 08:19 FiO2 Intake & Output 08/29/24 08/30/24 08/30/24 18:59 06:59 18:59 Intake Total 850 Output Total 1800 Balance -950 Intake: IV 200 Potassium Chloride 10 meq 200 In Water For Injection 1 100ml.bag @ 100 mls/hr IVPB Q1H [facility] Rx#: [id number] Oral 650 Output: Urine 1800 Other: Voiding Method Toilet Toilet # Voids 1 # Bowel Movements 1 - Exam In general patient is alert and oriented x 3 in no distress HEENT head normocephalic and atraumatic Neck is supple no JVD no goiter no lymphadenopathy no carotid bruit Chest examination is clear to auscultation no crackles no wheezing Cardiac exam reveals regular heart sounds S1 and S2 no gallops no murmurs Abdomen is soft nontender no organomegaly with normal bowel sounds Extremity exam reveals no edema no cyanosis or clubbing Neurological examination reveals no gross focal deficits - Labs CBC & Chem 7: 08/29/24 04:54 08/29/24 04:54 Assessment and Plan Assessment: 1. Shortness of breath secondary to right sided pneumothorax 2. Recurrent right-sided pleural effusion with multiple previous thoracentesis 3. History of renal cell carcinoma with previous right-sided nephrectomy 4. History of ischemic cardiomyopathy with AICD and pacemaker placement 5. History of chronic atrial fibrillation maintained on long-term anticoagulation with Eliquis 6. History of ischemic cardiomyopathy with AICD pacemaker placement 7. Acute kidney injury 8. History of asbestos exposure DVT prophylaxis SCDs Eliquis on hold awaiting cardiothoracic input. GI prophylax Protonix Pulmonary and cardiothoracic surgery consulted Repeat labs ordered Chest tube placement
[2024-08-30 20:55] VITALS: RESP 18
[2024-08-31 04:08] LABS: Basophils # (A) 0.05 10*3/uL (0.00-0.10); Basophils % (A) 0.6 %; Eosinophils # (A) 0.17 10*3/uL (0.04-0.35); Eosinophils % (A) 2.1 %; HCT 36.5 % (39.6-50.0); HGB 12.2 g/dL (13.0-17.0); Lymphocytes # (A) 1.62 10*3/uL (0.90-5.00); Lymphocytes % (A) 19.8 %; MCH 28.8 pg (27.0-32.0); MCHC 33.4 g/dL (32.0-37.0); MCV 86.3 fL (80.0-97.0); Mean Platelet Volume 9.6 fL (9.5-12.2); Monocytes # (A) 0.69 10*3/uL (0.20-1.00); Monocytes % (A) 8.4 %; Neutrophils # (A) 5.56 10*3/uL (1.80-7.70); Neutrophils % (A) 67.8 %; Platelet Count 233 10*3/uL (140-440); RBC 4.23 10*6/uL (4.40-5.60); RDW 14.5 % (11.5-14.5)
[2024-08-31 04:21] LABS: ALT 22 U/L (4-49); AST 25 U/L (17-59); African American GFR (CKD) 69 (>60 ml/min/1.73 sqM); Albumin 3.5 g/dL (3.5-5.0); Alkaline Phosphatase 96 U/L (38-126); Anion Gap 6 mmol/L; Blood Urea Nitrogen 24 mg/dL (9-20); Calcium 9.2 mg/dL (8.4-10.2); Carbon Dioxide 33 mmol/L (22-30); Chloride 97 mmol/L (98-107); Glucose 109 mg/dL (74-99); Non-African American GFR(CKD) 59 (>60 ml/min/1.73 sqM); Potassium 4.3 mmol/L (3.5-5.1); Sodium 136 mmol/L (137-145); Total Bilirubin 0.6 mg/dL (0.2-1.3); Total Protein 5.8 g/dL (6.3-8.2)
[2024-08-31] MEDS: PANTOPRAZOLE 40 MG TABLET PO SCH (06:34)
--- NOTE | 2024-08-31 08:07 | XR ---
EXAMINATION TYPE: XR chest 2V DATE OF EXAM: 08/31/2024 5:44 AM COMPARISON: 08/30/2024 CLINICAL INDICATION: Male, 84 years old with history of Right-sided pneumothorax, , TECHNIQUE: Frontal and lateral views FINDINGS: Left anterior chest wall AICD generator with right ventricular lead. Heart remains borderline in size . Ongoing small right pleural effusion with patchy right basilar opacity. Interstitial density shows improvement. There is a right-sided Thoravent catheter. No appreciable apical pneumothorax. There is a subtle edge projecting obliquely across the right mid lung, etiology unclear. Unusual configuration for pneumothorax. IMPRESSION: 1. Right-sided Thora-vent catheter in place. While no right apical pneumothorax is seen, there is an unusual obliquely oriented edge projecting along the right mid lung. Atypical configuration for a pne umothorax and lung markings extend beyond this edge. Further clinical correlation and surveillance fo llow-up recommended. 2. Ongoing small right pleural effusion with adjacent atelectasis and/or consolidation. The interstit ium shows improvement. [facility], , 08/31/2024 8:05 AM
[2024-08-31 08:44] VITALS: BP 105/66; PULSE 58; TEMP 97.9
--- NOTE | 2024-08-31 09:38 | P.PN ---
Subjective Progress Note Date: 08/31/24 Principal diagnosis: Right pneumothorax, recurrent right pleural effusion. past medical history significant for hypertension, hyperlipidemia, hypothyroid, chronic atrial fibrillation on Eliquis for anticoagulation, metastatic renal cell carcinoma with previous right-sided nephrectomy, ischemic cardiomyopathy with an AICD/pacemaker, congestive heart failure, severe obstructive sleep apnea noncompliant with CPAP use, obesity with a BMI of 31.0 kg/m, asthma, coronary artery disease with previous PCI/stenting in December 2023, history of myocardial infarction in December 2023, asbestosis, history of brain tumor, osteoarthritis, recurrent right pleural effusion status post 4 previous thoracentesis on the right side and previous tobacco dependence, quit smoking 40 years ago. POD #2 placement of right Thoravent The patient was seen and examined in follow-up today August 31, 2024 at his bedside on the first floor observation unit. He is currently up ambulating in the hallway, is alert, oriented x 3 and is in no acute apparent distress. He denies any complaints of pain or shortness of breath at this time. Oxygen saturations are 97% on room air and he is achieving 2500 mL on his incentive spirometry with encouragement. Right chest Thoravent remains in place and is cu rrently capped. Chest x-ray this morning reviewed and shows no pneumothorax. Objective - Vital Signs Vital signs: Vital Signs Temp 97.9 F 08/31/24 08:00 Pulse 80 08/31/24 08:30 Resp 18 08/31/24 08:30 BP 105/66 08/31/24 08:00 Pulse Ox 94 L 08/31/24 08:18 FiO2 Intake & Output 08/30/24 08/31/24 08/31/24 18:59 06:59 18:59 Intake Total 570 180 Balance 570 180 Intake: Oral 570 180 Other: Voiding Method Toilet # Voids 1 - Exam CONSTITUTIONAL: Appears comfortable, cooperative, no acute distress RESPIRATORY: Lungs sounds diminished bilaterally. Respirations symmetrical, nonlabored. Currently on room air with oxygen saturation 97%. Able to achieve 2500 mL on incentive spirometry. Strong cough. CARDIOVASCULAR: S1, S2 present. Irregular rate and rhythm, atrial fibrillation rhythm on telemetry. Palpable peripheral pulses bilaterally. No edema present. No calf pain or tenderness noted. GASTROINTESTINAL: Abdomen soft, nontender, nondistended. Active bowel sounds present 4 quadrants. Tolerating diet. GENITOURINARY: Continues to void clear, yellow urine. INTEGUMENTARY: Skin is warm and dry with no clubbing or cyanosis present. NEUROLOGIC: Cranial nerves II through XII intact. No focal deficits. MUSKULOSKELETAL: Able to move all extremities, strength equal bilaterally, gait normal. PSYCHIATRIC: Alert and oriented to person place and time, appropriate affect, intact judgment and insight. INVASIVE LINES AND TUBES: Right Thoravent chest tube remains in place and is capped. - Allied health notes Allied health notes reviewed: nursing - Labs CBC & Chem 7: 08/31/24 03:23 08/31/24 03:23 Labs: Abnormal Lab Results - Last 24 Hours (Table) 08/31/24 08/31/24 Range/Units 03:23 03:23 RBC 4.23 L (4.40-5.60) 10*6/uL Hgb 12.2 L (13.0-17.0) g/dL Hct 36.5 L (39.6-50.0) % Immature Gran # 0.11 H (0.00-0.04) 10*3/uL Sodium 136 L (137-145) mmol/L Chloride 97 L (98-107) mmol/L Carbon Dioxide 33 H (22-30) mmol/L BUN 24 H (9-20) mg/dL Glucose 109 H (74-99) mg/dL Total Protein 5.8 L (6.3-8.2) g/dL - Imaging and Cardiology Chest x-ray: report reviewed, image reviewed Assessment and Plan Assessment: Right-sided pneumothorax, status post right-sided thoracentesis, status post placement of right Thoravent chest tube Recurrent right-sided pleural effusion with 4 previous thoracentesis right side, Cytology from July 2024 negative for malignancy History of renal cell carcinoma with previous right-sided nephrectomy History of brain tumor, status post surgery with subsequent removal Coronary artery disease with previous PCI/stent in January 2024 History of myocardial infarction Hypertension Hyperlipidemia Hypothyroid Chronic atrial fibrillation on Eliquis for anticoagulation Ischemic cardiomyopathy status post AICD/pacemaker placement Congestive heart failure Asbestosis Severe obstructive sleep apnea, noncompliant with CPAP use Obesity with a BMI of 31.0 kg/m History of asthma Osteoarthritis Remote history of nicotine dependence, quit smoking 40 years ago Plan: We will remove his right Thoravent tube and repeat chest x-ray. If chest x-ray shows no pneumothorax the patient can be discharged home per the cardiothoracic surgery standpoint when okay with pulmonary/critical care medicine and primary care physician. Continue to encourage use of incentive spirometry 10 times every hour while awake. Encourage ambulation, increase activity as tolerated. Pleural fluid cytology results from his thoracentesis on August 27, 2024 showed mixed inflammatory cells with scattered reactive mesothelial cells, no cy tologically malignant cells were identified. Medical management of other comorbidities per Dr. Martino and pulmonary/critical care medicine. More recommendations to follow based on patient's clinical course. Time with Patient: Greater than 30
--- NOTE | 2024-08-31 10:13 | P.PN ---
Subjective Progress Note Date: 08/31/24 Patient is an 84-year-old male with past medical history significant for metastatic renal cell carcinoma with previous right-sided nephrectomy, ischemic cardiomyopathy with AICD/pacemaker, hypertension, hyperlipidemia, obesity, severe obstructive sleep apnea, moderate persistent bronchial asthma, coronary artery disease with previous PCI/stenting, chronic atrial fibrillation, asbestosis, recurrent right-sided pleural effusion. Patient has underwent multiple previous right-sided thoracentesis. Previous pleural fluid technically transudate based on lights criteria. Cytology has been unremarkable for malignant cells. Most recently, right-sided thoracentesis performed on 08/27/[address] Sauceda in the outpatient Pending sale to [facility]. A total of 1.4 L was removed from the pleural space. Fluid cytology still pending. Follow-up chest x-ray showing a right-sided hydropneumothorax. Findings thought to represent trapped lung. Patient followed up in the pulmonary office yesterday. Repeat chest x-ray did not show any improvement in the right-sided pneumothorax. Patient was directed to emergency department. Cardiothoracic surgery consulted for possible Pleurx catheter insertions versus thoracoscopic surgery and pleural biopsies. Patient currently being evaluated on the observation unit. Follow-up chest x-ray showing increasing moderate to large size right-sided hydropneumothorax estimated at 50% with air-fluid level. No thoracotomy tube was placed. Patient is currently on room air. SpO2 recorded at 95%. Reports increased work of breathing with exertion. No notable tracheal shift. No significant chest pain. Nontachycardic and blood pressure is stable. CBC: WBC count 8.9, hemoglobin 13, platelets 217. Coagulation profile with a PT of 11.6, INR 1.1, APTT 25. CMP: Sodium 137, potassium 4.8, chloride 97, serum bicarb 30, BUN 24, creatinine 1.36, glucose 155. Vital signs: Afebrile, heart rate 67 bpm, blood pressure 130/78 mmHg, SpO2 recorded at 95% on room air. The patient is seen today August 30, 2024 in follow-up in the observation unit. He is currently sitting up in a chair. Awake and alert in no acute distress. Maintaining O2 saturations in the 90s on room air. His right sided chest tube has been placed to waterseal. He had approximately 120 mL of serosanguineous fluid out. No leak noted. Chest x-ray shows no appreciable pneumothorax. Improved small right pleural effusion. White count 8.4. Hemoglobin 11.7. Platelets 195. Sodium 133. Potassium 3.6. Bicarb 30. BUN 26. Creatinine 1.16. Glucose 112. He remains on Symbicort and albuterol along with 10 mg of prednisone daily. Continued on oral diuretics. The patient is seen today August 31, 2024 in follow-up in the observation unit. Awake and alert in no acute distress. He is currently sitting up in a chair at the bedside. Continues to maintain good O2 saturations in the 90s on room air. He has been afebrile. Hemodynamically stable. His right sided Thora vent was removed this morning by CT service. He is continued on Symbicort, albuterol, prednisone. Remains on oral diuretics.. Hemoglobin 12.2. Platelets 233. Sodium 136. Potassium 4.3. Bicarb 33. BUN 24. Creatinine 1.15. Glucose 109. This morning's chest x-ray revealed no right apical pneumothorax seen. Ongoing small right pleural effusion with adjacent atelectasis. Post Thora vent removal chest x-ray pending. Objective - Vital Signs Vital signs: Vital Signs Temp 97.9 F 08/31/24 08:00 Pulse 80 08/31/24 08:30 Resp 18 08/31/24 08:30 BP 105/66 08/31/24 08:00 Pulse Ox 94 L 08/31/24 08:18 FiO2 Intake & Output 08/30/24 08/31/24 08/31/24 18:59 06:59 18:59 Intake Total 570 180 Balance 570 180 Intake: Oral 570 180 Other: Voiding Method Toilet # Voids 1 - Exam GENERAL EXAM: Alert, active, 84-year-old male patient, on room air, comfortable in no apparent distress. HEAD: Normocephalic. EYES: Normal reaction of pupils, equal size. NOSE: Clear with pink turbinates. THROAT: No erythema or exudates. NECK: No masses, no JVD. CHEST: No chest wall deformity. Right sided Thoravent catheter removed. Dressing dry and intact LUNGS: Equal air entry with no crackles, wheeze, rhonchi or dullness. CVS: S1 and S2 normal with no audible murmur, regular rhythm. ABDOMEN: No hepatosplenomegaly, normal bowel sounds, no guarding or rigidity. SPINE: No scoliosis or deformity SKIN: No rashes CENTRAL NERVOUS SYSTEM: No focal deficits, tone is normal in all 4 extremities. EXTREMITIES: There is no peripheral edema. No clubbing, no cyanosis. Peripheral pulses are intact. - Labs CBC & Chem 7: 08/31/24 03:23 08/31/24 03:23 Labs: Abnormal Lab Results - Last 24 Hours (Table) 08/31/24 08/31/24 Range/Units 03:23 03:23 RBC 4.23 L (4.40-5.60) 10*6/uL Hgb 12.2 L (13.0-17.0) g/dL Hct 36.5 L (39.6-50.0) % Immature Gran # 0.11 H (0.00-0.04) 10*3/uL Sodium 136 L (137-145) mmol/L Chloride 97 L (98-107) mmol/L Carbon Dioxide 33 H (22-30) mmol/L BUN 24 H (9-20) mg/dL Glucose 109 H (74-99) mg/dL Total Protein 5.8 L (6.3-8.2) g/dL Assessment and Plan Assessment: Right-sided hydropneumothorax, iatrogenic versus trapped lung, chest x-ray showing large, approximately 50% pneumothorax. Thora vent catheter placed 08/29/2024. Chest x-ray shows no significant pneumothorax. Currently to Pleur- evac and to waterseal. No leak. Today's chest x-ray shows no evidence of right apical pneumothorax. Thora vent removed per CT service. Follow-up chest x-ray pending Acute dyspnea, secondary to above, recovered, on room air oxygen Recurrent right-sided pleural effusion with multiple previous thoracentesis History of renal cell carcinoma with previous right-sided nephrectomy Acute kidney injury History of asbestosis History of ischemic cardiomyopathy with AICD/pacemaker Coronary artery disease with previous PCI/stenting Chronic atrial fibrillation, maintained on long-term anticoagulation with Eliquis Obesity, with a BMI of 31 kg/m Severe obstructive sleep apnea, AHI 44, nontolerant of CPAP Moderate persistent bronchial asthma, stable and inactive Plan: The patient was seen and evaluated Labs, chest x-ray and medications reviewed No significant pneumothorax, no leak Right sided Thora vent removed Follow-up chest x-ray pending Continue Symbicort, albuterol Continue oral diuretics Stable and on room air oxygen Home once cleared by CT service I have personally seen and examined the patient, performed the documentation and the assessment and plan as written. Number of minutes spent on the visit: 10 Dictation was produced using [employer] dictation software. Please excuse any grammatical, word or spelling errors.
--- NOTE | 2024-08-31 10:35 | XR ---
EXAMINATION TYPE: XR chest 1V portable DATE OF EXAM: 08/31/2024 9:13 AM COMPARISON: 08/31/2024 CLINICAL INDICATION: Male, 84 years old with history of Post Thoravent removal, , FINDINGS: Interval removal of a right sided Thora vent. No appreciable pneumothorax. Heart borderline enlarged. Interstitial densities remain. Small right pleural effusion with patchy right basilar opacity also r emains. Left anterior chest wall ICD generator with right ventricular lead. IMPRESSION: 1. Interval removal right-sided Thoravent catheter. No appreciable pneumothorax. 2. Ongoing changes, likely mild pulmonary vascular congestion. 3. Similar small right pleural effusion with adjacent atelectasis and/or consolidation. [facility], , 08/31/2024 10:32 AM
--- NOTE | 2024-08-31 10:48 | P.DS ---
Providers Date of admission: 08/29/24 10:58 Expected date of discharge: 08/31/24 Attending physician: Messi Martino Consults: 08/28/24 14:32 Consult Physician Urgent Consulting Provider: Johny Alvarez Consult Reason/Comments: Recurrent pleural effusion, pneumothorax Do you want consulting provider notified?: Yes Consult Physician Urgent Consulting Provider: Breezy Miller Consult Reason/Comments: Recurrent pleural effusion, pneumothorax Do you want consulting provider notified?: Yes Primary care physician: Messi Martino [facility] Course: Discharge diagnosis 1. Shortness of breath secondary to right sided pneumothorax 2. Recurrent right-sided pleural effusion with multiple previous thoracentesis 3. History of renal cell carcinoma with previous right-sided nephrectomy 4. History of ischemic cardiomyopathy with AICD and pacemaker placement 5. History of chronic atrial fibrillation maintained on long-term anticoagulation with Eliquis 6. History of ischemic cardiomyopathy with AICD pacemaker placement 7. Acute kidney injury 8. History of asbestos exposure Hospital course Miguel A Sierra, is an 84-year-old male who presented to [facility] emergency room with a chief complaint of worsening shortness of breath. Patient recently underwent pleurocentesis on 08/27/[address] Radha sotelo with a total of 1.4 L removed. Patient has a history of frequent thoracentesis is unremarkable for malignant cells. He was evaluated in the emergency room vital examination on presentation r evealed. vital signs temp 97.9, heart 61, blood pressure 100/66 with pulse ox of 100% on room air Laboratory data reveals white blood cell 8.87, hemoglobin 12.9, creatinine 1.36 bun 24 Testing in the emergency room revealed chest x-ray completed showing moderate to large size pneumothorax 50% small right pleural effusion Patient was admitted to medical floor for further evaluation and treatment patient will be admitted pulmonary cardiothoracic surgery consulted for pneumothorax. Past medical history is significant for reoccurring pleural effusions requiring thoracentesis nonmalignant, asthma, CHF, coronary artery disease, metastatic renal cell carcinoma status post right nephrectomy, chronic atrial fibrillation, obstructive sleep apnea, osteoarthritis and previous asbestos exposure On review of systems patient is alert and oriented x 3. Patient denies chest pain. Patient reports some shortness of breath. Patient denies nausea vomiting or diarrhea. Patient denies any urinary burning or frequency On 08/29/2024 patient is alert and oriented x 3. Patient has chest tube to wall suction. Cardiothoracic and pulmonary services are following. Patient reports improvement in shortness of breath. Patient denies chest pain. Patient denies nausea vomiting or diarrhea. Patient denies any urinary burning or frequency On 08/30/2024 patient is alert and oriented x 3. Chest tube has been taken off wall suction. Patient reports he feels well denies chest pain or shortness of breath. Patient denies nausea vomiting or diarrhea. Patient denies any urinary burning or frequency. Current vital signs temp 97.9, heart 61, blood pressure 100/66 on room air at 100%. Creatinine improving to 1.16 bun 26. Hemoglobin 11.7. On 08/31/2024 Thora vent has been removed patient cleared for discharge from pulmonary and cardiothoracic surgery. Patient denies chest pain or shortness of breath. Patient denies nausea vomiting or diarrhea. Patient denies any urinary burning or frequency Patient Condition at Discharge: Stable Plan - Discharge Summary Discharge Rx Participant: No New Discharge Prescriptions: Continue Losartan [Cozaar] 12.5 mg PO HS Pravastatin Sodium [Pravachol] 80 mg PO HS Apixaban [Eliquis] 5 mg PO BID #60 tab Albuterol Inhaler [Ventolin Hfa Inhaler] 2 puff INHALATION RT-Q4H PRN PRN Reason: Shortness Of Breath predniSONE See Taper PO DAILY Clopidogrel [Plavix] 75 mg PO DAILY Digoxin [Digitek] 125 mcg PO Q2D Fluticasone Propion/Salmeterol [Advair Hfa 45-21 Mcg Inhaler] 1 puff INHALATION RT-BID Levothyroxine Sodium [Synthroid] 25 [facility]cg [facility] Metoprolol Succinate [Toprol XL] 50 mg PO BID Albuterol Nebulized [Ventolin Nebulized] 2.5 mg INHALATION RT-TID Furosemide [Lasix] 40 mg PO DAILY Discharge Medication List Losartan [Cozaar] 12.5 mg PO HS 11/26/15 [History] Pravastatin Sodium [Pravachol] 80 mg PO HS 05/27/18 [History] Apixaban [Eliquis] 5 mg PO BID #60 tab 05/29/18 [Rx] Albuterol Inhaler [Ventolin Hfa Inhaler] 2 puff INHALATION RT-Q4H PRN 07/27/24 [History] Clopidogrel [Plavix] 75 mg PO DAILY 07/27/24 [History] Digoxin [Digitek] 125 mcg PO Q2D 07/27/24 [History] Fluticasone Propion/Salmeterol [Advair Hfa 45-21 Mcg Inhaler] 1 puff INHALATION RT-BID 07/27/24 [History] Levothyroxine Sodium [Synthroid] 25 mcg PO [id number] 07/27/24 [History] Metoprolol Succinate [Toprol XL] 50 mg PO BID 07/27/24 [History] Albuterol Nebulized [Ventolin Nebulized] 2.5 mg INHALATION RT-TID 08/28/24 [History] Furosemide [Lasix] 40 mg PO DAILY 08/28/24 [History] predniSONE See Taper PO DAILY 08/28/24 [History] Follow up Appointment(s)/Referral(s): Messi Martino MD [Primary Care Provider] - 1-2 days Johny Alvarez DO [Doctor of Osteopathic Medicine] - 1 Week Discharge Disposition: HOME SELF-CARE
== END 2024-08-31 11:30 | disposition home or self-care (01) | DRG 200 ==
LOC: EC 13:39 → 1SOBS 15:14 → OBSVTOIN 08-29 10:58
PROVIDERS: ADMIT Internal Medicine; ATTEND Internal Medicine
DX: J95.811 Postprocedural pneumothorax (principal); C79.31 Secondary malignant neoplasm of brain; N17.9 Acute kidney failure, unspecified; I11.0 Hypertensive heart disease with heart failure; E66.9 Obesity, unspecified; J45.40 Moderate persistent asthma, uncomplicated; E03.9 Hypothyroidism, unspecified; I48.20 Chronic atrial fibrillation, unspecified; J90 Pleural effusion, not elsewhere classified; J98.11 Atelectasis; I50.9 Heart failure, unspecified; J61 Pneumoconiosis due to asbestos and other mineral fibers; I25.5 Ischemic cardiomyopathy; Z68.31 Body mass index [BMI] 31.0-31.9, adult; E78.5 Hyperlipidemia, unspecified; G47.33 Obstructive sleep apnea (adult) (pediatric); I25.10 Atherosclerotic heart disease of native coronary artery without angina pectoris; I25.2 Old myocardial infarction; Z91.199 Patient's noncompliance with other medical treatment and regimen due to unspecified reason; Z79.01 Long term (current) use of anticoagulants; Z79.02 Long term (current) use of antithrombotics/antiplatelets; Z79.890 Hormone replacement therapy; Z79.51 Long term (current) use of inhaled steroids; Z79.899 Other long term (current) drug therapy; Z87.891 Personal history of nicotine dependence; Z85.528 Personal history of other malignant neoplasm of kidney; Z95.5 Presence of coronary angioplasty implant and graft; Z95.810 Presence of automatic (implantable) cardiac defibrillator; Z96.643 Presence of artificial hip joint, bilateral; Z96.651 Presence of right artificial knee joint; Z98.1 Arthrodesis status; Z88.6 Allergy status to analgesic agent; Z88.5 Allergy status to narcotic agent; Z88.8 Allergy status to other drugs, medicaments and biological substances
CPT/HCPCS: 36415; 71045; 71046; 80053; 85025; 85610; 85730; 94640; 94760; 99285